=== PATIENT | male | born 1935 | race Caucasian/White ===

== ENCOUNTER 2025-06-28 15:48 | Outpatient (AMB) | payer OTHER, MEDICARE, SELFPAY ==
--- OUTSIDE RECORDS SUMMARY | 2025-05-02 07:30 | XMS_ITS ---
[facility] Organization [facility] Address [address] [place] [address] Care Team Providers Care Computer Network Support Specialist Name Role Phone Ana Farias Primary Care Provider [phone] Keisha Ding [phone] REASON FOR VISIT home: dementia Encounters Encounter Location Date Provider Diagnosis [facility] [address] [place] [address] 05/02/2025 Keisha Ding Plan Of Treatment Next Appt Details Provider Name:Ana grady, 06/30/2025 09:30:00 AM, [address] [place], [address], Provider Name:Keisha Ding , 07/25/2025 11:30:00 AM, [address] [place], [address], Progress Notes * SANDI ALEXDOB:1935 ( 89 yo M)Acc No.[id number]:05/02/2025 Progress Note Patient: ALEX NOGUEIRA Provider: Mariam Ding NP :1935 A ge:89 Y S ex:Male Date:05/02/2025 C HN#:[id number] Address[place] [id number] Pcp:Ana Farias Subjective: * Chief Complaints: * H ome: dementia Care Plan Details* * Electronic signature of Rich Ding NP on 06/28/2025 at 05:59 PM EDT Sign off status: Pending * Provider: Mariam Ding NP Date: 0 05/02/2025 Generated for Randall recio/Alicia/Kaylan on: 0 06/28/2025 05:59 PM EDT
--- OUTSIDE RECORDS SUMMARY | 2025-06-14 09:00 | XMS_ITS | Encounter Summary ---
Author Organization [facility] Address [address] [facility] [address] [place] [phone] Phone Care Team Providers Care Pipe Processor Name Role Phone Ana Farias MD Unavailable [phone] Ana Farias MD Primary Care Provider + Reason for Visit * Auth/Cert (Routine) Specialty Diagnoses / Procedures Referred By Linh kumar Referred To Contact Referral ID Status Reason Start Date Expiration Date Visits Re quested Visits Authorized [id number] 1 1 Encounter Details Date Type Department Care Team (Late st Contact Info) Description 06/14/2025 9:00 AM EDT Home Care Visit [facility] [address] [place] [phone] Iraida Espinoza RN [address] [place] [address] [email or web address] SN OASIS RECERTIFICATION/FUP Social History Tobacco Use Types Packs/Day Years Used Date Smoking Tobacco: Former Cigarettes Q uit: 9 Smokeless Tobacco: Never Alcohol Use Standard Drinks/Week Comments No 0 (1 standard drink = 0.6 oz pur e alcohol) Home Health Assessment: Transportation Answer Date Recorded Lack of Transportation (Medical) No 05/04/2025 Lack of Transportation (Non-Medical) No 05/04/2025 Patient Unable or Declines to Respond No 05/04/2025 Education Answer Date Recorded Are you interested in more education? Not on marcin e 02/13/2023 Are you concerned about learning? Not on file 02/13/2023 No 02/13/2023 No 02/13/2023 Food Answer Date Recorded Within the past 6 months we worried whether our food would run out before we got money to buy more. Never True 04/29/2025 Within the past 6 months the food we bought just didn't last and we didn't have enough money to get more. Never True Residential Stability Answer Date Recor ded What is your housing situation today? I have windy sing 04/29/2025 How many times have you move d in the past 12 months? Zero (I did not move) 04/29/2025 Paying for Meds Answer Date Recorded Do you have trouble paying for medicines? No 04/29/2025 Paying Utility Bills Answer Date Record ed Do you have trouble paying your heating or elect ricity bill? No 04/29/2025 Transportation Answer Date Recorded Has the lack of transportati on kept you from medical appointments or from getting medications? No 04/29/2025 Digital Access Answer Date Recorded No 04/29/2025 Yes 04/29/2025 Do you have reliable internet access at home? Ye s 04/29/2025 Do you have a device (e.g., phone, tablet, computer) with a working camera? Yes 04/29/2025 Intimate Partner Violence Answer Date R ecorded Are you denied basic needs s uch as food, clothing, or medical care? No 04/29/2025 In the past 12 months have y ou been in a relationship with a person who hurts, threatens, or tries to control you? No 04/29/2025 Are you denied basic needs s uch as food, clothing, or medical care? No 04/29/2025 In the past 12 months have y ou been in a relationship with a person who hurts, threatens, or tries to control you? No 04/29/2025 Sex and Gender Information Value Date Recorded Sex Assigned at Male 04/07/2023 1:33 PM EDT Legal Sex Male 7:20 PM EST Gender Identity Male 04/07/2023 1:33 PM EDT Sexual Orientation Straight 04/07/2023 1: 33 PM EDT documented as of this encounter Last Filed Vital Signs Vital Sign Reading Time Taken Comments Blood Pressure 124/78 06/14/2025 12:35 PM EDT Pulse 78 06/14/2025 12:35 PM EDT Temperature 36.8 C (98.2 F) 06/14/2025 12:35 PM EDT Respiratory Rate 18 06/14/2025 12:35 PM EDT Oxygen Saturation 98% 06/14/2025 12:35 PM EDT Inhaled Oxygen Concentration - - Weight - - Height - - Body Mass Index - - documented in this encounter Plan of Treatment Upcoming Encounters Date Type Department Care Team (Late st Contact Info) Description 07/01/2025 10:00 AM EDT Home [facility] Visit [facility] [address] [place] [phone] Codi Powell RN [address] [place] [phone] 07/04/2025 3:00 AM EDT Home Care Visit [facility] [address] [place] [phone] Codi Powell RN [address] [place] [phone] 07/11/2025 2:00 AM EDT Home Care Visit [facility] [address] [place] [phone] Codi Powell RN [address] [place] [phone] 07/18/2025 3:30 AM EDT Home Care Visit [facility] [address] [place] [phone] Codi Powell RN [address] [place] [phone] 07/25/2025 1:30 AM EDT Home Care Visit [facility] [address] [place] [address] Codi Powell RN [address] [place] [address] 08/01/2025 1:30 AM EDT Home [facility] Visit [facility] [address] [place], [place] [phone] Codi Powell RN [address] [place] [address] 08/10/2025 12:30 AM EDT Appointment [facility] [address] [place], [place] [phone] Codi Powell RN [address] [place] [address] documented as of this encounter Visit Diagnoses Not on filedocumented in this encounter Additional Health Concerns 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 Assessment Noted Time PHQ-9 Depression Total Score: 11 021 11:25 AM EST PHQ-2 Depression Total Score: 0 09/07/20 21 11:25 AM EST documented as of this encounter Home Health Visit - Care Plan Visit Details Visit Type -SN OASIS RECERTI FICATION/FUP Discipline -Residential Problems Problem Description Start Date Status Goals Interve ntions HH - Urinary Elimination - Impaired Disciplines: All Active Home Health Disciplines, Residential 04/16/2025 Active - 2 problem interventions scheduled/document ed in this visit HH - Wound Disciplines: All Active Home Health Disciplines 04/16/2025 Active 1 goal linked to scheduled/document ed intervention 1 goal intervention scheduled/document ed in this visit HH - Medication Management Disciplines: All Active Home Health Disciplines 04/16/2025 Active 1 goal linked to scheduled/document ed intervention 2 goal interventions scheduled/document ed in this visit HH - Focus of Care and Teaching Disciplines: All Active Home Health Disciplines w/RD 04/16/2025 Active 1 goal linked to scheduled/document ed intervention 1 goal intervention scheduled/document ed in this visit HH - Emergency Planning - Knowledge of Disciplines: All Active Home Health Disciplines 04/16/2025 Active 1 goal linked to scheduled/document ed intervention 2 goal interventions scheduled/document ed in this visit HH - Standard of Care Disciplines: All Active Home Health Disciplines 04/16/2025 Active 1 goal linked to scheduled/document ed intervention 2 goal interventions scheduled/document ed in this visit Goals Goal Associated Problem Outcome Goal Met? Visit Notes HH - Demonstrate/verbalize wound care management, wound/lesion will be free from complications HH - Wound No HH - Safe medication management, avoid unnecessary harm related to medication errors and/or interactions HH - Medication Management No HH - Communication and collaboration to achieve patient goals HH - Focus of Care and Teaching No HH - Knowledge of options for managing care in the event of an emergency related situation. HH - Emergency Planning - Knowledge of No HH - Achieve care management for a safe to home/community discharge from homecare HH - Standard of Care No Interventions Intervention Associated Problem/Goal Status Variance Visit Notes HH - Insert/change indwelling calderón catheter: Description: #20FR 10 CC Balloon SPT Monthly and PRN changes [facility] Problem:HH - Urinary Elimination - Impaired Completed HH - Catheter irrigation as follows: Description: Weekly and/or PRN flushes to SPT 60cc either of sterile water or normal saline Problem:HH - Urinary Elimination - Impaired Completed HH - Assess wounds/lesions/cardona Description: LOCATION: wound to left inner thigh and pressure ulcer stage 1 to left buttocks Problem: - Wound Goal:HH - Demonstrate/verbalize wound care management, wound/lesion will be free from complications Completed - I/E medication management: administration, purpose, dosages, preparation, setup, scheduling, side effects, food/drug interactions, and potential complications as indicated Description: Update patient's copy of medication list as needed. Problem:HH - Medication Management Goal:HH - Safe medication management, avoid unnecessary harm related to medication errors and/or interactions Completed HH - Complete medication review every visit and medication reconciliation as indicated. Pharmacy information: Description: medication reconciliation at [facility], medication review at each visit Problem: - Medication Management Goal:HH - Safe medication management, avoid unnecessary harm related to medication errors and/or interactions Completed HH - Focus of care, teaching completed and plan for next visit Problem: - Focus of Care and Teaching Goal:HH - Communication and collaboration to achieve patient goals Completed Primary Clinical Focus this Visit & Instruction Provided: PT AOX3, VSS/ AFEBRILE/ DENIES CADENA, BLURRY VISION, NO HEARING CONCERNS, NO SWALLOWING ISSUES /NO DIZZINESS/ LSCTA, NO SOB OR COUGH/ BSPOS / NO CONSTIPATION/ URINE IS CLEAR, ostomy OSTOMY CARE PROVIDED TODAY, SOME YELLOW DC AROUND THE STOMA OF OSTOMY. CATHETER TO BE CHANGED UPON NEXT VISIT. ,NO ODOR. DENIES ANY INCREASE OF WEAKNESS, AMBULATING WITHOUT DIFFICULTY OR NEW CONCERNS Instruction Provided to: patient Response to Instruction/Teachin g: Is partially able to teach back topics as evidenced by CONVO. Plan for Next Visit Specific Focus & Education Needed: OSTOMY CHANGE, ASSESS BUTTCKS New Orders: NNO Updated Discharge Plan: CHRONIC OSTOMY CARE, NOONE IDENTIFIED TO TEACH - I/E management of care in an urgent or emergency (ER) situation: When to call your Home Care Team/911, ER plans, supplies, evacuation, when to contact local ER officials and how to stay informed Problem:HH - Emergency Planning - Knowledge of Goal:HH - Knowledge of options for managing care in the event of an emergency related situation. Completed - Emergency planning assessment: the emergency plan, supplies needed, emergency contact numbers and an evacuation plan were reviewed Description: Patient is/are knowledgeable of emergency plans. Problem:HH - Emergency Planning - Knowledge of Goal:HH - Knowledge of options for managing care in the event of an emergency related situation. Completed HH - Assess vital signs, pulse oximetry, pain, and as indicated, orthostatic vital signs Description: use agency-specific parameters Problem:HH - Standard of Care Goal:HH - Achieve care management for a safe to home/community discharge from homecare Completed HH - Assess skin integrity Problem: - Standard of Care Goal:HH - Achieve care management for a safe to home/community discharge from homecare Completed documented in this encounter Care Teams Pipe Processor Relationship Specialty Start Date End Date Ana Farias MD [address] [place] [phone] [email or web address] PCP - General Family Medicine 01/28/19 Ana Farias MD [address] [place] [phone] [email or web address] Historical LMR Provider 08/10/17 documented as of this encounter Additional Source Comments The information contained in this document represents components of the legal health record. It is not the complete legal health record.[facility]
--- OUTSIDE RECORDS SUMMARY | 2025-06-27 07:30 | XMS_ITS ---
Author Organization [facility] marshall Address [address] [place] [address] Care Team Providers Care Engraver Copperplate Name Role Phone Ana Farias Primary Care Provider [phone] Keisha Ding Unavailable [phone] REASON FOR VISIT home:dementia Medications Medication SIG (Take, Route, Frequency, Duration) Notes Start Date End Date Status buPROPion HCl ER (XL) 150 MG Tablet Extended Release 24 Hour 1 tablet Orally Once a day; Duration: 90 days Active Lisinopril 10 MG Tablet 1 tablet Orally once a day; Duration: 90 days Active Albuterol Sulfate HFA 108 (90 Base) MCG/ACT Aerosol Solution 1 puff as needed Inhalation every 4 hrs as needed for wheeze; Duration: 15 days Active Advil 200 MG Tablet 1 tab(s) orally ever y 6 hours prn Active Aspirin 325 MG Tablet 1 tab(s) orally QD Active Vitamin D 25 MCG (1000 UT) Tablet 1 tablet Orally Once a day Active Vitamin B Complex TAB 1 PO QD Active Travoprost (THERESA Free) 0.004 % Solution 1 drop into affected eye in the evening Ophthalmic Once a day Active Cefpodoxime Proxetil 200 MG Tablet 1 tablet with food Orally every 12 hrs Active Acetaminophen 325 MG Tablet 2tabs Orally every 6 hrs As needed Active Mupirocin 2 % Ointment 1 application Ext ernally 3x a day Active MiraLax 17 GM/SCOOP Powder 1 scoop mixed with 8 ounces of fluid Orally Once a day Active Bactrim DS 800-160 MG Tablet 1 tablet Orally twice a day Active Social History Social History Additional Details Category Social Info Options Details Social History 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 delmar is really having trouble walking. 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 ; Benign prostatic hyperplasia with lower urinary tract symptoms N40.1 ; ADHD, combined type F90.2 ; HTN I10 ; Hyperlipidemia unspecified E78.5 ; Hypercholesterolemia E78.00 ; Other megaloblastic anemias, 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 ; CKD, unspecified N18.9 ; Parkinson's disease G20 ; 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 ; Dementia NOS F03.90 and Hearing loss Unspecified H90.5 Assessments Encounter Date Diagnosis (ICD Code) Assessment Notes Treatment Notes Treatment Clinical Notes Section Notes 06/27/2025 Other asthma (ICD-10 - J45.998) 06/27/2025 Alzheimer's disease, unspecified (ICD-10 - G30.9) 06/27/2025 Atherosclerosis of renal artery (ICD-10 - I70.1) 06/27/2025 Elevated Homocystein e (ICD-10 - E72.19) 06/27/2025 Benign prostatic hyperplasia with lower urinary tract symptoms (ICD-10 - N40.1) 06/27/2025 ADHD, combined type (ICD-10 - F90.2) 06/27/2025 HTN (ICD-10 - I10) 06/27/2025 Hyperlipidemia unspecified (ICD-10 - E78.5) 06/27/2025 Hypercholesterolemia (ICD-10 - E78.00) 06/27/2025 Other megaloblastic anemias, not elsewhere classified (ICD-10 - D53.1) 06/27/2025 CKD, unspecified (ICD-10 - N18.9) 06/27/2025 Parkinson's disease (ICD-10 - G20) 06/27/2025 Vascular parkinsonis m (ICD-10 - G21.4) 06/27/2025 Dementia NOS (ICD-10 - F03.90) 06/27/2025 Hearing loss Unspecified (ICD-10 - H90.5) 06/27/2025 Other plan 1) they have good services at this time and things seems stable but since it's been pretty unpredictable I will return in a month. 2) continue to monitor esquivel care, PT, Urology, Cognition, Advanced care planning/courtney, Plan Of Treatment Next Appt Details Follow Up: 4 Weeks, Reason: home: dementia [facility] 09:30:00 AM, [address] [place], [address], Provider Name:Keisha Ding , 07/25/2025 11:30:00 AM, [address] , [place], [id number], History and Physical Notes * Examination Category Sub-Category Detail Notes Category Not es General Examination HEENT: Head - NC/AT, clear c onjunctiva calderón draining clear yellow urine Lungs: regular breathing ra te and effort - lungs are clear Extremities: no clubbing, no eli a General Appearance: Well appearing and i n no acute distress - He continues to look great - again just freshly showered having exercised - his pulse rate is up a bit but caregiver states that he just worked out on exercise machine, then went upstairs - showered and returned downstairs and has finally reclined but he has be very active prior to my checking vitals. he seems quite vibrant and comfortable and talks easily w/ o distress Skin all clear no lesion seen Neurologic Exam: non-focal exam - cog nition continues to appear good (see hpi) he appears unimpaired (understanding that he is -) Musculoskeletal he walks into room w / walker and caregiver behind him, but he manages to sit w/ some assistance from John but he seems more in control of his body than I have seen previously Progress Notes * LUIS M JUNIOR:1935 ( 89 yo M)Acc No.[id number]:06/27/2025 Progress Note Patient: DELMAR NOGUEIRA Provider: Mariam Ding NP :1935 A ge:89 Y S ex:Male Date:06/27/2025 C #:[id number] Address:[address] [facility], [id number] Pcp:Ana Farias Subjective: * Chief Complaints: * 1 . Home:dementia. * HPI: I nterim History: home visit secondary to disability chart reviewed: no changes noted since last seen ARRIVED IN HOME 1130-12:30 time split between and pt TOTAL TIME SPENT 4 5 mins including team meeting and documentation after visit. with message sent to PCP Interim History: previous note:reviewed [age] year old male presents with c/o Hospitalizations A dmit date: 04/29/25 D ischarge Date: 05/03/25 F acility: [facility] D iagnosis: severe sepsis secondary to UTI P ending consults: urology outpattient P ending studies: none Home visit w/ pt and his - Delmar is upstairs w/ his aide having a shower so much of the visit was conducted w/ his though I met w/ him at the end of the visit. Courtney states that delmar is doing very well and she is better because of it. she is sleeping more and this has really helped the situation. 2 nights of 6 hours. Urinary system: tomorrow they see the new urologist - she's been worried about her decision to have suprapubic catheter. but he hasn't had infection 2 months. so she is very happy to see that it was a good decsision was hard to have to make this alone. Caregiving: things feel better because she (courtney) has had 2 nights of sleeps she thinks that is because she is a bit less stressed and puts her book down at 11 otherwise she will keep reading VNA: still coming but only once a month - they change catheter - this was to be the first one but they called to reschedule but since they have appt tomorrow the urologist will change it. she does the dressing and it's going better - she feels that it's better to do it - was squeamish - but now is ok. no issues COGNITION: he is very clear, less disorientation with less hospitalizations SUPPORTS: going ok, since she is doing better - had a nice birthday celebration w/ him...they don't do the celebrations here I'm done w/ hostessing . Thrnksgiving : son ordered a hospital bed for 3 nights and ordered a ride for them - this feels that (kush) is really getting this issue. she feels that he notices things on her. - noticed tremor and she avoided conversation 'don't want to talk about it until I know what it is ...son in [place] was asking about disability - of hers 'she said - I don't want to be a burden to any of the children' - they have lives to live discussed her care of delmar....long conversation about advanced care thoughts and how she feels about accepting help - for herself but she feels regarding delmar that she loves him and wants to see him have a good life - she complains at times aobut his caretaking but she also feels that if given a choice she woujldn't put him in a home (this was discussed to also compliment her potential need for care (possible parkinsons) and her reticence to accept care - she is afraid of the burden on her kids - this is a subject covered more in her chart but also just touched on today for more discussion once the diagnosis of parkinsons is clear. she has Not told delmar about the possiblity as he holds on to somethings and worries - she wants to protect him from that listening to delmar and his caregiver - very interesting talk going back and forth - delmar is well matched with john and they are talking extensively about complex issues. caregiver states that delmar was working out on the exercise machine and did a long work out and was at a harder level - delmar looks stronger and looks like he's lost weight. When he comes down he is pleasant and quite conversant w/ me - smiling and looking very happy and well taken care of - his strength is notably improved and his color and manner see improved not declined ADVANCED CARE CONVERSATION: limited today - courtney states that she wouldn't put him in a home - that she wants to keep him home - this is not a change but she is talking aobut it in light of her possible decline - this part would be very distressing to her as her goal is to keep him home. * ROS: S ee HPI. Other systems reviewed and noncontributory except for as noted above mood seems good and sleeps well. not getting up at night, in hospital bed and has a camera on him. she sleeps in adjacent room - he sleeps in living room. * Medical History: * Surgical History: * Hospitalization/Major Diagno stic Procedure: * Family History: F ather: 87 yrs. M other: , basal cell CA; fr breast ca, diagnosed with Cancer. M aternal Grand Father: CA, diagnosed with Cancer. M aternal Grand Mother: CA, diagnosed with Cancer. S ibluanne: . Tobias jackson: dtr w/ basal cell skin ca, diagnosed with Cancer. 3 brother(s) - healthy. 3 son(s) , 2 daughter(s) . . F amily History Verified..? eldest daughter had CA 11 years ago, -spinal CA-is in remission Uncle of massive heart attack denies family hx bipolar though several suicidal people and early of one sib Father and Brother h/o Parkinson's disease youngest Brother in April of 2021 of leukemia brother of parkinson december/January 2024. * Social History: Quan greenes: in [address] [place] in [place]. Smoking Smart Form A re you a:: nonsmoker. S moking: no?Current Smoker: No. A lcohol: 1-2 drinks per week. Marital Status: . Children: 5 -3 sons, 2 daughters. 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 Exercise: walking 3-4 x a week.delmar is really having trouble walking.. Caffeine: 2 cups of tea. Social History Verified. loves to sail. * Medications: T aking Bactrim DS 800-160 MG Tablet 1 tablet Orally twice a day , Taking MiraLax 17 GM/SCOOP Powder 1 scoop mixed with 8 ounces of fluid Orally Once a day , Taking Mupirocin 2 % Ointment 1 application Externally 3x a day , Taking Acetaminophen 325 MG Tablet 2tabs Orally every 6 hrs As needed, Taking Cefpodoxime Proxetil 200 MG Tablet 1 tablet with food Orally every 12 hrs , Taking Travoprost (THERESA Free) 0.004 % Solution 1 drop into affected eye in the evening Ophthalmic Once a day , Taking Vitamin B Complex TAB 1 PO QD , Taking Vitamin D 25 MCG (1000 UT) Tablet 1 tablet Orally Once a day , Taking Aspirin 325 MG Tablet 1 tab(s) orally QD , Taking Advil 200 MG Tablet 1 tab(s) orally every 6 hours , Notes to Pharmacist: prn, Taking Albuterol Sulfate HFA 108 (90 Base) MCG/ACT Aerosol Solution 1 puff as needed Inhalation every 4 hrs as needed for wheeze , Taking Lisinopril 10 MG Tablet 1 tablet Orally once a day , Taking buPROPion HCl ER (XL) 150 MG Tablet Extended Release 24 Hour 1 tablet Orally Once a day , Medication List reviewed and reconciled with the patient * Allergies: Allergies Verified. Objective: * Vitals: I nitials:ms, HR: 110 /min, PulseOx: 98, BP: 138/88 mm Hg. * Examination: G eneral Examination: General Appearance: W ell appearing and in no acute distress - He continues to look great - again just freshly showered having exercised - his pulse rate is up a bit but caregiver states that he just worked out on exercise machine, then went upstairs - showered and returned downstairs and has finally reclined but he has be very active prior to my checking vitals. he seems quite vibrant and comfortable and talks easily w/ o distress. S kin a ll clear no lesion seen. H EENT: H ead - NC/AT, clear conjunctiva. L ungs: r egular breathing rate and effort - lungs are clear. E xtremities: n o clubbing, no edema . N eurologic Exam: n on-focal exam - cognition continues to appear good (see hpi) he appears unimpaired (understanding that he is -). M usculoskeletal h e walks into room w/ walker and caregiver behind him, but he manages to sit w/ some assistance from John but he seems more in control of his body than I have seen previously. f oley draining clear yellow urine. Assessment: * Assessment: 1. A lzheimer's disease, unspecified - G30.9 (Primary) 2 . O ther asthma - J45.998 3 . A therosclerosis of renal artery - I70.1 4 . E levated Homocysteine - E72.19 5 . B enign prostatic hyperplasia with lower urinary tract symptoms - N40.1 6 . 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 H yperlipidemia unspecified - E78.5 9 . H ypercholesterolemia - E78.00 1 0. O ther megaloblastic anemias, not elsewhere classified - D53.1 1 1. C KD, unspecified - N18.9 1 2. P arkinson's disease - G20 1 3. 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 D ementia NOS - F03.90 1 5. H earing loss Unspecified - H90.5 Plan: * Treatment: * Follow Up: 4 Weeks (Reason: home: dementia) Billing Information: * Visit Code: 91592 Established patient, moderate to high severity. Care Plan Details* * Sign off status: Completed true * Provider: Mariam Ding NP Date: 0 06/27/2025 Generated for Randall recio/Alicia/Kaylan on: 0 06/28/2025 05:58 PM EDT
--- NOTE | 2025-06-28 14:54 | A.OFFVIS_ITS ---
Intake Visit Reasons: urinary retention/SPT change Intake Note: New Patient is present for retention SPT change #20 FF Urology Rx:none Blood Thinners:none Imaging completed: none Certified Phlebotomist Required: No Accompanied by: Other Relationship Allergies No Known Allergies Allergy (Verified 06/28/25 15:54) HPI Comments Details: Tristan is a pleasant male. He is a patient of . He is seen for the following urologic conditions - neurogenic bladder Here for suprapubic tube change 20 [place] Crowley catheter exchange Long discussion with patient, , son regarding suprapubic tube management particularly use of bladder cycling during the day and overnight bag. 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 Ayala. Review of Systems Const Denies chills and Denies fever(s) Card Reports no additional complaints and Denies syncope Resp Denies cough GI Denies abdominal pain and Denies heartburn Reports as per HPI and Denies change in libido Neuro Denies syncope Psych Denies change in libido Endo Denies change in libido Physical Exam Const General: cooperative, healthy appearing, comfortable and no acute distress Orientation/consciousness: patient oriented x3 HEENT Face and sinus: Yes normal facial exam Mouth: moist mucous membranes Neck Neck: Yes normal visual inspection, Yes full ROM and Yes trachea midline Chest Chest palpation & inspection: normal inspection of the chest Resp Effort & Inspection: normal respiratory effort, able to speak in complete sentences and no respiratory distress GI Inspection: Yes normal to inspection Back/Spine/Pelvis Cervical Spine: normal cervical lordosis Thoracic/Lumbar Spine: thoracic and lumbar spine normal to inspection Skin General skin exam: no rashes or lesions noted Neuro General: patient oriented x3, gait normal, tone normal and moves all extremities Extrem General: Yes normal to inspection and Yes capillary refill normal Office Procedures Bladder/Catheter Procedure Details: Twenty [place] Crowley catheter replaced suprapubic 7 cc balloon Clean technique [id number] of bladder tube Procedure code (CPT) selection complete Assessment & Plan Assessment & Plan (1) Hypotonic neurogenic bladder: Code(s): N31.9 - Neuromuscular dysfunction of bladder, unspecified Category: Medical (2) Suprapubic catheter: Code(s): Z93.59 - Other cystostomy status Category: Medical Plan Suprapubic tube Orders: Orders AMB Bladder/Catheter Procedure Today N31.9 - Neuromuscular dysfunction of bladder, unspecified Medications: New ascorbic acid (vitamin C) 1,000 mg PO DAILY 90 tabs 1RF 90 days N31.9 - Neuromuscular dysfunction of bladder, unspecified Patient Instructions: This note is constructed using voice recognition software. While every effort has been made to ensure accuracy box press operator errors may have been included. Imaging studies, laboratory and physical exam results were discussed and reviewed in detail. No major barriers to patient understanding were identified. An opportunity to ask questions regarding the treatment plan was provided. All questions were answered. The patient expressed understanding and agreement with the above treatment plan. The patient is aware they should contact our office by phone for worsening of their current condition or the appearance of new urologic symptoms. Compliance is encouraged with any medications and followup testing that is ordered. It is a privilege to participate in the urologic care of your patient. If you have any questions or concerns regarding treatment for the above conditions, or other urologic issues, please do not hesitate to contact me. The office telephone contact is [phone]. Sincerely, Dr Alpesh Coon MD, [facility] - Urology Compassionate Specialist Care for the Genitourinary System Coding Level of Care Code New Pt Level 4 (70045) Complex EM visit Add On G2211 Diagnoses Hypotonic neurogenic bladder N31.9 Suprapubic catheter Z93.59 CPT Codes Bladder/Catheter Procedure - CPT: 00669-Nhreer of bladder tube ([id number])
--- OUTSIDE RECORDS SUMMARY | 2025-06-28 17:58 | XMS_ITS | Encounter Summary ---
Author Organization [facility] Address [address] [place] [address] Phone Care Team Providers Care Digester Capper Name Role Phone Arjun Zhou MD Unavailable Ryan Clemente MD Unavailable Ana Farias MD Unavailable Ana Farias MD Primary Care Provider + Encounter Details Date Type Department Care Team (Late st Contact Info) Description 03/28/2019 Ancillary Orders [facility], X-Ray - [address] [place] [address] Lora Lucas PA [address] [facility] [place] [address] [email or web address] Social History Tobacco Use Types Packs/Day Years Used Date Smoking Tobacco: Former Cigarettes Q uit: 9 Smokeless Tobacco: Never Alcohol Use Standard Drinks/Week Comments No 0 (1 standard drink = 0.6 oz pur e alcohol) Sex and Gender Information Value Date Recorded Sex Assigned at Male 04/07/2023 1:33 PM EDT Legal Sex Male 7:20 PM EST Gender Identity Male 04/07/2023 1:33 PM EDT Sexual Orientation Straight 04/07/2023 1: 33 PM EDT documented as of this encounter Plan of Treatment Upcoming Encounters Date Type Department Care Team (Late st Contact Info) Description 07/01/2025 10:00 AM EDT Home Care Visit Self [facility] [address] [place] [phone] Codi Powell RN [address] [place] [address] [email or web address] 07/04/2025 3:00 AM EDT Home Care Visit Self [facility] [address] [place] [phone] Codi Powell RN [address] [place] [address] [email or web address] 07/11/2025 2:00 AM EDT Home Care Visit Self [facility] [address] [place] [phone] Codi Powell RN [address] [place] [phone] [email or web address] 07/18/2025 3:30 AM EDT Home Care Visit Self [facility] [address] [place] [phone] Codi Powell RN [address] [place] [address] [email or web address] 07/25/2025 1:30 AM EDT Home Care Visit Self [facility] [address] [place] [phone] Codi Powell RN [address] [place] [address] [email or web address] 08/01/2025 1:30 AM EDT Home Care Visit Self [facility] [address] [place] [phone] Codi Powell RN [address] [place] [phone] [email or web address] 08/10/2025 12:30 AM EDT Appointment [facility] [address] [place] [phone] Codi Powell RN [address] [place] [address] documented as of this encounter Results * XR CHEST PA AND LATERAL 2 VIEWS (03/28/2019 2:28 PM EDT) Anatomical Region Laterality Modality Chest Radiographic Nikky ging 03/28/2019 2:30 PM EDT Impressions 03/28/2019 2:34 PM EDT No acute chest disease. POS - [id number] Narrative 03/28/2019 2:34 PM EDT HISTORY: As above. COMPARISON: 01/08/2019. CHEST RADIOGRAPH FINDINGS: Two views obtained. Heart is normal in size. Stable aortic tortuosity. Lungs are clear. Stable mild thoracic kyphosis and spondylosis. No acute soft tissue findings. Procedure Note Zofia Lr MD - 03/28/2019 HISTORY: As above. COMPARISON: 01/08/2019. CHEST RADIOGRAPH FINDINGS: Two views obtained. Heart is normal in size. Stable aortic tortuosity.Lungs are clear. Stable mild thoracic kyphosis and spondylosis. No acutesoft tissue findings. IMPRESSION: No acute chest disease. POS - [id number] us Lora Lucas PA IMG XR CHEST Final Resul t documented in this encounter Visit Diagnoses Diagnosis Cough Cough documented in this encounter Additional Health Concerns Infection Onset Date Last Indicated Resolved Time CoV-Risk 04/07/2023 04/07/2023 04/18/2023 1:24 AM EDT CoV-Risk 10/25/2023 10/25/2023 10/26/2023 3:40 PM EST CoV-Risk Comment:Per note documentation 06/02/2024 06/02/2024 08/14/202 4 2:29 PM EDT CoV-Risk Comment:Per note documentation 10/28/2024 10/30/2024 10:10 AM EST CoV-Risk Comment:Per note documentation 11/11/2024 11/11/2024 7:23 AM EST CoV-Risk 11/23/2024 11/23/2024 12/04/2024 1:21 AM EST CoV-Risk Comment:Per note documentation 04/09/2025 04/09/2025 2:50 PM EDT 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 CoV-Risk Comment:Per note documentation 04/29/2025 04/29/2025 7:48 PM EDT documented as of this encounter Care Teams Digester Capper Relationship Specialty Start Date End Date Ana Farias MD [address] [place] [phone] [email or web address] PCP - General Family Medicine 01/28/19 Arjun Zhou MD [address] [place] [phone] Historical LMR Provider 08/10/17 Ryan Clemente MD [address] [place] [phone] [email or web address] Historical LMR Provider 08/10/17 10/27/21 Ana Farias MD [address] [place] [phone] [email or web address] Historical LMR Provider 08/10/17 documented as of this encounter Additional Source Comments The information contained in this document represents components of the legal health record. It is not the complete legal health record.[facility]
--- OUTSIDE RECORDS SUMMARY | 2025-06-28 17:58 | XMS_ITS | Encounter Summary ---
Author Organization [facility] Address [address] [facility] [address] [place] [address] Phone Care Team Providers Care Corporate Investigator Name Role Phone Arjun Zhou MD Unavailable [phone] Ryan Clemente MD Unavailable Ana Farias MD Unavailable [phone] Ana Farias MD Primary Care Provider + Encounter Details Date Type Department Care Team (Late st Contact Info) Description 04/12/2019 Ancillary Orders Virtual Department [address] [place] [address] Ana Farias MD [address] [place] [address] [email or web address] Swelling of left lower extremity; Pain in left lower leg; Redness Social History Tobacco Use Types Packs/Day Years Used Date Smoking Tobacco: Former Cigarettes Q uit: 1958 Smokeless Tobacco: Never Alcohol Use Standard Drinks/Week [...] 10:00 AM EDT Home Care Visit Self [facility] [address] [place] [phone] Codi Powell RN [address] [place] [address] 07/04/2025 3:00 AM EDT Home Care Visit Self [facility] [address] [place] [phone] Codi Powell RN [address] [place] [address] 07/11/2025 2:00 AM EDT Home Care Visit Self [facility] [address] [place] [phone] Codi Powell RN [address] [place] [address] 07/18/2025 3:30 AM EDT Home Care Visit [facility] [address] [place] [phone] Codi Powell RN [address] [place] [address] 07/25/2025 1:30 AM EDT Home Care Visit [facility] [address] [place] [phone] Codi Powell RN [address] [place] [address] 08/01/2025 1:30 AM EDT Home Care Visit Self [facility] [address] [place] [phone] Codi Powell RN [address] [place] [address] 08/10/2025 12:30 AM EDT Appointment Self [facility] [address] [place] [phone] Codi Powell RN [address] [place] [address] documented as of this encounter Results * US Lower Extremity Veins Duplex (Left) (04/12/2019 6:21 PM EDT) Anatomical Region Laterality Modality Hip Left, Thigh Left, Knee L eft, Leg Left, Ankle Left, Foot Left Ultrasound 04/12/2019 7:21 PM EDT Impressions 04/12/2019 7:22 PM EDT Normal left lower extremity venous ultrasound. No acute deep venous thrombosis. POS - [id number] Narrative 04/12/2019 7:22 PM EDT US LOWER EXTREMITY VEINS DUPLEX (LEFT) HISTORY: Swelling of left lower extremity Pain in left lower leg Redness COMPARISON: None. TECHNIQUE: Grayscale, color Doppler and spectral Doppler ultrasound imaging of the deep veins of the left lower extremity. FINDINGS: The left common femoral, saphenofemoral junction, femoral and popliteal veins compress normally. There are no abnormal intraluminal echoes. Color and spectral Doppler waveforms are normal. Visualized deep calf veins compress normally and demonstrate normal Doppler flow. There is normal augmentation with maneuvers. There is no popliteal fossa fluid collection. Procedure Note Jamila Diehl MD - 04/12/2019 US LOWER EXTREMITY VEINS DUPLEX (LEFT) HISTORY: Swelling of left lower extremity Pain in left lower leg Redness COMPARISON: None. TECHNIQUE: Grayscale, color Doppler and spectral Doppler ultrasoundimaging of the deep veins of the left lower extremity. FINDINGS: The left common femoral, saphenofemoral junction, femoral and poplitealveins compress normally. There are no abnormal intraluminal echoes. Colorand spectral Doppler waveforms are normal. Visualized deep calf veinscompress normally and demonstrate normal Doppler flow. There is normalaugmentation with maneuvers. There is no popliteal fossa fluid collection. IMPRESSION: Normal left lower extremity venous ultrasound. No acute deep venousthrombosis. POS - [id number] us Ana Farias MD US VASCULAR Final Re sult documented in this encounter Visit Diagnoses Diagnosis Swelling of left lower extremity Pain in left lower leg Redness Unspecified erythematous condition Swelling of left lower extremity Pain in left lower leg Redness Unspecified erythematous condition documented in this encounter Additional Health Concerns Infection Onset Date Last Indicated Resolved Time CoV-Risk 04/07/2023 04/07/2023 04/18/2023 1:24 AM EDT CoV-Risk 10/25/2023 10/25/2023 10/26/2023 3:40 PM EST CoV-Risk Comment:Per note documentation 06/02/2024 06/02/2024 2:29 PM EDT CoV-Risk Comment:Per note documentation 10/28/2024 10/30/2024 10:10 AM EST CoV-Risk Comment:Per note documentation 11/11/2024 11/11/2024 7:23 AM EST CoV-Risk 11/23/2024 11/23/2024 12/04/2024 1:21 AM EST CoV-Risk Comment:Per note documentation 04/09/2025 04/09/2025 2:50 PM EDT 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 CoV-Risk Comment:Per note documentation 04/29/2025 04/29/2025 7:48 PM EDT documented as of this encounter Care Teams Corporate Investigator Relationship Specialty Start Date End Date Ana Farias MD [address] [place] [address] PCP - General Family Medicine 01/28/19 Arjun Zhou MD [address] [place] [address] Historical LMR Provider 08/10/17 Ryan Clemente MD [address] [place], [place] [address] [address] [email or web address] Historical LMR Provider 08/10/17 10/27/21 Ana Farias MD [address] [place] [address] [email or web address] Historical LMR Provider 08/10/17 documented as of this encounter Additional Source Comments The information contained in this document represents components of the legal health record. It is not the complete legal health record.[facility]
--- OUTSIDE RECORDS SUMMARY | 2025-06-28 17:58 | XMS_ITS | Encounter Summary ---
Author Organization [facility] Address [address] [place] [address] Phone Care Team Providers Care Outsole Flexer Name Role Phone Ana Farias MD Unavailable [phone] Ana Farias MD Primary Care Provider + Encounter Details Date Type Department Care Team (Late st Contact Info) Description 06/02/2024 Procedure Pass [facility], Ct Scan - [address] [id number] Social History Tobacco Use Types Packs/Day Years Used Date Smoking Tobacco: Former Cigarettes Q uit: 1956 Smokeless Tobacco: Never Alcohol Use Standard Drinks/Week Comments No 0 (1 standard drink = 0.6 oz pur e alcohol) Home Health Assessment: Transportation Answer Date Recorded Lack of Transportation (Medical) No 06/05/2024 Lack of Transportation (Non-Medical) No 06/05/2024 Patient Unable or Declines to Respond No 06/05/2024 Education Answer Date Recorded Are you interested in more education? Not on marcin e 02/13/2023 Are you concerned about learning? Not on file 02/13/2023 No 02/13/2023 No 02/13/2023 Food Answer Date Recorded Within the past 6 months we worried whether our food would run out before we got money to buy more. Never True 06/02/2024 Within the past 6 months the food we bought just didn't last and we didn't have enough money to get more. Never True Residential Stability Answer Date Recor ded What is your housing situation today? I have windy auguste 06/02/2024 Number of times moved in last year Not on file 06/02/2024 Paying for Meds Answer Date Recorded Do you have trouble paying for medicines? No 06/02/2024 Paying Utility Bills Answer Date Record ed Do you have trouble paying your heating or elect ricity bill? No 06/02/2024 Transportation Answer Date Recorded Has the lack of transportati on kept you from medical appointments or from getting medications? No 06/02/2024 Digital Access Answer Date Recorded No 06/02/2024 Yes 06/02/2024 Do you have reliable internet access at home? Ye s 06/02/2024 Do you have a device (e.g., phone, tablet, computer) with a working camera? Yes 06/02/2024 Intimate Partner Violence Answer Date R ecorded Are you denied basic needs s uch as food, clothing, or medical care? Patient unable to respond 06/01/2024 In the past 12 months have y ou been in a relationship with a person who hurts, threatens, or tries to control you? Patient unable to respond 06/01/2024 Are you denied basic needs s uch as food, clothing, or medical care? Patient unable to respond 06/01/2024 In the past 12 months have y ou been in a relationship with a person who hurts, threatens, or tries to control you? Patient unable to respond 06/01/2024 Sex and Gender Information Value Date Recorded [...] 10:00 AM EDT Home Care Visit Self [facility] [address] [place] [address] Codi Powell RN [address] [place] [address] 07/04/2025 3:00 AM EDT Home Care Visit Self [facility] [address] [place] [address] Codi Powell RN [address] [place] [address] 07/11/2025 2:00 AM EDT Home Care Visit Self [facility] [address] [place] [address] Codi Powell RN [address] [place] [address] 07/18/2025 3:30 AM EDT Home Care Visit Self [facility] [address] [place] [phone] Codi Powell RN [address] [place] [address] 07/25/2025 1:30 AM EDT Home Care Visit [facility] [address] [place] [phone] Codi Powell RN [address] [place] [address] 08/01/2025 1:30 AM EDT Home Care Visit [facility] [address] [place] [address] Codi Powell RN [address] [place] [address] 08/10/2025 12:30 AM EDT Appointment Self [facility] [address] [place] [address] Codi Powell RN [address] [place] [address] documented as of this encounter Visit Diagnoses Not on filedocumented in this encounter Additional Health Concerns Infection Onset Date Last Indicated Resolved Time CoV-Risk Comment:Per note documentation 06/02/2024 06/02/2024 2:29 PM EDT CoV-Risk Comment:Per note documentation 10/28/2024 10/30/2024 10:10 AM EST CoV-Risk Comment:Per note documentation 11/11/2024 11/11/2024 7:23 AM EST CoV-Risk 11/23/2024 11/23/2024 12/04/2024 1:21 AM EST CoV-Risk Comment:Per note documentation 04/09/2025 04/09/2025 2:50 PM EDT 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 CoV-Risk Comment:Per note documentation 04/29/2025 04/29/2025 7:48 PM EDT Assessment Noted Time PHQ-9 Depression Total Score: 11 021 11:25 AM EST PHQ-2 Depression Total Score: 0 09/07/20 21 11:25 AM EST documented as of this encounter Care Teams Outsole Flexer Relationship Specialty Start Date End Date Ana Farias MD [address] [place] [address] [email or web address] PCP - General Family Medicine 01/28/19 Ana Farias MD [address] [place] [address] [email or web address] Historical LMR Provider 08/10/17 documented as of this encounter Additional Source Comments The information contained in this document represents components of the legal health record. It is not the complete legal health record.[facility]
--- OUTSIDE RECORDS SUMMARY | 2025-06-28 17:58 | XMS_ITS | Encounter Summary ---
Author Organization [facility] Address [address] [place] [address] Phone Care Team Providers Care Test Preparer Name Role Phone Arjun Zhou MD Unavailable Ryan Clemente MD Unavailable [phone] Ana Farias MD Unavailable [phone] Ana Farias MD Primary Care Provider + Ana Farias MD Primary Care Provider + Encounter Details Date Type Department Care Team (Late st Contact Info) Description 07/17/2018 Procedure Pass [facility], [address] [place] [address] Social History Tobacco Use Types Packs/Day Years Used Date Smoking Tobacco: Former Cigarettes Q uit: 1957 Smokeless Tobacco: Never Alcohol Use Standard Drinks/Week [...] 10:00 AM EDT Home Care Visit Self [facility] [address] [place] [address] Codi Powell RN [address] [place] [address] 07/04/2025 3:00 AM EDT Home Care Visit Self [facility] [address] [place] [address] Codi Powell RN [address] [place] [address] 07/11/2025 2:00 AM EDT Home Care Visit Self [facility] [address] [place] [address] Codi Powell RN [address] [place] [address] 07/18/2025 3:30 AM EDT Home Care Visit Self [facility] [address] [place] [phone] Codi Powell RN [address] [place] [address] 07/25/2025 1:30 AM EDT Home Care Visit Self [facility] [address] [place] [address] Codi Powell RN [address] [place] [address] 08/01/2025 1:30 AM EDT Home Care Visit [facility] [address] [place] [address] Codi Powell RN [address] [place] [address] 08/10/2025 12:30 AM EDT Appointment Self [facility] [address] [place], [place] [phone] Codi Powell RN [address] [place] [address] [email or web address] documented as of this encounter Visit Diagnoses [...] documented as of this encounter Care Teams Test Preparer Relationship Specialty Start Date End Date Ana Farias MD [address] [place] [address] [email or web address] PCP - General 10/23/17 01/27/19 Ana Farias MD [address] [place] [address] PCP - General Family Medicine 01/28/19 Arjun Zhou MD [address] [place] [address] Historical LMR Provider 08/10/17 Ryan Clemente MD [address] [place] [address] [email or web address] Historical LMR Provider 08/10/17 10/27/21 nAa Farias MD [address] [place] [address] [email or web address] Historical LMR Provider 08/10/17 documented as of this encounter Additional Source Comments The information contained in this document represents components of the legal health record. It is not the complete legal health record.[facility]
--- OUTSIDE RECORDS SUMMARY | 2025-06-28 17:58 | XMS_ITS | Encounter Summary ---
Author Organization [facility], Address [address] [place] [address] Phone Care Team Providers Care Business Development Recruiter Name Role Phone Ana Farias MD Primary Care Provider + Encounter Details Date Type Department Care Team (Late st Contact Info) Description 04/10/2021 Orders Only [facility] [address] [facility] [address] [place] [address] Lindsay Ayala MD Chronic kidney disease, stage 4 (severe) (HCC); Hypertension Social History Tobacco Use Types Packs/Day Years Used Date Smoking Tobacco: Never Alcohol Use Standard Drinks/Week Comments Yes 1 (1 standard drink = 0.6 oz pur e alcohol) Sex and Gender Information Value Date Recorded Sex Assigned at Not on file Legal Sex Male 9:35 AM EDT Gender Identity Not on file Sexual Orientation Not on file 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 No / Unsure 03/27/2021 2:20 PM EDT documented as of this encounter Plan of Treatment Not on file documented as of this encounter Procedures Procedure Name Priority Date/Time Associated Diagnosis Comments VITAMIN D 25 HYDROXY Routine 05/03/2021 3:22 PM EDT Chronic kidney disease, stage 4 (severe) (HCC) Hypertension RENAL FUNCTION PANEL Routine 05/03/2021 2:22 PM EDT Chronic kidney disease, stage 4 (severe) (HCC) Hypertension URINE ALBUMIN / CREATININE RATIO Routine 05/03/2021 2:21 PM EDT Chronic kidney disease, stage 4 (severe) (HCC) Hypertension CBC Routine 05/03/2021 1:20 PM EDT Chronic kidney disease, stage 4 (severe) (HCC) Hypertension US RENAL COMPLETE Routine 05/03/2021 1:1 8 PM EDT Chronic kidney disease, stage 4 (severe) (HCC) documented in this encounter Results * Vitamin D 25 hydroxy (05/03/2021 3:22 PM EDT) Blood specimen (specimen) Venous blood / Unknown Lindsay Ayala MD LAB BLOOD ORDERABLES Final Resu lt Performing Organization Address [facility] de Phone Number [facility] * Renal function panel (05/03/2021 2:22 PM EDT) Blood specimen (specimen) Venous blood / Unknown Lindsay Ayala MD LAB BLOOD ORDERABLES Final Resu lt Performing Organization Address [facility] de Phone Number [facility] * Urine Albumin / Creatinine Ratio (05/03/2021 2:21 PM EDT) Urine specimen (specimen) Urine specimen obtained by clean catch procedure / Unknown Lindsay Ayala MD LAB URINE ORDERABLES Final Resu lt Performing Organization Address [facility] Co de Phone Number [facility] * CBC (05/03/2021 1:20 PM EDT) Blood specimen (specimen) Venous blood / Unknown Lindsay Ayala MD LAB BLOOD ORDERABLES Final Resu lt Performing Organization Address [facility]/State/ZIP Co de Phone Number [facility] * Ultrasound renal complete (05/03/2021 1:18 PM EDT) Anatomical Region Laterality Modality Body Ultrasound us Lindsay Ayala MD IMG US PROCEDURES Final Result documented in this encounter Visit Diagnoses Diagnosis Chronic kidney disease, stage 4 (severe) (HCC) Hypertension documented in this encounter Care Teams Business Development Recruiter Relationship Specialty Start Date End Date Ana Farias MD [address] [place] [address] PCP - General Family Medicine 02/14/21 documented as of this encounter
--- OUTSIDE RECORDS SUMMARY | 2025-06-28 17:58 | XMS_ITS | Encounter Summary ---
Author Organization [facility] Address [address] [place] [address] [place] [address] Phone Care Team Providers Care Filterer Name Role Phone Arjun Zhou MD Unavailable [phone] Ryan Clemente MD Unavailable Ana Farias MD Unavailable [phone] Ana Farias MD Primary Care Provider + Reason for Referral * Consultation (Elective) - Closed Specialty Diagnoses / Procedures Referred By Linh kumar Referred To Contact Neurology Diagnoses Alzheimer's dementia without behavioral disturbance, unspecified timing of dementia onset Ana Farias MD Phone: tel: fax: [email or web address] [address] [address] Phone: tel: Referral ID Status Reason Start Date Expiration Date Visits Re quested Visits Authorized [id number] Closed 03/31/2019 03/31/2020 1 1 Encounter Details Date Type Department Care Team (Late st Contact Info) Description 03/31/2019 Transcribe Orders [facility] Department of Neurology [address] [place] [address], [address] Floor, [address] [place] [address] Ana Farias MD [address] [place] [address] Alzheimer's dementia without behavioral disturbance, unspecified timing of dementia onset (Primary Dx) Social History Tobacco Use Types Packs/Day Years [...] 07/01/2025 10:00 AM EDT [facility] Visit [facility] [address] [place] [address] Codi Powell RN [address] [place] [address] 07/04/2025 3:00 AM EDT [facility] Visit [facility] [address] [place] [address] Codi Powell RN [address] [place] [address] 07/11/2025 2:00 AM EDT Home Care Visit Self [facility] [address] [place] [phone] Codi Powell RN [address] [place] [address] 07/18/2025 3:30 AM EDT Home Care Visit Self [facility] [address] [place] [address] Codi Powell RN [address] [place] [address] 07/25/2025 1:30 AM EDT Home Care Visit [facility] [address] [place] [phone] Codi Powell RN [address] [place] [address] 08/01/2025 1:30 AM EDT [facility] [address] [place] [phone] Codi Powlel RN [address] [place] [address] 08/10/2025 12:30 AM EDT Appointment [facility] [address] [place] [address] Codi Powell RN [address] [place] [address] Scheduled Referrals Name Type Priority Associated Diagnoses Orde r Schedule Ambulatory referral to [facility] Neurology Outpatient Referral Routine Alzheimer's dementia without behavioral disturbance, unspecified timing of dementia onset Ordered: 03/31/2019 documented as of this encounter Visit Diagnoses Diagnosis Alzheimer's dementia without behavioral disturbance, unspecified timing of dementia onset- Primary documented in this encounter Additional Health Concerns Infection Onset Date Last Indicated Resolved Time CoV-Risk 04/07/2023 04/07/2023 04/18/2023 1:24 AM EDT CoV-Risk 10/25/2023 10/25/2023 10/26/2023 3:40 PM EST CoV-Risk Comment:Per note documentation 06/02/2024 06/02/2024 4 2:29 PM EDT CoV-Risk Comment:Per note documentation 10/28/2024 10/30/2024 10:10 AM EST CoV-Risk Comment:Per note documentation 11/11/2024 11/11/2024 7:23 AM EST CoV-Risk 11/23/2024 11/23/2024 12/04/2024 1:21 AM EST CoV-Risk Comment:Per note documentation 04/09/2025 04/09/2025 2:50 PM EDT 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 CoV-Risk Comment:Per note documentation 04/29/2025 04/29/2025 7:48 PM EDT documented as of this encounter Care Teams Filterer Relationship Specialty Start Date End Date Ana Farias MD [address] [place] [address] [email or web address] PCP - General Family Medicine 01/28/19 Arjun Zhou MD [address] [place] [address] Historical LMR Provider 08/10/17 Ryan Clemente MD [address] [place] [address] [address] [place] [address] [email or web address] Historical LMR Provider 08/10/17 10/27/21 Ana Farias MD [address] [place] [address] [email or web address] Historical LMR Provider 08/10/17 documented as of this encounter Additional Source Comments The information contained in this document represents components of the legal health record. It is not the complete legal health record.[facility]
--- OUTSIDE RECORDS SUMMARY | 2025-06-28 17:58 | XMS_ITS | Encounter Summary ---
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
--- OUTSIDE RECORDS SUMMARY | 2025-06-28 17:58 | XMS_ITS | Encounter Summary ---
Author Organization [facility] Address [address] [place] [address] Phone Care Team Providers Care Landscaping Specialist Name Role Phone Ana Farias MD Unavailable [phone] Ana Farias MD Primary Care Provider + Encounter Details Date Type Department Care Team (Late st Contact Info) Description 04/13/2025 Procedure Pass OR Admitting Dept - Virtual Department [address] [place], [place] [phone] Social History Tobacco Use Types Packs/Day Years Used Date Smoking Tobacco: Former Cigarettes Q uit: 1956 Smokeless Tobacco: Never Alcohol Use Standard Drinks/Week Comments No 0 (1 standard drink = 0.6 oz pur e alcohol) Home Health Assessment: Transportation Answer Date Recorded Lack of Transportation (Medical) No 04/16/2025 Lack of Transportation (Non-Medical) No 04/16/2025 Patient Unable or Declines to Respond No 04/16/2025 Education Answer Date Recorded Are you interested in more education? Not on marcin e 02/13/2023 Are you concerned about learning? Not on file 02/13/2023 No 02/13/2023 No 02/13/2023 Food Answer Date Recorded Within the past 6 months we worried whether our food would run out before we got money to buy more. Never True 04/09/2025 Within the past 6 months the food we bought just didn't last and we didn't have enough money to get more. Never True Residential Stability Answer Date Recor ded What is your housing situation today? I have windy auguste 04/09/2025 How many times have you move d in the past 12 months? Zero (I did not move) 04/09/2025 Paying for Meds Answer Date Recorded Do you have trouble paying for medicines? No 04/09/2025 Paying Utility Bills Answer Date Record ed Do you have trouble paying your heating or elect ricity bill? No 04/09/2025 Transportation Answer Date Recorded Has the lack of transportati on kept you from medical appointments or from getting medications? No 04/09/2025 Digital Access Answer Date Recorded No 04/09/2025 Yes 04/09/2025 Do you have reliable internet access at home? Ye s 04/09/2025 Do you have a device (e.g., phone, tablet, computer) with a working camera? Yes 04/09/2025 Intimate Partner Violence Answer Date R ecorded Are you denied basic needs s uch as food, clothing, or medical care? No 04/09/2025 In the past 12 months have y ou been in a relationship with a person who hurts, threatens, or tries to control you? No 04/09/2025 Are you denied basic needs s uch as food, clothing, or medical care? No 04/09/2025 In the past 12 months have y ou been in a relationship with a person who hurts, threatens, or tries to control you? No 04/09/2025 Sex and Gender Information Value Date Recorded Sex Assigned at Male 04/07/2023 1:33 PM EDT Legal Sex Male 7:20 PM EST Gender Identity Male 04/07/2023 1:33 PM EDT Sexual Orientation Straight 04/07/2023 1: 33 PM EDT documented as of this encounter Plan of Treatment Upcoming Encounters Date Type Department Care Team (Late st Contact Info) Description 07/01/2025 10:00 AM EDT Home Care Visit [facility] [address] [place] [address] Codi Powell RN [address] [place] [address] 07/04/2025 3:00 AM EDT Home Care Visit [facility] [address] [place] [address] Codi Powell RN [address] [place] [address] 07/11/2025 2:00 AM EDT Home Care Visit [facility] [address] [place] [address] Codi Powell RN [address] [place] [address] 07/18/2025 3:30 AM EDT Home Care Visit [facility] [address] [place] [phone] Codi Powell RN [address] [place] [address] 07/25/2025 1:30 AM EDT Home Care Visit [facility] [address] [place] [phone] Codi Powell RN [address] [place] [address] 08/01/2025 1:30 AM EDT Home Care Visit [facility] [address] [place] [phone] Codi Powell RN [address] [place] [address] 08/10/2025 12:30 AM EDT Appointment [facility] [address] [place] [address] Codi Powell RN [address] [place] [address] documented as of this encounter Visit Diagnoses Not on filedocumented in this encounter Additional Health Concerns 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 CoV-Risk Comment:Per note documentation 04/29/2025 04/29/2025 7:48 PM EDT Assessment Noted Time PHQ-9 Depression Total Score: 11 021 11:25 AM EST PHQ-2 Depression Total Score: 0 09/07/20 21 11:25 AM EST documented as of this encounter Care Teams Landscaping Specialist Relationship Specialty Start Date End Date Ana Farias MD [address] [place] [phone] PCP - General Family Medicine 01/28/19 Ana Farias MD [address] [place] [address] [email or web address] Historical LMR Provider 08/10/17 documented as of this encounter Additional Source Comments The information contained in this document represents components of the legal health record. It is not the complete legal health record.[facility]
--- OUTSIDE RECORDS SUMMARY | 2025-06-28 17:58 | XMS_ITS | Encounter Summary ---
Author Organization [facility] Address [address] [place] [address] Phone Care Team Providers Care Entertainment Musician Name Role Phone Ana Farias MD Unavailable [phone] Ana Farias MD Primary Care Provider + Encounter Details Date Type Department Care Team (Late st Contact Info) Description 10/28/2024 Procedure Pass [facility], Ct Scan - [address] [id number] Social History Tobacco Use Types Packs/Day Years Used Date Smoking Tobacco: Former Cigarettes Q uit: 1956 Smokeless Tobacco: Never Alcohol Use Standard Drinks/Week Comments No 0 (1 standard drink = 0.6 oz pur e alcohol) Home Health Assessment: Transportation Answer Date Recorded Lack of Transportation (Medical) No 07/07/2024 Lack of Transportation (Non-Medical) No 07/07/2024 Patient Unable or Declines to Respond No 07/07/2024 Education Answer Date Recorded Are you interested in more education? Not on marcin e 02/13/2023 Are you concerned about learning? Not on file 02/13/2023 No 02/13/2023 No 02/13/2023 Food Answer Date Recorded Within the past 6 months we worried whether our food would run out before we got money to buy more. Never True 10/28/2024 Within the past 6 months the food we bought just didn't last and we didn't have enough money to get more. Never True Residential Stability Answer Date Recor ded What is your housing situation today? I have windy auguste 10/28/2024 How many times have you move d in the past 12 months? Zero (I did not move) 10/28/2024 Paying for Meds Answer Date Recorded Do you have trouble paying for medicines? No 10/28/2024 Paying Utility Bills Answer Date Record ed Do you have trouble paying your heating or elect ricity bill? No 10/28/2024 Transportation Answer Date Recorded Has the lack of transportati on kept you from medical appointments or from getting medications? No 10/28/2024 Digital Access Answer Date Recorded No 10/28/2024 Yes 10/28/2024 Do you have reliable internet access at home? Ye s 10/28/2024 Do you have a device (e.g., phone, tablet, computer) with a working camera? Yes 10/28/2024 Intimate Partner Violence Answer Date R ecorded Are you denied basic needs s uch as food, clothing, or medical care? No 10/28/2024 In the past 12 months have y ou been in a relationship with a person who hurts, threatens, or tries to control you? No 10/28/2024 Are you denied basic needs s uch as food, clothing, or medical care? No 10/28/2024 In the past 12 months have y ou been in a relationship with a person who hurts, threatens, or tries to control you? No 10/28/2024 Sex and Gender Information Value Date Recorded Sex Assigned at Male 04/07/2023 1:33 PM EDT Legal Sex Male 7:20 PM EST Gender Identity Male 04/07/2023 1:33 PM EDT Sexual Orientation Straight 04/07/2023 1: 33 PM EDT documented as of this encounter Functional Status * Calculated C-SSRS Risk Score (Lifetime/Recent) Answer Date of Assessment Author No Risk Indicated 10/28/2024 3:18 PM Zaynab Cross RN * [place] Suicide Severity Rating Scale (Screener/Recent Self-Report) Question Answer Date of Assessment Author 1. Wish to be (Past 1 Month) No 025 3:18 PM Zaynab Cross RN 2. Non-Specific Active Suici shayy Thoughts (Past 1 Month) No 10/28/2024 3:18 PM Zaynab Cross , YAMILE 6. Suicidal Behavior (Lifetime) No 3:18 PM Zaynab Cross, YAMILE documented as of this encounter Plan of Treatment Upcoming Encounters Date Type Department Care Team (Late st Contact Info) Description 07/01/2025 10:00 AM EDT Home Care Visit [facility] [address] [place] [phone] Codi Powell RN [address] [place] [address] 07/04/2025 3:00 AM EDT Home Care Visit [facility] [address] [place] [phone] Codi Powell RN [address] [place] [address] 07/11/2025 2:00 AM EDT Home Care Visit [facility] [address] [place] [phone] Codi Powell RN [address] [place] [address] 07/18/2025 3:30 AM EDT Home Care Visit [facility] [address] [place] [phone] Codi Powell RN [address] [place] [address] 07/25/2025 1:30 AM EDT Home Care Visit [facility] [address] [place] [phone] Codi Powell RN [address] [place] [address] 08/01/2025 1:30 AM EDT Home Care Visit [facility] [address] [place], [place] [phone] Codi Powell RN [address] [place] [address] 08/10/2025 12:30 AM EDT Appointment [facility] [address] [place], [place] [phone] Codi Powell RN [address] [place] [address] documented as of this encounter Visit Diagnoses Not on filedocumented in this encounter Additional Health Concerns Infection Onset Date Last Indicated Resolved Time CoV-Risk Comment:Per note documentation 10/28/2024 10/30/2024 10:10 AM EST CoV-Risk Comment:Per note documentation 11/11/2024 11/11/2024 7:23 AM EST CoV-Risk 11/23/2024 11/23/2024 12/04/2024 1:21 AM EST CoV-Risk Comment:Per note documentation 04/09/2025 04/09/2025 2:50 PM EDT 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 CoV-Risk Comment:Per note documentation 04/29/2025 04/29/2025 7:48 PM EDT Assessment Noted Time PHQ-9 Depression Total Score: 021 11:25 AM EST PHQ-2 Depression Total Score: 0 09/07/20 21 11:25 AM EST documented as of this encounter Care Teams Entertainment Musician Relationship Specialty Start Date End Date Ana Farias MD [address] [place] [address] PCP - General Family Medicine 01/28/19 Ana Farias MD [address] [place] [address] [email or web address] Historical LMR Provider 08/10/17 documented as of this encounter Additional Source Comments The information contained in this document represents components of the legal health record. It is not the complete legal health record.[facility]
--- OUTSIDE RECORDS SUMMARY | 2025-06-28 17:58 | XMS_ITS | Encounter Summary ---
Author Organization [facility] Address [address] [place] [address] Phone Care Team Providers Care Co Supervisor Grounds And Landscape Name Role Phone Ana Farias MD Unavailable [phone] Ana Farias MD Primary Care Provider + Encounter Details Date Type Department Care Team (Late st Contact Info) Description 06/01/2024 Procedure Pass [facility], Ct Scan - [address] [phone] Social History Tobacco Use Types Packs/Day Years [...] Visit [facility] [address] [place] [address] Codi Powell RN [address] [place] [address] 07/04/2025 3:00 AM EDT Home Care Visit [facility] [address] [place] [address] Codi Powell RN [address] [place] [address] 07/11/2025 2:00 AM EDT Home Care Visit [facility] [address] [place] [address] Codi Powell RN [address] [place] [address] 07/18/2025 3:30 AM EDT Home Care Visit [facility] [address] [place] [phone] Codi Powell RN [address] [place] [address] 07/25/2025 1:30 AM EDT Home Care Visit [facility] [address] [place] [phone] Codi Powell RN [address] [place] [address] 08/01/2025 1:30 AM EDT Home Care Visit [facility] [address] [place] [address] Codi Powell RN [address] [place] [address] 08/10/2025 12:30 AM EDT Appointment [facility] [address] [place] [address] Codi Powell RN [address] [place] [address] documented as of this encounter Visit Diagnoses [...] documented as of this encounter Care Teams Co Supervisor Grounds And Landscape Relationship Specialty Start Date End Date Ana Farias MD [address] [place] [address] [email or web address] PCP - General Family Medicine 01/28/19 Ana Farias MD [address] [place] [address] [email or web address] Historical LMR Provider 08/10/17 documented as of this encounter Additional Source Comments The information contained in this document represents components of the legal health record. It is not the complete legal health record.[facility]
--- OUTSIDE RECORDS SUMMARY | 2025-06-28 17:59 | XMS_ITS | Encounter Summary ---
Author Organization [facility] Address [address] [place] [address] Phone Care Team Providers Care Electrical Installation Inspector Name Role Phone Ana Farias MD Unavailable [phone] Ana Farias MD Primary Care Provider + Encounter Details Date Type Department Care Team (Late st Contact Info) Description 10/31/2024 Procedure Pass [facility] [address] [place] [address] Social History Tobacco Use Types Packs/Day Years [...] Visit [facility] [address] [place] [address] Codi Powell RN [address] [place] [address] 07/04/2025 3:00 AM EDT Home Care Visit [facility] [address] [place] [phone] Codi Powell RN [address] [place] [address] 07/11/2025 2:00 AM EDT Home Care Visit [facility] [address] [place] [address] Codi Powell RN [address] [place] [address] 07/18/2025 3:30 AM EDT Home Care Visit [facility] [address] [place] [phone] Codi Powell RN [address] [place] [address] 07/25/2025 1:30 AM EDT Home Care Visit [facility] [address] [place] [phone] Codi Powell RN [address] [place] [address] 08/01/2025 1:30 AM EDT Home Care Visit [facility] [address] [place] [phone] Codi Powell RN [address] [place] [address] 08/10/2025 12:30 AM EDT Appointment [facility] [address] [place] [phone] Codi Powell RN [address] [place] [address] documented as of this encounter Visit Diagnoses [...] documented as of this encounter Care Teams Electrical Installation Inspector Relationship Specialty Start Date End Date Ana Farias MD [address] [place] [address] [email or web address] PCP - General Family Medicine 01/28/19 Ana Farias MD [address] [place] [address] [email or web address] Historical LMR Provider 08/10/17 documented as of this encounter Additional Source Comments The information contained in this document represents components of the legal health record. It is not the complete legal health record.[facility]
--- OUTSIDE RECORDS SUMMARY | 2025-06-28 17:59 | XMS_ITS | Encounter Summary ---
Author Organization [facility] Address [address] [place] [address] Phone Care Team Providers Care Oracle Fusion Middleware Developer Name Role Phone Arjun Zhou MD Unavailable [phone] Ryan Clemente MD Unavailable [phone] Ana Farias MD Unavailable [phone] Ana Farias MD Primary Care Provider + Ana Farias MD Primary Care Provider + Reason for Referral * MRI/CAT Scan - Closed Specialty Diagnoses / Procedures Referred By Linh kumar Referred To Contact Radiology Diagnoses Memory loss Procedures MRI Brain Renuka Guevara PA-C Phone: tel: fax: mailto: Referral ID Status Reason Start Date Expiration Date Visits Re quested Visits Authorized [id number] Closed 07/17/2018 07/17/2019 1 1 Encounter Details Date Type Department Care Team (Late st Contact Info) Description 07/17/2018 Ancillary Orders Virtual Department [address] [place] [address] Renuka Guevara PA-C [address] [place] [address] Memory loss Social History Tobacco Use Types Packs/Day Years Used Date Smoking Tobacco: Never Assessed Sex and Gender Information Value Date Recorded [...] 10:00 AM EDT Home Care Visit [facility] [address] [place] [phone] Codi Powell RN [address] [place] [address] 07/04/2025 3:00 AM EDT Home Care Visit [facility] [address] [place] [phone] Codi Powell RN [address] [place] [address] 07/11/2025 2:00 AM EDT Home Care Visit [facility] [address] [place] [phone] Codi Powell RN [address] [place] [address] 07/18/2025 3:30 AM EDT Home Care Visit [facility] [address] [place] [phone] Codi Powell RN [address] [place] [address] 07/25/2025 1:30 AM EDT Home Care Visit [facility] [address] [place] [phone] Codi Powell RN [address] [place] [address] 08/01/2025 1:30 AM EDT Home [facility] Visit [facility] [address] [place] [address] Codi Powell RN [address] [place] [address] 08/10/2025 12:30 AM EDT Appointment [facility] [address] [place], [place] [phone] Codi Powell RN [address] [place] [address] documented as of this encounter Results * MRI BRAIN WITHOUT CONTRAST (07/31/2018 3:14 PM EDT) Anatomical Region Laterality Modality Head Magnetic Resonan ce 07/31/2018 3:25 PM EDT Impressions 07/31/2018 3:45 PM EDT 1. No acute intracranial abnormality. 2. Moderate ventriculomegaly, very minimally increased from 2006. 3. Moderate amount of nonspecific white matter changes, progressed from MR study 2006. 4. Findings of generalized brain volume loss. POS - [id number] Narrative 07/31/2018 3:45 PM EDT EXAM: MRI BRAIN WITHOUT INTRAVENOUS CONTRAST COMPARISON: Head CT on April 19, 2016. Brain MRI on July 01, 2007. TECHNIQUE: Exam performed on a 1.5 Lucy high-field MRI scanner. Axial T1, T2, T2*, T2 FLAIR and diffusion-weighted imaging with ADC map, sagittal T1 sequences were obtained. FINDINGS: Ventricles, Sulci and extra axial spaces: The degree of moderate ventriculomegaly has very minimally increased from 2007 study. Generalized prominence of the brain sulci and extra axial spaces represents brain volume loss. Brain Parenchyma: No restricted diffusion, hemorrhage, mass or shift of midline structures seen. Moderate amount of scattered and confluent T2/FLAIR hyperintensity in the white matter of bilateral cerebral hemispheres has progressed from previous MR study in 2006. Vascular: The major intracranial flow voids appear intact. Skull Base: Sellar/parasellar structures, pineal gland region and craniovertebral junction are unremarkable. INTERNAL AUDITORY CANALS: No mass in the cerebellopontine angle cisterns or internal auditory canals. The course of the seven and eight cranial nerve complex has normal appearance on the FIESTA sequence. Orbits: The orbits are unremarkable noting prior bilateral lens implants. Paranasal sinuses: No significant inflammatory changes present in the paranasal sinuses or mastoid air cells. Bones and soft tissues: Grossly unremarkable. Procedure Note Teagan Chase MD - 07/31/2018 EXAM: MRI BRAIN WITHOUT INTRAVENOUS CONTRAST COMPARISON: Head CT on April 19, 2016. Brain MRI on July 01, 2007. TECHNIQUE: Exam performed on a 1.5 Lucy high-field MRI scanner. AxialT1, T2, T2*, T2 FLAIR and diffusion-weighted imaging with ADC map,sagittal T1 sequences were obtained. FINDINGS: Ventricles, Sulci and extra axial spaces: The degree of moderateventriculomegaly has very minimally increased from 2007 study. Generalizedprominence of the brain sulci and extra axial spaces represents brainvolume loss. Brain Parenchyma: No restricted diffusion, hemorrhage, mass or shift ofmidline structures seen. Moderate amount of scattered and confluentT2/FLAIR hyperintensity in the white matter of bilateral cerebralhemispheres has progressed from previous MR study in 2006. Vascular: The major intracranial flow voids appear intact. Skull Base: Sellar/parasellar structures, pineal gland region andcraniovertebral junction are unremarkable. INTERNAL AUDITORY CANALS: No mass in the cerebellopontine angle cisternsor internal auditory canals. The course of the seven and eight cranialnerve complex has normal appearance on the FIESTA sequence. Orbits: The orbits are unremarkable noting prior bilateral lens implants. Paranasal sinuses: No significant inflammatory changes present in theparanasal sinuses or mastoid air cells. Bones and soft tissues: Grossly unremarkable. IMPRESSION: 1. No acute intracranial abnormality. 2. Moderate ventriculomegaly, very minimally increased from 2006. 3. Moderate amount of nonspecific white matter changes, progressed fromMR study 2006. 4. Findings of generalized brain volume loss. POS - [id number] us Renuka Guevara PA-C IMG MR HEAD/NECK Final Resul t documented in this encounter Visit Diagnoses Diagnosis Memory loss Memory loss documented in this encounter Additional Health Concerns [...] documented as of this encounter Care Teams Oracle Fusion Middleware Developer Relationship Specialty Start Date End Date Ana Farias MD [address] [place] [address] [email or web address] PCP - General 10/23/17 01/27/19 Ana Farias MD [address] [place] [address] [email or web address] PCP - General Family Medicine 01/28/19 Arjun Zhou MD [address] [place] [address] Historical LMR Provider 08/10/17 Ryan Clemente MD [address] [place], [place] [address] [place] [address] [email or web address] Historical LMR Provider 08/10/17 10/27/21 Ana Farias MD [address] [place], [place] [address] [address] [email or web address] Historical LMR Provider 08/10/17 documented as of this encounter Additional Source Comments The information contained in this document represents components of the legal health record. It is not the complete legal health record.[facility]
--- OUTSIDE RECORDS SUMMARY | 2025-06-28 17:59 | XMS_ITS | Clinical Summary ---
Author Organization [facility] Address [address] [facility] [address] [place] [id number] Phone Care Team Providers Care Tool Checker Name Role Phone Ana Farias MD Unavailable Ana Farias MD Primary Care Provider + Allergies Active Allergy Reactions Criticality Noted Date Comments Adhesive High 04/29/2025 Has scabs all over skin from where adhesive has been placed in the past Medications hydroCHLOROthia zide (HYDRODIURIL) 25 MG tablet [The details of the medication are not available because there are pending changes by a home health clinician.] 90 tablet 7 Active Additional Information Patient not taking.Reason: on hold until 05/07 until Bactrim completed, Reported on 05/06/2025 lisinopril (PRINIVIL,ZESTR IL) 10 MG tablet 10 mg. TAKE 1 TABLET BY MOUTH EVERY DAY 4 Active acetaminophen (TYLENOL) 325 mg tablet Take 2 tablets (650 mg total) by mouth every 6 (six) hours as needed for mild pain or fever. 0 2 Active polyethylene glycol (MIRALAX) 17 gram packet [The details of the medication are not available because there are pending changes by a home health clinician.] 2 Active Additional Information Patient taking differently:17 g OralDaily as needed, Informant: Spouse/Significant Other, Reported on 04/29/2025 cholecalciferol , vitamin D3, 25 mcg (1,000 unit) chewable tablet Take 1,000 Units by mouth daily. 4 Active buPROPion (WELLBUTRIN XL) 150 MG ER 24 hr tablet Take 150 mg by mouth daily. on hold while taking antibiotic 5 Active senna (SENOKOT) 8.6 mg tablet Take 1 tablet by mouth nightly at bedtime. 5 Active Additional Information Patient not taking.Reported on 04/29/2025 aspirin 325 MG tablet Take 325 mg by mouth daily. 5 Active b complex vitamins tablet Take 1 tablet by mouth daily. 5 Active mupirocin (BACTROBAN) 2 % ointment Apply 1 Application topically 3 (three) times a day. 5 Active menthol-zinc oxide (CALMOSEPTINE) 0.44-20.6 % Oint Apply 1 Application topically daily as needed (painful escoriated tissue). 5 Active Active Problems Problem Noted Date Diagnosed Date Sepsis due to urinary tract infection 04/10/2025 Urinary tract infection asso ciated with indwelling urethral catheter, initial encounter 04/09/2025 Upper GI bleed 11/12/2024 Assessment & Plan (11/15/2024 5:29 PM EST): Likely upper GI bleed based on history. ? Anjali sousa tear ISO wretching. H&H dropped to below 8 and was given 1 unit of PRBC 11/14. Appropriate response and no ongoing bleeding/wretching so EGD deferred. -reg diet -cbc in am, if stable, like dc Assessment & Plan (11/14/2024 12:59 PM EST): Likely upper GI bleed based on history. H&H was reasonably stable over the last couple of days, some drop as expected particularly with hydration. There has been no emesis since 11/12, and he has not had any dark stools. He is tachycardia has resolved, BP is stable. His daughter Kamilla signed consent for blood. Now that his H/H has trended below 8, will give 1 unit of PRBC 11/14. DW Dr Perales, if the response to the blood is not as expected or there are signs fo furhter loss, upper endo Friday(he is NPO [place]) Twice daily PPI. Full liquids for now. Assessment & Plan (11/13/2024 2:20 PM EST): Likely upper GI bleed based on history. H&H was reasonably stable over the last couple of days, some drop as expected particularly with hydration. There has been no emesis since yesterday, and he has not had any dark stools. He is tachycardia has resolved, BP is stable. His daughter Kamilla signed consent for blood if we need it. from is following along and does not think that he will need endoscopy at this point. Twice daily PPI. Advancing diet. Transfuse at 8 or with signs/symptoms of further loss. Assessment & Plan (11/12/2024 2:24 PM EST): Likely upper GI bleed based on history. H&H is reasonably stable over the last couple of days, fortunately he has been having blood work, however he is also hemoconcentrated so I anticipate the H&H will drop some as we hydrate him. There has been no emesis since early this morning, and he has not had any dark stools. He is mildly tachycardic so we will monitor him on remote telemetry, family would prefer to be in a private room as they stay with him 12/05. His daughter Kamilla signed consent for blood if we need it. Dr. Smith from is following along and does not think that he will need endoscopy at this point. Twice daily PPI. Discitis of lumbar region 11/01/2024 Assessment & Plan (11/15/2024 5:29 PM EST): The patient is in the midst of 6 weeks of Rocephin for his lumbar infection. [facility] They initially switched to IM injections but Dr. Williamson appropriately insisted that they put a midline back in. That was placed 11/11 and I think we should go ahead and use it while he is here. NO signs of worsening infection, pain is controlled. Assessment & Plan (11/14/2024 12:59 PM EST): The patient is in the midst of 6 weeks of Rocephin for his lumbar infection. He pulled out to [facility]. They initially switched to IM injections but Dr. Williamson appropriately insisted that they put a midline back in. That was placed 11/11 and I think we should go ahead and use it while he is here. NO signs of worsening infection, pain is controlled. Assessment & Plan (11/13/2024 2:20 PM EST): The patient is in the midst of 6 weeks of Rocephin for his lumbar infection. He pulled [facility]. They initially switched to IM injections but Dr. Boyer once appropriately insisted that they put a midline back in. That was placed 11/11 and I think we should go ahead and use it while he is here. Assessment & Plan (11/12/2024 2:24 PM EST): The patient is in the midst of 6 weeks of Rocephin for his lumbar infection. He pulled [facility]. They initially switched to IM injections but Dr. Boyer once appropriately insisted that they put a midline back in. That was placed yesterday and I think we should go ahead and use it while he is here. Assessment & Plan (11/02/2024 5:02 PM EST): Patient has evidence of discitis, early osteo, early epidural phlegmon/abscess at L3-L4. Possibly early discitis at L2-L3 and the psoas phlegmon/early abscess in the left. Case discussed with neurosurgery and no neurosurgical intervention recommended based on size of phlegmon. Minimal benefit to tissue sampling as blood culture results likely reflects the infectious agent. He is neurologically intact. No evidence of cord compression. PICC line placed 11/02 -CBC tomorrow -Dispo likely to short-term rehab, case management and family looking into it -Pain management with oxycodone and tramadol Assessment & Plan (11/01/2024 3:38 PM EST): Patient has evidence of discitis, early osteo, early epidural phlegmon/abscess at L3-L4. Possibly early discitis at L2-L3 and the psoas phlegmon/early abscess in the left. Case discussed with radiology, ID and family today. Plan at this point is ongoing medical management. Paged neurosurg for them to take a look at the images but I doubt any intervention is indicated at this point. He is neurologically intact. No evidence of cord compression. -Plan as above -PICC ordered -CBC -BMP Bacteremia 10/29/2024 Assessment & Plan (04/12/2025 2:22 PM EDT): Vancomycin to continue Hx of osteomyelitis of L3-L4, completed 5 weeks of antibiotics in 2024. This could be an ongoing source of infection. ID consult due to bacteremia appreciated. TTE planned today to evaluate for evidence of endocarditis, final pending. Assessment & Plan (04/11/2025 3:01 PM EDT): Vancomycin to continue Hx of osteomyelitis of L3-L4, completed 5 weeks of antibiotics in 2024. This could be an ongoing source of infection. ID consult due to bacteremia. Assessment & Plan (04/10/2025 2:58 PM EDT): GPC in blood, chains and clusters. Vancomycin added. Cont Ceftx. Monitor WBC and CRP. Assessment & Plan (11/02/2024 5:02 PM EST): Last cultures negative Assessment & Plan (11/01/2024 3:38 PM EST): Last cultures negative Delirium 10/29/2024 Assessment & Plan (11/02/2024 5:02 PM EST): Improving Assessment & Plan (11/01/2024 3:38 PM EST): Improving Assessment & Plan (10/31/2024 5:56 PM EST): Assessment & Plan (10/30/2024 4:06 PM EST): Pneumonia 10/28/2024 Assessment & Plan (11/01/2024 3:38 PM EST): No clear symptoms of pneumonia at this point Assessment & Plan (10/31/2024 5:56 PM EST): As above Assessment & Plan (10/30/2024 4:06 PM EST): As above Taylor. His H&H have dropped some without any obvious focal blood loss. I suspect some of that is hemodilutional. Looking back at prior labs he runs slightly anemic most likely due to his chronic renal disease. Have ordered iron, B12, and folate for the morning. Repeat CBC to make sure that it is stable. Assessment & Plan (10/29/2024 12:13 PM EST): As above Taylor. His H&H have dropped some without any obvious focal blood loss. I suspect some of that is hemodilutional. Looking back at prior labs he runs slightly anemic most likely due to his chronic renal disease. Have ordered iron, B12, and folate for the morning. Repeat CBC to make sure that it is stable. Assessment & Plan (10/28/2024 3:02 PM EST): As above Sepsis secondary to UTI 06/02/2024 Assessment & Plan (04/12/2025 2:22 PM EDT): - Urinalysis revealed Positive nitrite, leukocyte Estrace +3, urine sediment with 0 epithelial cells showed numerous bacteria, RBCs and WBCs. Patient presented with fever of 100.4, WBC count of over 12, tachypnea with a respiratory rate of 35 and tachycardia. -Received 30 cc/kg of IVF hydration and antibiotics on presentation in the ED. - Lactate was negative, no hypotension on presentation to the ED -No evidence of endorgan damage. -CT abdomen pelvis revealed circumferential bladder wall thickening with surrounding inflammatory stranding, intraluminal gas, possible foci of intra mural gas likely reflecting cystitis, possible emphysematous cystitis. Plan: Expanded to vancomycin and cefepime, but now with staph and enterococcus, plan on monotherapy with vancomycin (re-expand to cefepime and vanc if febrile) Blood cultures show staph and enterococcus Urine culture with staph Crowley catheter exchanged in the ED with subsequent drainage of bloody urine Urology consultation for suprapubic catheter Monitor telemetry Assessment & Plan (04/11/2025 3:01 PM EDT): - Urinalysis revealed Positive nitrite, leukocyte Estrace +3, urine sediment with 0 epithelial cells showed numerous bacteria, RBCs and WBCs. Patient presented with fever of 100.4, WBC count of over 12, tachypnea with a respiratory rate of 35 and tachycardia. -Received 30 cc/kg of IVF hydration and antibiotics on presentation in the ED. - Lactate was negative, no hypotension on presentation to the ED -No evidence of endorgan damage. -CT abdomen pelvis revealed circumferential bladder wall thickening with surrounding inflammatory stranding, intraluminal gas, possible foci of intra mural gas likely reflecting cystitis, possible emphysematous cystitis. Plan: Expanded to vancomycin and cefepime, but now with staph and enterococcus, plan on monotherapy with vancomycin (re-expand to cefepime and vanc if febrile) Blood cultures show staph and enterococcus Urine culture with staph Crowley catheter exchanged in the ED with subsequent drainage of bloody urine Consider urology consultation for suprapubic catheter (may be done as outpatient) Monitor telemetry Assessment & Plan (04/10/2025 2:58 PM EDT): - Urinalysis revealed Positive nitrite, leukocyte Estrace +3, urine sediment with 0 epithelial cells showed numerous bacteria, RBCs and WBCs. Patient presented with fever of 100.4, WBC count of over 12, tachypnea with a respiratory rate of 35 and tachycardia. -Received 30 cc/kg of IVF hydration and antibiotics on presentation in the ED. - Lactate was negative, no hypotension on presentation to the ED -No evidence of endorgan damage. -CT abdomen pelvis revealed circumferential bladder wall thickening with surrounding inflammatory stranding, intraluminal gas, possible foci of intra mural gas likely reflecting cystitis, possible emphysematous cystitis. Plan: Continue ceftriaxone Blood cultures ordered and pending Follow-up urine cultures Crowley catheter exchanged in the ED with subsequent drainage of bloody urine Consider urology consultation Close clinical monitoring Monitor telemetry Continue gentle IVF hydration of LR 100 cc/hr 04/10 continue Ceftriaxone and Vanco; f/u CRP, WBC, consider urology consult. Assessment & Plan (04/10/2025 12:06 AM EDT): - Urinalysis revealed Positive nitrite, leukocyte Estrace +3, urine sediment with 0 epithelial cells showed numerous bacteria, RBCs and WBCs. Patient presented with fever of 100.4, WBC count of over 12, tachypnea with a respiratory rate of 35 and tachycardia. -Received 30 cc/kg of IVF hydration and antibiotics on presentation in the ED. - Lactate was negative, no hypotension on presentation to the ED -No evidence of endorgan damage. -CT abdomen pelvis revealed circumferential bladder wall thickening with surrounding inflammatory stranding, intraluminal gas, possible foci of intra mural gas likely reflecting cystitis, possible emphysematous cystitis. Plan: Continue ceftriaxone Blood cultures ordered and pending Follow-up urine cultures Crowley catheter exchanged in the ED with subsequent drainage of bloody urine Consider urology consultation Close clinical monitoring Monitor telemetry Continue gentle IVF hydration of LR 100 cc/hr Assessment & Plan (11/02/2024 5:02 PM EST): Now resolved and due to discitis/early epidural abscess and bacteremia. Initially met criteria for sepsis based on his fever, heart rate, respiratory rate, and white blood cell count. Initially being treated for pneumonia however blood cultures positive, 10/23 for strep dysgalactiae. Seen by infectious disease on 10/30, antibiotics de-escalated to penicillin based on culture results. MRI shows discitis at L3-L4 with signs of possible early osteo. Minimal fluid suggesting epidural phlegmon/early epidural abscess. 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 Moderate narrowing of the dural sac. -Paged neurosurgery at [facility] to discuss but given the size of phlegmon/early epidural abscess likely medical management only -Continue antibiotics as per ID, 2 g ceftriaxone on day of discharge followed by 2 g ceftriaxone as an outpatient for the duration of his treatment (12/11/2024) and outpatient ID follow-up. Assessment & Plan (11/01/2024 3:38 PM EST): Now resolved and due to discitis/early epidural abscess and bacteremia. Initially met criteria for sepsis based on his fever, heart rate, respiratory rate, and white blood cell count. Initially being treated for pneumonia however blood cultures positive, 10/23 for strep dysgalactiae. Seen by infectious disease on 10/30, antibiotics de-escalated to penicillin based on culture results. MRI shows discitis at L3-L4 with signs of possible early osteo. Minimal fluid suggesting epidural phlegmon/early epidural abscess. 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 Moderate narrowing of the dural sac. -Paged neurosurgery at [facility] to discuss but given the size of phlegmon/early epidural abscess likely medical management only -Continue antibiotics as per ID Assessment & Plan (10/31/2024 5:56 PM EST): - Initially met criteria for sepsis based on his fever, heart rate, respiratory rate, and white blood cell count. - initially treated with vancomycin and piptazo - most likely source would be pneumonia - f/u CXR did not show clear infiltrate, ? RUL opacity may be atelectasis, initially ? Subtle LLL opacity, also may be atelectasis - also some buttocks erythema, cellulitis considered - / blood culture bottles with strep dysgalactiae - could be true infection - has a repeat blood culture from 10/30, 10/31 - ID following - 10/30 de-escalated abx from zosyn to penicillin - ECHO pending - MRI lumbar and sacral spine pending - fevers seem improved - significant leukocytosis has improved Assessment & Plan (10/30/2024 4:06 PM EST): - Initially met criteria for sepsis based on his fever, heart rate, respiratory rate, and white blood cell count. - initially treated with vancomycin and piptazo - most likely source would be pneumonia - f/u CXR did not show clear infiltrate, ? RUL opacity may be atelectasis, initially ? Subtle LLL opacity, also may be atelectasis - also some buttocks erythema, cellulitis considered - 1/4 blood culture bottles with strep dysgalactiae - could be true infection - has a repeat blood culture from 10/30 - ID following - cont pip/tazo may be able to de-escalate abx to ampicillin - defer to ID - may need TTE - now monitoring off IVF (s/p hydration) - fevers seem improved - significant leukocytosis has improved Assessment & Plan (10/29/2024 12:13 PM EST): Tristan met criteria for sepsis based on his fever, heart rate, respiratory rate, and white blood cell count. He has been hemodynamically stable without any signs of septic shock. He was appropriately started on broad-spectrum antibiotics in the ER, namely Zosyn and vancomycin. Remained stable on this regimen and pharmacy is following the vancomycin dosing. He is borderline between chronic kidney disease stage IIIb/4. Currently the most likely source would be pneumonia based on the reading of the chest x-ray which is showing possible pneumonia, follow-up chest x-ray after hydration is being obtained. Urinalysis looks unremarkable. He has some erythema of the skin posteriorly, to be acute cellulitis.. . Apparently he is incontinent at home and wears diapers and so is at risk for some skin breakdown. 1 aerobic blood culture is growing gram-positive cocci in chains. This should be adequately covered by the regimen that we are using. Surveillance culture has been ordered for tomorrow morning after 24 hours of antibiotics. Further workup depending on the remainder of the culture results. Assessment & Plan (10/28/2024 3:02 PM EST): Tristan meets criteria for sepsis based on his fever, heart rate, respiratory rate, and white blood cell count. He has been hemodynamically stable without any signs of septic shock. He was appropriately started on broad-spectrum antibiotics in the ER namely Zosyn and vancomycin. We will need to be careful with these 2 medications given his borderline chronic kidney disease stage IIIb/4. Currently the most likely source would be pneumonia based on the reading of the chest x-ray which is showing possible pneumonia, though according to his daughter he has not been having any coughing. He did tell nursing earlier today that he was coughing a lot but we have not seen any here. Urinalysis looks unremarkable. He has some erythema of the skin posteriorly that I have not been able to evaluate in the ER because the bed is too narrow to roll him on. When he gets to the floor we will have to get pictures. Apparently he is incontinent at home and wears diapers and so is at risk for some skin breakdown. I am not going to push 30 cc/kg on him but just hydrate him gently with his hemodynamics. Assessment & Plan (06/02/2024 2:45 PM EDT): He presented with with fever, leukocytosis, tachypnea, tachycardia and elevated lactate in the setting of abrupt onset altered mental status. He was started on Zosyn the time of admission and per his family, an hour later his mental status had returned to normal. His last temperature at 3 AM on 06/02. Exam is reassuring aside from cough. MRSA nasal swab negative Hx of being around sick grandchildren this weekend. Suspect viral pneumonia but will continue coverage for bacterial pneumonia with zosyn (discontinued with negative MRSA nasal swab). Does have a hx of aspiration in the setting of prior SBO. CT chest showed septal thickening with groundglass opacities central airways are patent but mild diffuse bronchial wall thickening and distal mucous plugging noted. Negative Covid/flu -Follow-up blood cultures, urine legionella/strep, viral respiratory pathogen panel pending. -DC IV fluid Cough 06/02/2024 Assessment & Plan (06/02/2024 2:17 AM EDT): Lungs clear but persistent cough. CXR reassuring. Chest CT pending. Suspect viral vs aspiration pneumonia. Abx as above. Scheduled and prn nebs. Fever and chills 06/02/2024 Assessment & Plan (06/02/2024 2:47 PM EDT): Etiology unclear. Currently on Zosyn fever appears to have resolved. No tick exposures. No dysuria. Chronic cough. May be viral in nature due to exposure to sick grandkids. -Continue Zosyn and follow-up cultures Metabolic encephalopathy 06/02/2024 Assessment & Plan (06/02/2024 2:45 PM EDT): Due to acute infectious presentation, source unclear at this time. Delirium has now resolved and he is back to his baseline. -Continue to monitor -Regular diet if he can pass his bedside swallow Partial small bowel obstruction 10/25/2023 Assessment & Plan (10/30/2023 5:10 PM EST): -CT abd pelvis revealed: Dilated proximal small bowel loops measuring up to 4.6 cm in diameter, with gradual transition to nondistended distal ileum small bowel loops no evidence of abrupt transition zone, similar to January 2022, likely representing partial small bowel obstruction. -Patient presented with abdominal pain and distention along with nausea and vomiting which was new for him, no prior abdominal surgeries. 10/28-no nausea and vomiting. Has had BM and passage of flatus. Exam reveals abdomen to be nontender with active bowel sounds. -Case discussed with Dr. Rizo and will advance diet as tolerated- soft solids low fiber diet. Tolerating well -Discontinue IV fluids. -Follow clinical exam. Increase miralax, add a suppository Xray shows persistent dilated bowel loops, but improved Hasn't had a BM since Friday Aspiration pneumonia of both lower lobes due to vomit 10/25/2023 Assessment & Plan (10/28/2023 4:36 PM EST): Choking event 5 days prior to admission presented with nausea and vomiting. -CT chest revealed multifocal ill-defined peribronchial groundglass opacities in both lungs most likely present multifocal pneumonia, possibly aspiration also remains in differential in appropriate clinical settings. -Had no prior history of aspiration as well, according to patient did choke on a pickle approximately 4 days prior. -Family noted that patient had cough when laying flat. -By [employer]-demonstrates normal swallow. Diet texture advanced to regular texture with aspiration precautions. Signed off. -Has received 3 days of IV ceftriaxone for aspiration pneumonia. -Remains afebrile with no hypoxemia. Pneumonia resolving. Plan - Transition to oral cefpodoxime for 4 days to complete a 7-day course of treatment. - Continue aspiration precautions Stage 3b chronic kidney disease (CKD) 10/25/2023 Assessment & Plan (04/12/2025 8:52 AM EDT): - Renal function appears to be at baseline -Given presentation of suspected sepsis. Strict I's and O's and daily weights Hold HCTZ and lisinopril at this time pending clinical improvement from infection Assessment & Plan (04/11/2025 3:01 PM EDT): - Renal function appears to be at baseline -Given presentation of suspected sepsis. Strict I's and O's and daily weights Hold HCTZ and lisinopril at this time pending clinical improvement from infection Assessment & Plan (04/10/2025 2:58 PM EDT): - Renal function appears to be at baseline -Given presentation of suspected sepsis. Repeat labs in the a.m. Strict I's and O's and daily weights Hold HCTZ and lisinopril at this time pending clinical improvement from infection 04/10 continue care plan. Assessment & Plan (04/09/2025 10:57 PM EDT): - Renal function appears to be at baseline -Given presentation of suspected sepsis. Repeat labs in the a.m. Strict I's and O's and daily weights Hold HCTZ and lisinopril at this time pending clinical improvement from infection Assessment & Plan (06/02/2024 2:16 AM EDT): Renal function at baseline. Continue gentle hydration and monitor urine output closely Assessment & Plan (10/28/2023 4:37 PM EST): -Renal function appears to be at baseline, serum creatinine around 2.20. Patient does follow with nephrology as an outpatient. -Creatinine is at baseline at 1.5 - Monitor throughout hospital stay intermittently. - Avoid nephrotoxic medications. Generalized weakness 02/01/2022 Assessment & Plan (02/03/2022 9:36 AM EDT): History of falls and fall prior to arrival. Acute medical illness treated as above, home with PT, weakness has improved Hypertension 07/19/2019 Assessment & Plan (04/12/2025 8:52 AM EDT): Hold HCTZ and lisinopril at this time pending clinical improvement. Assessment & Plan (04/11/2025 3:01 PM EDT): Hold HCTZ and lisinopril at this time pending clinical improvement. Assessment & Plan (04/10/2025 2:58 PM EDT): Hold HCTZ and lisinopril at this time pending clinical improvement. 04/10 continue care plan. Assessment & Plan (04/10/2025 12:06 AM EDT): Hold HCTZ and lisinopril at this time pending clinical improvement. Assessment & Plan (11/15/2024 5:29 PM EST): ALEM stable off of his rx. Hold his hydrochlorothiazide and lisinopril for now, Assessment & Plan (11/14/2024 12:59 PM EST): Hold his hydrochlorothiazide and lisinopril for now, BP is decent Assessment & Plan (11/13/2024 2:20 PM EST): Hold his hydrochlorothiazide and lisinopril for today. Assessment & Plan (11/12/2024 2:24 PM EST): Hold his hydrochlorothiazide and lisinopril for today. Assessment & Plan (10/28/2024 2:54 PM EST): He is on lisinopril 10 mg and HCTZ 25 mg at home. These will be held with the acute kidney injury. Assuming that this moves towards baseline in the morning we can restart the lisinopril and then the hydrochlorothiazide when appropriate. May be we would consider calcium channel luis felipe as well. Assessment & Plan (10/26/2023 2:08 PM EST): BP stable well controlled - Home medications restarted, HCTZ 25mg daily, amlodipine 5 mg daily, Lisinopril 20 mg oral daily. Assessment & Plan (02/03/2022 9:30 AM EDT): Lisinopril and HCTZ were held, can restart at discharge time Dementia Assessment & Plan (04/29/2025 9:16 AM EDT): Tristan has a history of Lewy body dementia. He is pleasant and follows commands well. He is repetitive in his answers and not oriented to place or time. His is his healthcare proxy which is activated. Assessment & Plan (11/12/2024 2:15 PM EST): Tristan is certainly more like I saw him with admission a couple of weeks ago he seems very fatigued and quiet. He is pleasant and smiles but is not really participating in conversations right now. When he is feeling better he is much more verbose and happy. Will continue to monitor. According to his daughter he was really doing quite well at rehab until this setback. His pain had been decreasing and oxycodone was changed to tramadol. There had been some discussion about putting him on fentanyl but that never needed to happen. His mobility was increasing. Assessment & Plan (11/02/2024 5:02 PM EST): Lewy body dementia. He walks with a very slow shuffling gait. - recent falls, fell over walker and then day of admission, slid out of bed without known injury. PT and OT For recent fall and back pain obtained thoracic and lumbar xray no fractures seen Assessment & Plan (11/01/2024 3:38 PM EST): Lewy body dementia. He walks with a very slow shuffling gait. - recent falls, fell over walker and then day of admission, slid out of bed without known injury. PT and OT For recent fall and back pain obtained thoracic and lumbar xray no fractures seen Assessment & Plan (10/31/2024 5:56 PM EST): Lewy body dementia. He walks with a very slow shuffling gait. - recent falls, fell over walker and then day of admission, slid out of bed without known injury. PT and OT For recent fall and back pain obtained thoracic and lumbar xray no fractures seen Assessment & Plan (10/30/2024 4:06 PM EST): Lewy body dementia. He walks with a very slow shuffling gait. - recent falls, fell over walker and then day of admission, slid out of bed without known injury. PT and OT For recent fall and back pain obtained thoracic and lumbar xray no fractures seen Assessment & Plan (10/29/2024 12:13 PM EST): Jeni relates that he has Lewy body dementia. At this point per her report his physical status is significantly worse than his cognitive issues. He fell a couple of days ago at home essentially just tipping over with a walker. He walks with a very slow shuffling gait. This morning he slid out of bed without known injury. PT and OT evaluate him at this time. Assessment & Plan (10/28/2024 3:02 PM EST): Jeni relates that he has Lewy body dementia. At this point per her report his physical status is significantly worse than his cognitive issues. He fell a couple of days ago at home essentially just tipping over with a walker. He walks with a very slow shuffling gait. This morning he slid out of bed without known injury. PT and OT when appropriate. Assessment & Plan (06/02/2024 2:16 AM EDT): Alert and oriented to person and place. At baseline able to perform ADLs with wifes help. -Fall risk. Bed alarm on Assessment & Plan (02/02/2022 8:57 AM EDT): This appears to be very mild History of BPH Assessment & Plan (02/03/2022 9:30 AM EDT): Continue finasteride Flomax added. Patient required Crowley catheter inpatient and will need to follow-up with urologist this week for voiding trial per her note Monitor for dizziness and lightheadedness with Flomax Nausea and vomiting Assessment & Plan (11/15/2024 5:29 PM EST): The patient was exposed to his who had norovirus last weekend and according to Dr. Williamson's note, he had spoken to Dr. Balbuena and [facility] This is probably what started the nausea and vomiting. Supportive care for now. Fortunately this has resolved. Assessment & Plan (11/14/2024 12:59 PM EST): The patient was exposed to his who had norovirus last weekend and according to Dr. Williamson's note, he had spoken to Dr. Balbuena and there is an outbreak at [facility]. This is probably what started the nausea and vomiting. Supportive care for now. Fortunately this has resolved. Assessment & Plan (11/13/2024 2:20 PM EST): The patient was exposed to his who had norovirus last weekend and according to Dr. Jay its his note, he had spoken to Dr. Balbuena and there is an outbreak at [facility]. This is probably what started the nausea and vomiting. Supportive care for now. Antiemetics as needed. IV Hydration, will end inabout 1 hour. Taking po. Assessment & Plan (11/12/2024 2:24 PM EST): The patient was exposed to his who had norovirus last weekend and according to Dr. Jay its his note, he had spoken to Dr. Balbuena and there is an outbreak at [facility]. This is probably what started the nausea and vomiting. Supportive care for now. Antiemetics as needed. IV Hydration. I will keep him n.p.o. except for sips of water and ice chips until we are sure the vomiting has stopped and endoscopy is not required. Assessment & Plan (02/03/2022 9:35 AM EDT): Resolved. Tolerating solid foods, having bowel movements no symptoms of nausea or vomiting. Continue home bowel regimen Resolved Problems Problem Noted Date Diagnosed Date Resolved Date Severe sepsis 04/29/2025 05/03/2025 Assessment & Plan (05/02/2025 9:43 AM EDT): Tristan met criteria for severe sepsis. He was appropriately fluid resuscitated in the ER with 30 cc/kg. He is hemodynamically stable with improved vital signs since then. His lactic acid level was trending down after this. Chest x-ray was unremarkable and his CT scan shows findings consistent with likely cystitis. The source of the sepsis is very likely urinary. He was treated for a CAUTI at the end of March with MRSA and enterococcal bacteremia after instrumentation. Completed a course of linezolid just on Friday. Blood cultures are negative. UC, Klebsiella. Transition to Keflex last night but with improving renal function and data suggestive that Bactrim is better spoke to ID and we will switch him to Bactrim to complete a course on the . There are no other CT scan or obvious exam findings of concern. He is not a candidate for Pyridium or methenamine with his renal function. I scheduled acetaminophen and added some scheduled low-dose gabapentin to see if it helps him. If he is really uncomfortable, being given 2.5 mg of oxycodone but I like to avoid that if possible as we do not want to make him confused. I do not think his pain is that severe. He does seem improved today. I do not think that he will require gabapentin in the long-term Assessment & Plan (05/01/2025 10:17 AM EDT): Tristan met criteria for severe sepsis. He was appropriately fluid resuscitated in the ER with 30 cc/kg. He is hemodynamically stable with improved vital signs since then. His lactic acid level was trending down after this. Chest x-ray was unremarkable and his CT scan shows findings consistent with likely cystitis. The source of the sepsis is very likely urinary. He was treated for a CAUTI at the end of March with MRSA and enterococcal bacteremia after instrumentation. Completed a course of linezolid just on Friday. Blood cultures are reassuring at this time. Awaiting the identification of the gram-negative elvie to tailor therapy. I do believe his lower abdominal discomfort is secondary to his recent bladder tube placement as well as acute cystitis which seems significant on the CT scan. There are no other CT scan or obvious exam findings of concern. He is not a candidate for Pyridium or methenamine with his renal function. I will schedule acetaminophen and add some scheduled low-dose gabapentin to see if it helps him. If he is really uncomfortable being given 2.5 mg of oxycodone but I like to avoid that if possible as we do not want to make him confused. I do not think his pain is that severe. Assessment & Plan (04/30/2025 8:49 AM EDT): Tristan met criteria for severe sepsis. He was appropriately fluid resuscitated in the ER with 30 cc/kg. He is hemodynamically stable with improved vital signs since then. His lactic acid level was trending down after this. Chest x-ray was unremarkable and his CT scan shows findings consistent with likely cystitis. The source of the sepsis is very likely urinary. He was treated for a CAUTI at the end of March with MRSA and enterococcal bacteremia after instrumentation. Completed a course of linezolid just on Friday. On the same day he had his Crowley catheter removed and his suprapubic catheter was hooked up at the urology office. According to his he did not receive antibiotics prior to or during the procedure. Case was discussed with Dr. Boyer once. This is most likely UTI. Still considering the possibility of recurrent enterococcal bacteremia. Vancomycin for now with Zosyn pending cultures. Assessment & Plan (04/29/2025 9:24 AM EDT): Tristan meets criteria for severe sepsis. He was appropriately fluid resuscitated in the ER with 30 cc/kg. He is hemodynamically stable with improved vital signs since then. His lactic acid level was trending down after this. Chest x-ray was unremarkable and his CT scan shows findings consistent with likely cystitis. The source of the sepsis is very likely urinary. He was treated for a CAUTI at the end of March with MRSA and enterococcal bacteremia after instrumentation. Completed a course of linezolid just on Friday. On the same day he had his Crowley catheter removed and his suprapubic catheter was hooked up at the urology office. According to his he did not receive antibiotics prior to or during the procedure. For now I will continue with Rocephin and vancomycin as ordered in the emergency room. Suspect that this will be similar bacterial involvement from last admission. I have discussed case with Dr. Fish from [facility] who will see the patient given his complex history. Anemia 10/31/2024 05/03/2025 Assessment & Plan (05/02/2025 9:43 AM EDT): His hemoglobin and hematocrit are lower than a couple of weeks ago. He is chronically anemic. No obvious signs of blood loss at this time. He had B12 folate, and iron panel checked last admission which were consistent with anemia of chronic disease. After hydration as one would anticipate, the hemoglobin is down further, likely a component of acute illness as well. No significant evidence of hemolysis or acute blood loss. FIT testing has been ordered. We will transfuse 1 unit of packed red blood cells prior to discharge, awaiting an appropriate unit as he has an antibody to antigen M. Dementia: Tristan has a history of Lewy body dementia. He is pleasant and follows commands well. He is repetitive is not in his answers and not oriented to place or time. His is his healthcare proxy which is activated. His daughter is considering getting a lifeline for them as they are both at risk of fall and certainly a scenario could arise where 1 falls helping the other 1 who is down on the ground. I certainly think they would benefit from having access to that. Added a bowel regimen. With his hemoglobin improving he is a candidate to get up and work with PT and OT to help assist with plans for home. Assessment & Plan (05/01/2025 10:17 AM EDT): His hemoglobin and hematocrit are lower than a couple of weeks ago. He is chronically anemic. No obvious signs of blood loss at this time. He had B12 folate, and iron panel checked last admission which were consistent with anemia of chronic disease. After hydration as one would anticipate, the hemoglobin is down further, likely a component of acute illness as well. No significant evidence of hemolysis or acute blood loss. FIT testing has been ordered. Transfuse and follow. Dementia: Tristan has a history of Lewy body dementia. He is pleasant and follows commands well. He is repetitive is not in his answers and not oriented to place or time. His is his healthcare proxy which is activated. Assessment & Plan (04/30/2025 8:49 AM EDT): His hemoglobin and hematocrit are lower than a couple of weeks ago. He is chronically anemic. No obvious signs of blood loss at this time. He had B12 folate, and iron panel checked last admission which were consistent with anemia of chronic disease. After hydration as 1 would anticipate the hemoglobin is down further. At this point he should be transfused. Will look for alternative causes with a fit test, and labs for hemolysis though this seems unlikely. His LFTs on admission did not show an elevated bilirubin and his LDH currently is normal. We cannot get a haptoglobin over the weekend as it is a send out but we will send it tomorrow. FIT testing has been ordered. Transfuse and follow. Dementia: Tristan has a history of Lewy body dementia. He is pleasant and follows commands well. He is repetitive is not in his answers and not oriented to place or time. His is his healthcare proxy which is activated. Assessment & Plan (04/29/2025 9:24 AM EDT): His hemoglobin and hematocrit are slightly lower than a couple of weeks ago. He is chronically anemic. No obvious signs of blood loss at this time. He had B12 folate, and iron panel checked last admission which 0.2 and anemia of chronic disease. Will see where his blood count is tomorrow after all that IV fluid and decide on further management at that time. Dementia: Tristan has a history of Lewy body dementia. He is pleasant and follows commands well. He is repetitive is not in his answers and not oriented to place or time. His is his healthcare proxy which is activated. Assessment & Plan (11/02/2024 5:02 PM EST): - initial decrease likely dilutional, seems stable currently - iron deficiency and anemia of chronic disease - folate and b12 are not low Assessment & Plan (11/01/2024 3:38 PM EST): - initial decrease likely dilutional, seems stable currently - iron deficiency and anemia of chronic disease - folate and b12 are not low Assessment & Plan (10/31/2024 5:56 PM EST): - initial decrease likely dilutional, seems stable currently - iron deficiency and anemia of chronic disease - folate and b12 are not low WILLIS (acute kidney injury) 02/01/2022 Assessment & Plan (05/02/2025 9:43 AM EDT): He does have a mild WILLIS. This is very likely secondary to the sepsis. I suspect with the fluid hydration and holding his lisinopril and hydrochlorothiazide he has improved. He is eating and drinking very well I do not think we need to add any IV fluids at this time. His blood pressure is tolerating being off the medications at this time Assessment & Plan (05/01/2025 10:17 AM EDT): He does have a mild WILLIS. This is very likely secondary to the sepsis. I suspect with the fluid hydration and holding his lisinopril and hydrochlorothiazide that this will improve. He is eating and drinking very well I do not think we need to add any IV fluids at this time. His blood pressure is tolerating being off the medications at this time Assessment & Plan (04/30/2025 8:49 AM EDT): He does have a mild WILLIS right now. This is very likely secondary to the sepsis. I suspect with the fluid hydration and holding his lisinopril and hydrochlorothiazide that this will improve. He is eating and drinking very well I do not think we need to add any IV fluids at this time. Assessment & Plan (04/29/2025 9:24 AM EDT): He does have a mild WILLIS right now. This is very likely secondary to the sepsis. I suspect with the fluid hydration and holding his lisinopril and hydrochlorothiazide that this will improve. Assessment & Plan (11/15/2024 5:29 PM EST): His BUN and creatinine are up some from when he was here 2 weeks ago. He did receive 2 L of IV fluid at the [facility] prior to admit with slight improvement in the creatinine. The BUN may be partially due to the upper GI loss. Improved with IVF, now at his 1/3 baseline. Assessment & Plan (11/14/2024 12:59 PM EST): His BUN and creatinine are up some from when he was here 2 weeks ago. He did receive 2 L of IV fluid at the [facility] prior to admit with slight improvement in the creatinine. The BUN may be partially due to the upper GI loss. Improved with IVF, now at his 1/3 baseline. Assessment & Plan (11/13/2024 2:20 PM EST): His BUN and creatinine are up some from when he was here 2 weeks ago. He did receive 2 L of IV fluid at the [facility] prior to admit with slight improvement in the creatinine. The BUN may be partially due to the upper GI loss. Improved with IVF. Assessment & Plan (11/12/2024 2:24 PM EST): His BUN and creatinine are up some from when he was here 2 weeks ago. He did receive 2 L of IV fluid at the [facility] yesterday with slight improvement in the creatinine. The BUN may be partially due to the upper GI loss. Continue to monitor. Assessment & Plan (11/02/2024 5:02 PM EST): - most recent baseline creatinine 2.2- he is essentially at baseline, 1.8 - for now continue catheter (A Crowley catheter was placed in the ER for retention of 600 cc. 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 A small catheter had to be used due to reported small urethra per family) - cont finasteride Assessment & Plan (10/30/2024 4:06 PM EST): - most recent baseline creatinine 2.2- he is essentially at baseline - for now continue catheter (A Crowley catheter was placed in the ER for retention of 600 cc. 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 He is on the slightly lower side of that at this time. A Crowley catheter was placed in the ER for retention of 600 cc. A small catheter had to be used due to reported small urethra per family. The urinalysis itself is reassuring. Crowley catheter for now. He is on Proscar for this but not an alpha-luis felipe and I am not certain if that is due to fall risk. Assessment & Plan (10/28/2024 3:02 PM EST): Looking back to November 2023 his GFR floats in the high 20s and low 30s. He is on the slightly lower side of that at this time. A Crowley catheter was placed in the ER for retention of 600 cc. A small catheter had to be used due to reported small urethra per family. The urinalysis itself is reassuring. Crowley catheter for now. He is on Proscar for this but not an alpha-luis felipe and I am not certain if that is due to fall risk. Assessment & Plan (02/03/2022 9:36 AM EDT): Resolved Continue Crowley for now with voiding trial and urology office in 1 week, restart lisinopril and HCTZ follow-up with PCP Encounters Date Type Department Care Team Description 06/23/2025 Episode Documentation Update [facility] [address] [place] [phone] Tiff Pelletier 06/22/2025 10:30 AM EDT Home Care Visit [facility] [address] [place] [phone] Matthieu Brown LPN HOME VISIT 06/14/2025 11:30 AM EDT Home Care Visit [facility] [address], [place] [phone] Symone Pelaez, PT PT DISCIPLINE DISCHARGE VISIT 06/14/2025 9:00 AM EDT Home Care Visit [facility] [address] [place] [address] Iraida Espinoza, RN SN OASIS RECERTIFICATION/FUP 06/14/2025 Plan of Care Documentation [facility] [address], [place] [phone] 06/09/2025 9:00 AM EDT Home Care Visit [facility] [address] [place] [address] Adriana Wilsno RN SN HOME VISIT 06/07/2025 11:00 AM EDT Home Care Visit [facility] [address] [place] [address] Symone Pelaez, PT PT HOME VISIT 06/01/2025 11:30 AM EDT Home Care Visit [facility] [address] [place] [address] Cande Deras, RN SN HOME VISIT 06/01/2025 10:30 AM EDT Home Care Visit [facility] [address] [place] [address] Symone Pelaez, PT PT TFA VISIT 05/30/2025 10:30 AM EDT Home Care Visit [facility] [address] [place] [address] Symone Pelaez, PT PT HOME VISIT 05/26/2025 1:00 PM EDT Home Care Visit [facility] [address] [place] [address] Symone Pelaez, PT PT HOME VISIT 05/24/2025 1:30 PM EDT Home Care Visit [facility] [address], [place] [phone] Codi Powell, RN SN HOME VISIT 05/23/2025 10:30 AM EDT Home Care Visit [facility] [address], [place] [phone] Symone Pelaez, PT PT HOME VISIT 05/20/2025 Home Care Visit [facility] [address], [place] [phone] Codi Powell, RN CASE COMMUNICATION 05/19/2025 Home Care Visit [facility] [address], [place] [phone] Lucinda Spence, RN CASE COMMUNICATION 05/17/2025 10:00 AM EDT Home Care Visit [facility] [address] [place] [address] Codi Powell, RN SN HOME VISIT 05/16/2025 10:30 AM EDT Home Care Visit [facility] [address], [place] [phone] ySmone Pelaez, PT PT HOME VISIT 05/13/2025 10:00 AM EDT Home Care Visit [facility] [address], [place] [phone] Codi Powell, RN SN HOME VISIT 05/11/2025 5:15 AM EDT Home Care Visit [facility] [address] [place] [phone] Matthieu Brown LPN HOME VISIT 05/10/2025 10:30 AM EDT Home Care Visit [facility] [address], [place] [phone] Symone Pelaez, PT PT HOME VISIT 05/06/2025 3:06 PM EDT - 05/06/2025 11:59 PM EDT Hospital Encounter [address] [place] [address] Ana Farias MD Discharge Disposition: Home or Self Care 05/06/2025 2:00 PM EDT Home Care Visit [facility] [address] [place] [phone] Symone Pelaez, PT PT EVALUATION 05/06/2025 2:00 PM EDT Home Care Visit [facility] [address] [place] [phone] Aletha Harmon RN SN HOME VISIT 05/06/2025 Transcribe Orders [facility] [address] [place] [address] [place] [address] Ana Farias MD Sepsis, due to unspecified organism, unspecified whether acute organ dysfunction present (Primary Dx) 05/05/2025 1:30 PM EDT Home Care Visit [facility] [address] [place] [phone] Symone Pelaez, PT CASE COMMUNICATION 05/04/2025 1:00 PM EDT Home Care Visit [facility] [address] [place] [phone] Awais Caceres RN SN OASIS RESUMPTION OF CARE (BHAVESH) 05/03/2025 Home Health Resumption of Care Planning [facility] [address] [place] [address] Kady Nath, YAMILE 05/01/2025 Home Care Visit [facility] [address] [place] [address] Codi Powell RN SN OASIS TRANSFER 04/29/2025 12:52 AM EDT - 05/03/2025 1:25 PM EDT Hospital Encounter [facility] [address] [address] Caleb Enriquez DO Andrade, Olyn Amanda, MD Ewall, Katharine E, MD Miskovsky, Glenn E, MD Discharge Disposition: [place] [facility] Procedure Pass [facility], [facility] Scan - Main [address] [address] 04/26/2025 11:45 AM EDT [facility] [address] [place] [phone] Cari Harrington, PT PT EVALUATION 04/26/2025 7:00 AM EDT [facility] [address] [place] [address] Ember Franklin, YAMILE SN HOME VISIT 04/21/2025 9:30 AM EDT [facility] [address] [place] [address] Codi Powell, YAMILE SN HOME VISIT 04/20/2025 [facility] [address] [place] [address] Emily Cui, PT TELEPHONE ENCOUNTER 04/19/2025 9:30 AM EDT [facility] [address] [place] [address] Codi Powell, YAMILE SN HOME VISIT 04/18/2025 11:30 AM EDT [facility] [address] [place] [address] Codi Powell, RN MISSED VISIT 04/18/2025 Home Care Visit [facility] [address] [place] [address] Iraida Michel, RN TELEPHONE ENCOUNTER 04/16/2025 4:00 AM EDT [facility] [address] [place] [address] Iraida Michel, RN SN OASIS START OF CARE (SOC) 04/16/2025 Plan of Care Documentation [facility] [address] [place] [phone] 04/14/2025 12:30 PM EDT Home Care Visit [facility] [address] [place] [address] Codi Powell, YAMILE CARE CONFERENCE 04/13/2025 3:07 PM EDT Anesthesia Event OR Admitting Dept - Virtual Department [address] [place] [phone] Mary Del Real MD Noviello, John Richard, CRNA 04/13/2025 2:40 PM EDT - 04/13/2025 4:09 PM EDT Surgery OR Admitting Dept - Virtual Department [address] [place] [phone] Pola Odonnell MD PLACEMENT SUPRAPUBIC TUBE 04/13/2025 Procedure Pass OR Admitting Dept - Virtual Department [address] [place] [phone] 04/12/2025 Home Care Visit [facility] [address] [place] [address] Symone Magallon NON OASIS DISCHARGE NON VISIT/TELEPHONE 04/11/2025 Procedure Pass [facility] [address] [place] [phone] 04/11/2025 Orders Only [facility] [address] [place] [address] Homehealth, Susy Melton MD 04/11/2025 Home Care Visit [facility] [address] [place] [address] Codi Powell, YAMILE SN OASIS TRANSFER 04/09/2025 4:10 PM EDT - 04/14/2025 1:47 PM EDT Hospital Encounter [facility] [address] [place] [phone] Nima Can MD, MPH, JACOB Esdras Arora DO Percy, Thomas Britton, MD Arepally, Sandeep, MD Altman, Evan K, DO, MPH Discharge Disposition: Home-Health Care Svc 04/09/2025 Procedure Pass [facility] Ct Scan - Main [facility] [address] [place] [address] 03/30/2025 Home Care Visit [facility] [address] [place] [phone] Codi Powell, RN CASE COMMUNICATION from Last 3 Months Family History Medical History Relation Comments Parkinson's disease Brother Parkinson's disease Mother Relation Status Comments Brother Father Mother Social History Tobacco Use Types Packs/Day Years Used Date Smoking Tobacco: Former Cigarettes Q uit: 1958 Smokeless Tobacco: Never Tobacco Cessation:Counseling Given: Not Answered Alcohol Use Standard Drinks/Week Comments No 0 [...] Orientation Straight 04/07/2023 1: 33 PM EDT Last Filed Vital Signs Vital Sign Reading Time Taken Comments Blood Pressure 127/83 06/22/2025 12:37 PM EDT Pulse 74 06/22/2025 12:37 PM EDT Temperature 36.7 C (98.1 F) 06/22/2025 12:37 PM EDT Respiratory Rate 18 06/14/2025 12:35 PM EDT Oxygen Saturation 95% 06/22/2025 12:37 PM EDT Inhaled Oxygen Concentration - - Weight 102.1 kg (225 lb) 05/04/2025 1:20 PM EDT Height 170.2 cm (5' 7 ) 04/29/2025 12:58 AM EDT Body Mass Index 35.24 04/29/2025 12:58 AM EDT Plan of Treatment Upcoming Encounters Date Type Department Care Team (Late st Contact Info) Description 07/01/2025 10:00 AM EDT Home Care Visit [facility] [address] [place] [phone] Codi Powell RN [address] [place] [address] 07/04/2025 3:00 AM EDT Home Care Visit [facility] [address] [place] [phone] Codi Powell RN [address] [place] [address] [email or web address] 07/11/2025 2:00 AM EDT Home Care Visit [facility] [address] [place] [phone] Codi Powell RN [address] [place] [address] [email or web address] 07/18/2025 3:30 AM EDT Home Care Visit [facility] [address] [place] [phone] Codi Powell RN [address] [place] [phone] [email or web address] 07/25/2025 1:30 AM EDT Home Care Visit [facility] [address] [place] [phone] Codi Powell RN [address] [place] [phone] [email or web address] 08/01/2025 1:30 AM EDT Home Care Visit [facility] [address] [place] [phone] Codi Powell RN [address] [place] [address] [email or web address] 08/10/2025 12:30 AM EDT Appointment [facility] [address] [place] [phone] Codi Powell RN [address] [place] [address] Health Maintenance Due Date Last Done Comments PNEUMOCOCCAL VACCINES (50+ years) (1 of 2 - PCV) 1956 RSV VACCINE (1 - 1-dose 75+ series) 2012 ZOSTER VACCINES (2 of 2) 07/05/2020 05/10/2020 DEPRESSION SCREENING 09/07/2022 09/07/2021, 09/07/20 21 INFLUENZA VACCINE (#1) 2025 06/28/2021, 2016 COVID-19 VACCINE (4 - season) 2025 08/16/2021, 12/26/2020, 11/24/2020 CREATININE LEVEL 05/03/2026 05/03/2025, , 04/30/2025, Additional history exists POTASSIUM LEVEL 05/03/2026 05/03/2025, 04/19, 04/30/2025, Additional history exists Adult Td,Tdap Booster 07/10/2031 07/10/2021, 012 HEPATITIS A VACCINES Aged Out No long er eligible based on patient's age to complete this topic HIB VACCINES Aged Out No longer eligi ble based on patient's age to complete this topic MENINGOCOCCAL VACCINES (ACWY) Aged Out No longer eligible based on patient's age to complete this topic MENINGOCOCCAL VACCINES (B) Aged Out N o longer eligible based on patient's age to complete this topic Medical Devices Not on file Procedures Procedure Name Priority Date/Time Associated Diagnosis Comments CBC Routine 05/06/2025 3:08 PM EDT Sepsis, due to unspecified organism, unspecified whether acute organ dysfunction present CBC Routine 05/03/2025 5:07 AM EDT BASIC METABOLIC PANEL Routine 05/03/2025 5:07 AM EDT POCT GLUCOSE Routine 05/02/2025 8:11 PM EDT TRANSFUSE RED BLOOD CELLS Routine 05/02/2025 11:38 AM EDT BASIC METABOLIC PANEL Routine 05/02/2025 5:15 AM EDT CBC Routine 05/02/2025 5:15 AM EDT HC BLOOD OCCULT FECAL HGB DETER IA QUAL FECES 1-3 Routine 05/01/2025 11:24 AM EDT LFTS (HEPATIC PANEL) Routine 05/01/2025 6:57 AM EDT HAPTOGLOBIN Routine 05/01/2025 6:57 AM EDT CBC Routine 05/01/2025 6:57 AM EDT COVID PANDEMIC RESPIRATORY VIRAL ORDER (PRO) Routine 04/30/2025 6:01 PM EDT TYPE AND SCREEN (ABO,RH,ANTIBODY SCREEN) Routine 04/30/2025 7:20 AM EDT LAB ADD ON Routine 04/30/2025 7:12 AM EDT LDH Routine 04/30/2025 6:19 AM EDT CBC Routine 04/30/2025 6:19 AM EDT BASIC METABOLIC PANEL Routine 04/30/2025 6:19 AM EDT ECG 12-LEAD Routine 04/29/2025 3:02 PM EDT IP CONSULT TO WOUND NURSE Routine 04/29/2025 11:[address] ABDOMEN/PELVIS WITH CONTRAST Routine 04/29/2025 5:12 AM EDT LACTIC ACID (LACTATE) STAT 04/29/2025 4:50 AM EDT LACTIC ACID (LACTATE) STAT 04/29/2025 2:24 AM EDT MAGNESIUM STAT 04/29/2025 2:24 AM EDT LFTS (HEPATIC PANEL) STAT 04/29/2025 2:24 AM EDT BASIC METABOLIC PANEL STAT 04/29/2025 2:24 AM EDT CBC AND DIFFERENTIAL STAT 04/29/2025 2:24 AM EDT BLOOD CULTURE, ROUTINE STAT 2:24 AM EDT BLOOD CULTURE, ROUTINE STAT 2:24 AM EDT URINE SEDIMENT STAT 04/29/2025 1:58 AM EDT COVID PANDEMIC RESPIRATORY VIRAL ORDER (PRO) STAT 04/29/2025 1:58 AM EDT URINALYSIS W/REFLEX URINE CULTURE STAT 04/29/2025 1:58 AM EDT URINE CULTURE Routine 04/29/2025 1:58 AM EDT XR CHEST PORTABLE Routine 04/29/2025 1:4 7 AM EDT ECG 12-LEAD Routine 04/29/2025 1:05 AM EDT PHOSPHORUS Routine 04/14/2025 6:01 AM EDT MAGNESIUM Routine 04/14/2025 6:01 AM EDT CBC Routine 04/14/2025 6:01 AM EDT BASIC METABOLIC PANEL Routine 04/14/2025 6:01 AM EDT AIRWAY PLACEMENT Routine 04/13/2025 3:13 PM EDT MS ASPIRATION BLADDER INSERT SUPRAPUBIC CATHETER 04/13/2025 3:08 PM EDT retention PHOSPHORUS Routine 04/13/2025 6:28 AM EDT MAGNESIUM Routine 04/13/2025 6:28 AM EDT CBC Routine 04/13/2025 6:28 AM EDT BASIC METABOLIC PANEL Routine 04/13/2025 6:28 AM EDT TTE COMPREHENSIVE W/ LVO CONTRAST Routine 04/12/2025 11:00 AM EDT Bacteremia C-REACTIVE PROTEIN Routine 04/12/2025 5: 53 AM EDT SEDIMENTATION RATE (ESR) Routine 04/12/2025 5:53 AM EDT PHOSPHORUS Routine 04/12/2025 5:53 AM EDT MAGNESIUM Routine 04/12/2025 5:53 AM EDT CBC Routine 04/12/2025 5:53 AM EDT BASIC METABOLIC PANEL Routine 04/12/2025 5:53 AM EDT BLOOD CULTURE, ROUTINE STAT 7:32 PM EDT BLOOD CULTURE, ROUTINE STAT 7:32 PM EDT VANCOMYCIN, TROUGH Timed 04/11/2025 12 :34 PM EDT COVID PANDEMIC RESPIRATORY VIRAL ORDER (PRO) Routine 04/11/2025 11:41 AM EDT MRSA PCR SCREEN Routine 04/11/2025 11:41 AM EDT FOLATE Routine 04/11/2025 5:42 AM EDT VITAMIN B12 Routine 04/11/2025 5:42 AM EDT FERRITIN Routine 04/11/2025 5:42 AM EDT IRON AND IRON BINDING CAPACITY Routine 04/11/2025 5:42 AM EDT C-REACTIVE PROTEIN Routine 04/11/2025 5: 42 AM EDT PHOSPHORUS Routine 04/11/2025 5:42 AM EDT MAGNESIUM Routine 04/11/2025 5:42 AM EDT CBC AND DIFFERENTIAL Routine 04/11/2025 5:42 AM EDT BASIC METABOLIC PANEL Routine 04/11/2025 5:42 AM EDT IP CONSULT TO WOUND NURSE Routine 04/10/2025 4:51 PM EDT VANCOMYCIN, PEAK Timed 04/10/2025 4:17 PM EDT COMPREHENSIVE METABOLIC PANEL Routine 04/10/2025 6:03 AM EDT CBC AND DIFFERENTIAL Routine 04/10/2025 6:03 AM EDT PHOSPHORUS Routine 04/10/2025 6:03 AM EDT MAGNESIUM Routine 04/10/2025 6:03 AM EDT TROPONIN STAT 04/10/2025 12:49 AM EDT C-REACTIVE PROTEIN STAT 04/09/2025 10 :10 PM EDT SEDIMENTATION RATE (ESR) STAT 04/09/2025 10:10 PM EDT PROCALCITONIN STAT 04/09/2025 10:10 PM EDT VENOUS BLOOD GAS STAT 04/09/2025 10:1 0 PM EDT LACTIC ACID (LACTATE) STAT 04/09/2025 10:10 PM EDT TROPONIN STAT 04/09/2025 10:[address] ABDOMEN/PELVIS WITHOUT CONTRAST Routine 04/09/2025 10:01 PM EDT COVID PANDEMIC RESPIRATORY VIRAL ORDER (PRO) STAT 04/09/2025 8:26 PM EDT LACTIC ACID (LACTATE) STAT 04/09/2025 6:39 PM EDT TSH WITH REFLEX Routine 04/09/2025 4:57 PM EDT TROPONIN Routine 04/09/2025 4:57 PM EDT NT-PROBNP Routine 04/09/2025 4:57 PM EDT PT-INR STAT 04/09/2025 4:57 PM EDT LACTIC ACID (LACTATE) STAT 04/09/2025 4:57 PM EDT LIPASE STAT 04/09/2025 4:57 PM EDT LFTS (HEPATIC PANEL) STAT 04/09/2025 4:57 PM EDT MAGNESIUM STAT 04/09/2025 4:57 PM EDT BASIC METABOLIC PANEL STAT 04/09/2025 4:57 PM EDT CBC AND DIFFERENTIAL STAT 04/09/2025 4:57 PM EDT BLOOD CULTURE, ROUTINE STAT 5 4:57 PM EDT BLOOD CULTURE, ROUTINE STAT 5 4:57 PM EDT ECG 12-LEAD STAT 04/09/2025 4:44 PM EDT XR CHEST PORTABLE STAT 04/09/2025 4:4 1 PM EDT URINE SEDIMENT STAT 04/09/2025 4:29 PM EDT URINALYSIS W/REFLEX URINE CULTURE STAT 04/09/2025 4:29 PM EDT URINE CULTURE Routine 04/09/2025 4:29 PM EDT from Last 3 Months Results * (ABNORMAL) CBC (05/06/2025 3:08 PM EDT) Only the most recent of8 resultswithin the time period is included. WBC 6.90 4.00 - 11.00 K/uL [facility] RBC 2.83(L) 4.50 - 5.90 M/uL [facility] HGB 9.2(L) 13.5 - 17.5 g/dL [facility] HCT 28.4(L) 41.0 - 53.0 % [facility] PLT 148(L) 150 - 450 K/uL [facility] MCV 100.4(H) 80.0 - 100.0 fL [facility] MCH 32.5(H) 27.0 - 31.0 pg [facility] MCHC 32.4 32.0 - 36.0 g/dL [facility] RDW 16.4(H) 11.5 - 14.5 % [facility] MPV 9.4 8.4 - 12.0 fL [facility] NRBC 0.00 0.00 /100 WBCs [facility] ABSOLUTE NRBC 0.00 0.00 K/uL [facility] Blood 05/06/2025 3:08 PM EDT 05/06/2025 3:14 PM EDT us Ana Farias MD LAB BLOOD ORDERABLES Fin al Result [facility] [address] [place] [address] * (ABNORMAL) Basic metabolic panel (05/03/2025 5:07 AM EDT) Only the most recent of9 resultswithin the time period is included. SODIUM 141 133 - 146 mmol/L [facility] CHLORIDE 108 96 - 108 mmol/L [facility] POTASSIUM 4.2 3.3 - 5.1 mmol/L [facility] CO2 24 21 - 35 mmol/L [facility] BUN 24(H) 6 - 19 mg/dL [facility] CREATININE 1.80(H) 0.5 - 1.5 mg/dL [facility] GLUCOSE 86 70 - 99 mg/dL [facility] CALCIUM 8.6 8.4 - 10.3 mg/dL [facility] EGFR 36(L) >59 mL/min/1.7 3m2 [facility] Comment:Estimated glomerular filtration rate calculated using the CKD-EPI refit equation. ANION GAP 13 10 - 20 mmol/L [facility] Blood 05/03/2025 5:07 AM EDT 05/03/2025 5:29 AM EDT us Albert Mccormack MD LAB BLOOD ORDERABLES Final Result Performing Organization Address [facility]/[place] de Phone Number [address] [address] * (ABNORMAL) POCT Glucose (05/02/2025 8:11 PM EDT) Glucose, POCT 141(H) 70 - 100 mg/dL [facility] 05/02/2025 8:11 PM EDT 05/02/2025 10:41 PM EDT us Albert Mccormack MD POINT OF CARE TEST ORDERABL ES Final Result Performing Organization Address [facility]/ZIP Co de Phone Number [address] [address] * Transfuse RBC (05/02/2025 2:48 PM EDT) Result Estefany Mccormack MD NURSING TREATMENT ORDERABLE S - BLOOD ADMIN Final Result Performing Organization Address [facility] Co de Phone Number [phone] * Fecal immunochemical test x1 (FIT) (05/01/2025 11:24 AM EDT) Pathologist [facility] Immuno Fecal Occult Negative Negative [facility] Stool (Stool) 05/01/2025 11: 24 AM EDT 05/01/2025 11:27 AM EDT Albert Mccormack MD BODY FLUIDS AND STOOLS ORDE RABLES Final Result Performing Organization Address [facility]/ZIP Co de Phone Number [address] [address] * (ABNORMAL) LFTs (hepatic panel) (05/01/2025 6:57 AM EDT) Only the most recent of3 resultswithin the time period is included. [facility] ALKALINE PHOSPHATASE 43 39 - 117 U/L [facility] TOTAL BILIRUBIN 0.4 0.0 - 1.2 mg/dL [facility] DIRECT BILIRUBIN 0.2 0.0 - 0.2 mg/dL [facility] Bilirubin (Indirect) 0.2 0 - 1.5 mg/dL [facility] AST 12 0 - 37 U/L [facility] ALT 12 0 - 40 U/L [facility] TOTAL PROTEIN 6.6 6.5 - 8.0 g/dL [facility] ALBUMIN 3.4(L) 3.9 - 4.8 g/dL [facility] GLOBULIN 3.2 1 - 4.8 g/dL [facility] A/G Ratio 1.06 1.00 - 4.80 RATIO [facility] Blood 05/01/2025 6:57 AM EDT 05/01/2025 7:06 AM EDT Albert Mccormack MD LAB BLOOD ORDERABLES Final Result Performing Organization Address [facility]/ZIP Co de Phone Number [address] [address] * (ABNORMAL) Haptoglobin (05/01/2025 6:57 AM EDT) Pathologist [facility] HAPTOGLOBIN 260(H) 30 - 200 mg/dL [facility] Blood 05/01/2025 6:57 AM EDT 05/01/2025 7:06 AM EDT Albert Mccormack MD LAB BLOOD ORDERABLES Final Result Performing Organization Address [facility] Co de Phone Number [address] [address] * COVID Pandemic Respiratory Viral Order (PRO) (04/30/2025 6:01 PM EDT) Only the most recent of4 resultswithin the time period is included. Test Ordered COVID has been ordered [facility] SPECIMEN SOURCE/DESCRIPTION NASAL [facility] SARS-CoV 2 (COVID-19) PCR Negative Negative [facility] Comment: SARS-CoV-2 not detected Negative results do not preclude SARS-CoV-2 infection and should not be used as the sole basis for patient management decisions. Negative results must be combined with clinical observations, patient history, and epidemiological information. This test has been authorized by the FDA under an Emergency Use Authorization (EUA) for use by authorized laboratories. Other (Nasal swab) 04/30/2025 6:01 PM EDT 04/30/2025 6:13 PM EDT Albert Mccormack MD BODY FLUIDS AND STOOLS ORDE RABLES Final Result Performing Organization Address [facility] Co de Phone Number [facility] [address] [place] [address] * (ABNORMAL) Type and Screen (ABO,Rh,Antibody Screen) (04/30/2025 7:20 AM EDT) ABO/Rh A Positive [facility] Antibody Screen Positive(A) [facility] Expiration Date of Sample 05/03/2025,2 359 [facility] Antibody Identification Anti M (37c Active). [facility] Unit Number [id number] [facility] Component Type RBC LR [facility] Product Code [id number] [facility] Unit Division 00 [facility] Product Status ISSUED,FINAL CO [facility] Comment,Unit M NEG. [facility] Resulting Agency [facility] Blood 04/30/2025 7:20 AM EDT 04/30/2025 7:29 AM EDT us Albert Mccormack MD BLOOD BANK TEST ORDERABLES Final Result Performing Organization Address City/[facility]/ZIP Co de Phone Number [address] [address] * Lab Add On: ldh, haptoglobin (04/30/2025 7:12 AM EDT) TEST REQUESTED LDH, HAPTOGLOBIN [facility] Comments (Chemistry) Add on order being processed. Floor or provider will be notified if testing cannot be performed [facility] 04/30/2025 7:12 AM EDT 04/30/2025 8:13 AM EDT us Albert Mccormack MD LAB BLOOD ORDERABLES Final Result Performing Organization Address [facility] Co de Phone Number [address] [address] * LDH (04/30/2025 6:19 AM EDT) LDH 121 118 - 273 U/L [facility] 04/30/2025 6:19 AM EDT 04/30/2025 6:25 AM EDT Albert Mccormack MD LAB BLOOD ORDERABLES Final Result Performing Organization Address [facility] Co de Phone Number [address] [address] * ECG 12-LEAD (04/29/2025 3:02 PM EDT) Only the most recent of3 resultswithin the time period is included. 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 Above findings suggestive of cystitis. Gas within the urinary bladder may be related to recent instrumentation or emphysematous cystitis. Correlation with urinalysis suggested. Narrative 04/29/2025 5:[address] ABDOMEN/PELVIS WITH CONTRAST TECHNIQUE: Multidetector-row CT of the abdomen and pelvis was performed after administration of intravenous contrast using tailored dose modulation techniques. Images were reconstructed in the axial, coronal, and sagittal planes. COMPARISON: CT ABDOMEN/PELVIS WITHOUT CONTRAST FINDINGS: Lower Chest: No consolidation or pleural effusions. Liver: No suspicious lesion. Unchanged cyst along the hepatic dome. Biliary: No biliary ductal dilatation. Noninflamed gallbladder. Spleen: No splenomegaly or focal lesion. Pancreas: No peripancreatic inflammation. Prominent pancreatic duct measuring up to 8 mm with tapering towards the ampulla, unchanged. Adrenal Glands: No mass. Kidneys and Collecting System: No solid mass. No hydroureteronephrosis or nephrolithiasis. Bilateral renal cysts, including a likely hemorrhagic/proteinaceous 12 mm cyst arising from the right lower pole. Bowel: No abnormal bowel dilatation or inflamed segments. - - Peritoneum/Retroperitoneum: No extraluminal air. No significant ascites or focal fluid collection. Lymph Nodes: No pathologic adenopathy. Pelvic Organs: Suprapubic catheter terminating in the urinary bladder. Under distended urinary bladder with diffuse wall thickening and perivesicular stranding. Gas within the urinary bladder, with possible intramural component (for example 6; 36). Vessels: Atherosclerosis. No abdominal aortic aneurysm. Bones and Abdominal Wall: Multilevel spinal degeneration. No suspicious bony lesions. Procedure Note Sree Calvillo, DO - 04/29/2025 CT ABDOMEN/PELVIS WITH CONTRAST TECHNIQUE: Multidetector-row CT of the abdomen and pelvis was performedafter administration of intravenous contrast using tailored dosemodulation techniques. Images were reconstructed in the axial, coronal,and sagittal planes. COMPARISON: CT ABDOMEN/PELVIS WITHOUT CONTRAST FINDINGS: Lower Chest: No consolidation or pleural effusions. Liver: No suspicious lesion. Unchanged cyst along the hepatic dome. Biliary: No biliary ductal dilatation. Noninflamed gallbladder. Spleen: No splenomegaly or focal lesion. Pancreas: No peripancreatic inflammation. Prominent pancreatic ductmeasuring up to 8 mm with tapering towards the ampulla, unchanged. Adrenal Glands: No mass. Kidneys and Collecting System: No solid mass. No hydroureteronephrosis ornephrolithiasis. Bilateral renal cysts, including a likelyhemorrhagic/proteinaceous 12 mm cyst arising from the right lower pole. Bowel: No abnormal bowel dilatation or inflamed segments. - - Peritoneum/Retroperitoneum: No extraluminal air. No significant ascites orfocal fluid collection. Lymph Nodes: No pathologic adenopathy. Pelvic Organs: Suprapubic catheter terminating in the urinary bladder.Under distended urinary bladder with diffuse wall thickening andperivesicular stranding. Gas within the urinary bladder, with possibleintramural component (for example 6; 36). Vessels: Atherosclerosis. No abdominal aortic aneurysm. Bones and Abdominal Wall: Multilevel spinal degeneration. No suspiciousbony lesions. IMPRESSION: 1. Above findings suggestive of cystitis. Gas within the urinary bladdermay be related to recent instrumentation or emphysematous cystitis.Correlation with urinalysis suggested. us Caleb Enriquez DO IMG CT ABD/PELVIS Final Resul t * (ABNORMAL) Lactate (04/29/2025 4:50 AM EDT) Only the most recent of5 resultswithin the time period is included. LACTATE 2.75(H) 0.50 - 2.20 mmol/L [facility] Blood 04/29/2025 4:50 AM EDT 04/29/2025 4:53 AM EDT us Caleb Enriquez DO LAB BLOOD ORDERABLES Final Re sult Performing Organization Address [facility]/ZIP Co de Phone Number [address] [address] * Blood Culture, Routine (04/29/2025 2:24 AM EDT) Only the most recent of6 resultswithin the time period is included. Pathologist [facility] Special Requests None 04/29/2025 1:10 AM EDT [facility] BLOOD CULTURE NO GROWTH 5 DAYS 05/04/2025 2:36 AM EDT [facility] Blood (Blood) 04/29/2025 2:2 4 AM EDT 04/29/2025 2:28 AM EDT Comment:BLOOD us Caleb Enriquez DO MICROBIOLOGY - GENERAL ORDERA BLES Final Result Performing Organization Address City/[facility]/ZIP Co de Phone Number [address] [address] * (ABNORMAL) CBC and differential (04/29/2025 2:24 AM EDT) Only the most recent of4 resultswithin the time period is included. WBC 8.77 4.00 - 11.00 K/uL [facility] RBC 2.52(L) 4.50 - 5.90 M/uL [facility] HGB 8.5(L) 13.5 - 17.5 g/dL [facility] HCT 26.7(L) 41.0 - 53.0 % [facility] PLT 115(L) 150 - 450 K/uL [facility] MCV 106.0(H) 80.0 - 100.0 fL [facility] MCH 33.7(H) 27.0 - 31.0 pg [facility] MCHC 31.8(L) 32.0 - 36.0 g/dL [facility] RDW 14.0 11.5 - 14.5 % [facility] MPV 8.9 8.4 - 12.0 fL [facility] NRBC 0.00 0.00 /100 WBCs [facility] ABSOLUTE NRBC 0.00 0.00 K/uL [facility] DIFF METHOD Auto [facility] NEUTS 83.8(H) 48.0 - 76.0 % [facility] LYMPHS 6.0(L) 18.0 - 41.0 % [facility] MONOS 7.9 4.0 - 11.0 % [facility] EOS 1.4 0.0 - 5.0 % [facility] BASOS 0.3 0.0 - 1.5 % [facility] Granulocytes, immature (%) 0.6 0.0 - 0.9 % [facility] ABSOLUTE NEUTS 7.35 1.92 - 7.60 K/uL [facility] ABSOLUTE LYMPHS 0.53(L) 0.72 - 4.10 K/uL [facility] ABSOLUTE MONOS 0.69 0.16 - 1.10 K/uL [facility] ABSOLUTE EOS 0.12 0.00 - 0.50 K/uL [facility] ABSOLUTE BASOS 0.03 0.00 - 0.15 K/uL [facility] Granulocytes, immature 0.05 0.00 - 0.09 K/uL [facility] Blood 04/29/2025 2:24 AM EDT 04/29/2025 2:28 AM EDT us Caleb Enriquez DO LAB BLOOD ORDERABLES Final Re sult [address] [address] * Magnesium (04/29/2025 2:24 AM EDT) Only the most recent of7 resultswithin the time period is included. MAGNESIUM 1.8 1.6 - 2.6 mg/dL [facility] Blood 04/29/2025 2:24 AM EDT 04/29/2025 2:28 AM EDT us Caleb G Enriquez DO LAB BLOOD ORDERABLES Final Re sult Performing Organization Address [facility] de Phone Number [address] [address] * (ABNORMAL) Urinalysis w/reflex Urine Culture (04/29/2025 1:58 AM EDT) Only the most recent of2 resultswithin the time period is included. COLOR Yellow Yellow [facility] CLARITY Clear [facility] GLUCOSE Negative Negative [facility] BILI Negative Negative [facility] KETONES Negative Negative [facility] SPECIFIC GRAVITY 1.010 1.005 - 1.030 [facility] BLOOD 2+(A) Negative [facility] PH 6.0 5.0 - 8.0 [facility] Protein-UA Trace(A) Negative [facility] NITRITE Positive(A) Negative [facility] Leukocyte esterase, ur Trace(A) Negative [facility] Urine (Urine) 04/29/2025 1:5 8 AM EDT 04/29/2025 3:07 AM EDT us Caleb G Enriquez DO URINE ORDERABLES Final Result Performing Organization Address [facility] Co de Phone Number [address] [address] * (ABNORMAL) Urine Culture (04/29/2025 1:58 AM EDT) Only the most recent of2 resultswithin the time period is included. Special Requests None Reflexed from [id number] 04/29/2025 3:39 AM EDT [facility] Urine Culture >100,000 colony forming units per mL KLEBSIELLA PNEUMONIAE(A) 05/01/2025 10:27 AM EDT [facility] Urine 04/29/2025 1:58 AM EDT 04/29/2025 3:07 AM EDT Narrative Organism Antibiotic Method Susceptibility Klebsiella pneumoniae Ampicillin MARGE METHOD 16: Resistant Klebsiella pneumoniae Amoxicillin + Clavulanate MARGE ME THOD 4: Susceptible Klebsiella pneumoniae Ampicillin + Sulbactam MARGE METHO D 8: Susceptible Klebsiella pneumoniae Cefazolin MARGE METHOD <=4: Susceptible Klebsiella pneumoniae Cefepime MARGE METHOD <=1: Susceptible Klebsiella pneumoniae Ceftazidime MARGE METHOD <=1: Susceptible Klebsiella pneumoniae Ceftriaxone MARGE METHOD <=1: Susceptible Klebsiella pneumoniae Ciprofloxacin MARGE METHOD <=0.25: Susceptible Klebsiella pneumoniae Extended Spectrum B-lactamase NE C METHOD Negative Klebsiella pneumoniae Gentamicin MARGE METHOD <=1: Susceptible Klebsiella pneumoniae Levofloxacin MARGE METHOD 1: Susceptible Klebsiella pneumoniae Nitrofurantoin MARGE METHOD 128: Resistant Klebsiella pneumoniae Piperacillin-tazobactam MARGE METH OD 16: Susceptible Klebsiella pneumoniae Trimethoprim/sulfamethoxazole NE C METHOD <=20: Susceptible Comment: us Caleb Enriquez DO MICROBIOLOGY - GENERAL ORDERA BLES Final Result [address] [address] * (ABNORMAL) Urine sediment (04/29/2025 1:58 AM EDT) Only the most recent of2 resultswithin the time period is included. WBC 11-20(A) NONE SEEN /hpf [facility] RBC 11-20(A) NONE SEEN /hpf [facility] URINE EPITHELIAL 0-4(A) NONE SEEN [facility] MUCUS Trace(A) NONE SEEN /hpf [facility] BACTERIA Trace(A) NONE SEEN /hpf [facility] 04/29/2025 1:58 AM EDT 04/29/2025 3:07 AM EDT us Caleb Enriquez DO URINE ORDERABLES Final Result [address] [address] * XR Chest Portable (04/29/2025 1:47 AM EDT) Anatomical Region Laterality Modality Chest Computed Radiogr aphy 04/29/2025 2:52 AM EDT Impressions 04/29/2025 3:14 AM EDT No acute abnormality. ATTESTATION: Sree Ulloa as teaching physician, have reviewed the images for this case and if necessary edited the report originally created by Lucinda Tillman. Narrative 04/29/2025 3:14 AM EDT XR CHEST PORTABLE Referring clinician's provided indication for this examination in [facility]: Dyspnea (Shortness of Breath) COMPARISON: XR CHEST PORTABLE FINDINGS: Devices/Tubes/Lines: None. Lungs: Low lung volumes. No focal consolidation or pulmonary edema. Pleura: Indistinct bilateral costophrenic angles, likely secondary to prominent epicardial fat pads. Heart/Mediastinum: Unchanged in appearance. Calcified aortic arch. Bones/Soft Tissues: No significant abnormality. Procedure Note Sree Calvillo DO - 04/29/2025 XR CHEST PORTABLE Referring clinician's provided indication for this examination in [facility]:Dyspnea (Shortness of Breath) COMPARISON: XR CHEST PORTABLE FINDINGS: Devices/Tubes/Lines: None. Lungs: Low lung volumes. No focal consolidation or pulmonary edema. Pleura: Indistinct bilateral costophrenic angles, likely secondary toprominent epicardial fat pads. Heart/Mediastinum: Unchanged in appearance. Calcified aortic arch. Bones/Soft Tissues: No significant abnormality. IMPRESSION: No acute abnormality. ATTESTATION: Sree Ulloa as teaching physician, have reviewed theimages for this case and if necessary edited the report originally createdby Lucinda Tillman. us Caleb Enriquez DO IMG XR CHEST Final Result * Phosphorus (04/14/2025 6:01 AM EDT) Only the most recent of5 resultswithin the time period is included. PHOSPHORUS 2.9 2.7 - 4.5 mg/dL [facility] Blood 04/14/2025 6:01 AM EDT 04/14/2025 6:19 AM EDT Thony Woodruff MD LAB BLOOD ORDERABLES Final R esult [address] [address] * ANES ETT DOUBLE LUMEN - AIRWAY LDA (04/13/2025 3:13 PM EDT) Narrative Tristan Chavez CRNA - 04/13/2025 3:13 PM EDT Tristan Chavez CRNA 04/13/2025 3:15 PM Airway Placement Procedure Note: Procedure performed by: fellow/resident/TRANSPORTATION ECONOMICS TEACHER Anesthesiologist: Mary Del Real MD Fellow/Resident/TRANSPORTATION ECONOMICS TEACHER: Tristan Chavez CRNA Personal Protective Equipment: Mask: surgical mask Gloves: gloves Mask Ventilation: Quality: not attempted Airway Placement: Technique: LMA LMA Insertion: LMA size: 4 LMA type: flexible LMA placement attempts: 1. Outcomes: Evidence of dental injury? no Complications observed? no Reny Barton MD MS ANESTHESIA Final Res ult * TTE COMPREHENSIVE W/ LVO CONTRAST (04/12/2025 11:00 AM EDT) Body Surface Area 2.11 m2 Height 170 cm Weight 100 kg Systolic BP 131 mmHg Diastolic BP 77 mmHg Interventricular Septum Thickness 14 6 - 11 mm Left Ventricle Internal Diameter End Diastole 45 42 - 58 mm Left Ventricle Internal Diameter End Systole 27 <40 mm Left Ventricular Outflow Tract Diameter 18.0 mm LVOT VTI REST 241.0 mm Left Ventricular Outflow Tract Velocity 1.2 m/s Left Ventricular Outflow Tract Gradient at Rest 5 mmHg Left Ventricular Posterior Wall Thickness 10 6 - 11 mm Left Ventricle Ea Lateral Wave Speed 7.5 cm/s Left Ventricle Ea Septal Wave Speed 5.0 cm/s Ejection Fraction 70 50 - 75 Percent Aortic Valve Mean Gradient 8 mmHg Aortic Valve Time Velocity Integral 399.0 mm Aortic Valve Peak Velocity 1.9 m/s Aortic Valve Peak Gradient 14 mmHg Aortic Sinus Diameter 37 <40 mm Ascending Aorta Diameter 39 <36 mm Mitral Valve Area Pressure Half Time Eq 3,840.0 mm/s2 Mitral Valve Deceleration Time 216 ms MV stenosis pressure 1/2 time 63 ms Left Ventricle A Wave Speed 119.0 cm/s Left Ventricle E Wave Speed 82.9 cm/s Mitral Valve Mean Gradient 2 mmHg Mitral Valve Peak Gradient 6 mmHg Mitral Valve Area Continuity Equation 2.10 cm2 Pulmonary Valve Peak Velocity 1.2 m/s Pulmonary Valve Peak Gradient 5 mmHg Tricuspid Valve Peak Velocity 2.3 m/s Raw LV EF% 64 % MV E/E' Tissue Velocity Lateral 11.05 Relative Wall Thickness 0.44 0.22 - 0.42 Left Ventricle indexed to BSA 93.9 g/m2 MV E/A ratio 0.7 MV E/e' septal 16.58 Left Ventricle E/e' Average 13.8 Aortic Valve Prosthetic Peak Gradient 14 mmHg Aortic Valve Prosthetic Mean Gradient 8 mmHg Aortic Valve Sinus Index by BSA 18 mm/m2 Aorta Sinus Index by Height 2.18 cm/m Aorta Sinus CSA index by Height 6.32 cm2/m Ascending Aorta Index 18 mm/m2 Asc Aorta CSA Index by Height 7.02 cm2/m Mitral Valve Prosthetic Peak Gradient 6 mmHg Mitral Valve Prosthetic Mean Gradient 2 mmHg MV valve area p 1/2 method 3.5 cm2 Mitral Valve Area DT Method 18.3 cm2 Right Ventricle to Right Atrium Pressure Gradient 21 mmHg Right Ventricle Peak Systolic Pressure (Assuming RAP 10) 31 mmHg MGB CV ECHO TV RVSP (ASSUMING RAP OF 5) 26 mmHg RVSP (Exclusive of RAP) 21 mmHg Pulmonic Valve Prosthetic Peak Gradient 5 mmHg MGB CV AV DIMENSIONLESS INDEX (PEAK) - STRESS ECHO DOBUT - REST 0.63 Ascending Aorta Index 18 mm Aortic Sinus Index 18 mm Ascending Aorta Diameter 18 mm Aortic Valve Sinus Index 1 18 20 - 32 mm AO ASC DIAM BSA INDEX 18.48 Echo E/Ea 16.58 Left Atrial Volume Index 20 16 - 34 mL/m2 Right Ventricle TAPSE 19 >=17 mm Right Ventricle Pulse Doppler S Wave 12.3 >=9.5 cm/s Left Atrial Volume 43 mL Left Atrial Volume Index by Height 25 mL/m Anatomical Region Laterality Modality Heart Ultrasound Narrative 04/12/2025 11:52 AM EDT Images from the original result were not included. 1. The indication is bacteremia. The estimated ejection fracture left ventricle is completely normal at 65 to 70%. Diastolic function is normal left ventricular thickness is normal and regional wall motion is all normal. 2. Normal RV size and function. 3. Trileaflet aortic valve that is mildly thickened and calcified there is no evidence of significant aortic stenosis the mean gradient is 8 mmHg. The ascending aortic root is minimally dilated at 39 mm. 4. There is trace mitral and trace tricuspid sufficiency, the PA pressure is normal on the study. 5. Normal pericardium and when compared to the prior echocardiogram done in October 2024, no significant change. Left Ventricle The left ventricle is normal in size. There is LV hypertrophy with upper septal predominance. There is normal left ventricular systolic function. The LV ejection fraction is 70% (calculated via the single plane method of discs). LV diastolic function appears within normal limits for age. The E/A ratio is 0.7. The e' septal wave velocity is 5.0 cm/s. The e' lateral wave velocity is 7.5 cm/s. The average E/e' ratio is 13.8. Right Ventricle The RV is suboptimally visualized. There is normal right ventricular systolic function. TAPSE is 19 mm. RV S' wave is 12.3 cm/s. Left Atrium The left atrium is normal in size. The left atrial volume is 43 mL. The left atrial volume index by BSA is 20 mL/m2. There are normal flow patterns in the pulmonary vein. Right Atrium The right atrium is suboptimally visualized. The IVC is suboptimally visualized (RA pressure not estimated). Mitral Valve The mitral valve appears normal. There is posterior mitral annular calcification. There is no mitral stenosis. There is trace mitral regurgitation. Tricuspid Valve There is no obvious structural abnormality. There is no tricuspid stenosis. There is trace tricuspid regurgitation. The RV systolic pressure was calculated at 21 mmHg (using TR peak velocity of 2.3 m/s and exclusive of RA pressure). Aortic Valve The aortic valve is tricuspid. There is thickening of the right and noncoronary leaflets. The aortic valve peak velocity is 1.9 m/s. The peak and mean aortic valve gradients are 14 mmHg and 8 mmHg respectively. There is trace to mild aortic regurgitation. The aortic sinus diameter is 37 mm. The ascending aorta is dilated. The ascending aortic diameter is 39 mm. Pulmonic Valve There is no obvious structural abnormality. There is no pulmonic stenosis. Pericardium There is no pericardial effusion. General Findings The image quality was fair (3). Technique(s) used in the evaluation: Color flow Doppler and Spectral Doppler. Consent was obtained from: patient An ultrasound enhancing agent was administered IV, per ASE guidelines. The predominant rhythm during the study was sinus. Patient tolerated the procedure well. No complications observed during the procedure. Comparison Findings Compared to prior TTE on 11/01/2024, IAS/IVS The interatrial septum is suboptimally visualized. Jannet Amos DO CV ECHO ORDERABLES Final Resu lt * (ABNORMAL) Sedimentation rate (ESR) (04/12/2025 5:53 AM EDT) Only the most recent of2 resultswithin the time period is included. ESR 31(H) 0 - 20 mm/h [facility] Blood 04/12/2025 5:53 AM EDT 04/12/2025 6:18 AM EDT Result [facility] Thony Woodruff MD LAB BLOOD ORDERABLES Final R [facility] Performing Organization Address [facility] de Phone Number [address] [address] * (ABNORMAL) C-Reactive Protein (04/12/2025 5:53 AM EDT) Only the most recent of3 resultswithin the time period is included. C REACTIVE PROTEIN 43.4(H) 0.0 - 4.0 mg/L [facility] Blood 04/12/2025 5:53 AM EDT 04/12/2025 6:18 AM EDT Thony Woodruff MD LAB BLOOD ORDERABLES Final R esult Performing Organization Address City/[facility]/ZIP Co de Phone Number [address] [address] * Vancomycin, trough (04/11/2025 12:34 PM EDT) Pathologist [facility] VANCOMYCIN,TROU GH 11.1 10.0 - 20.0 ug/mL [facility] Comment: Interpretation: Therapeutic Range: 10.0 - 20.0 ug/ml. Toxic: Greater than 30.0 ug/ml. Blood 04/11/2025 12:3 4 PM EDT 04/11/2025 12:44 PM EDT Matthew [place] MD LAB BLOOD ORDERABLES Fin al Result [address] [address] * MRSA PCR SCREEN (04/11/2025 11:41 AM EDT) [facility] MRSA PCR SCREEN Negative Negative [facility] Comment:The Xpert MRSA Assay is intended to aid in the prevention and control of MRSA infections in healthcare settings. The assay is not intended to diagnose nor to guide or monitor treatment for MRSA infections. Other (Nasal) 04/11/2025 11: 41 AM EDT 04/11/2025 12:04 PM EDT Sravanthi Joseph PA-C, MPH NON CULTURE MICROBI OLOGY Final Result [address] [address] * (ABNORMAL) Iron and iron binding capacity (04/11/2025 5:42 AM EDT) Pathologist [facility] IRON 38(L) 45 - 160 ug/dL [facility] IRON BINDING CAPACITY 156(L) 228 - 428 ug/dL [facility] TRANSFERRIN SATURAT. 24 20 - 55 % [facility] Blood 04/11/2025 5:42 AM EDT 04/11/2025 6:26 AM EDT Matthew [facility] MD LAB BLOOD ORDERABLES Fin al Result Performing Organization Address City/[facility]/ZIP Co de Phone Number [address] [address] * Folate (04/11/2025 5:42 AM EDT) FOLIC ACID 8.8 4.2 - 19.9 ng/mL [facility] Blood 04/11/2025 5:42 AM EDT 04/11/2025 6:26 AM EDT Matthew [facility] MD LAB BLOOD ORDERABLES Fin al Result Performing Organization Address [facility] de Phone Number [address] [address] * Ferritin (04/11/2025 5:42 AM EDT) FERRITIN 336 30 - 400 ug/L [facility] Blood 04/11/2025 5:42 AM EDT 04/11/2025 6:26 AM EDT Matthew [facility] MD LAB BLOOD ORDERABLES Fin al Result Performing Organization Address [facility] Co de Phone Number [address] [address] * Vitamin B12 (04/11/2025 5:42 AM EDT) VITAMIN B12 567 232 - 1,245 pg/mL [facility] Blood 04/11/2025 5:42 AM EDT 04/11/2025 6:26 AM EDT Matthew [facility] MD LAB BLOOD ORDERABLES Fin al Result Performing Organization Address [facility] Co de Phone Number [address] [address] * (ABNORMAL) Vancomycin, peak (04/10/2025 4:17 PM EDT) VANCOMYCIN,PEA K 21.4(L) 30.0 - 40.0 ug/mL [facility] Comment: Interpretation: Therapeutic Range: 30 - 40 ug/ml. Toxic: Greater than or equal to 50 ug/ml. Blood 04/10/2025 4:17 PM EDT 04/10/2025 4:24 PM EDT us Matthew [facility] MD LAB BLOOD ORDERABLES Fin al Result [facility] [address] [place] [address] * (ABNORMAL) Comprehensive metabolic panel (04/10/2025 6:03 AM EDT) SODIUM 141 133 - 146 mmol/L [facility] POTASSIUM 4.2 3.3 - 5.1 mmol/L [facility] CHLORIDE 106 96 - 108 mmol/L [facility] CO2 25 21 - 35 mmol/L [facility] BUN 33(H) 6 - 19 mg/dL [facility] CREATININE 2.00(H) 0.5 - 1.5 mg/dL [facility] GLUCOSE 93 70 - 99 mg/dL [facility] ALBUMIN 3.4(L) 3.9 - 4.8 g/dL [facility] TOTAL PROTEIN 6.6 6.5 - 8.0 g/dL [facility] CALCIUM 9.1 8.4 - 10.3 mg/dL [facility] ALKALINE PHOSPHATASE 56 39 - 117 U/L [facility] TOTAL BILIRUBIN 0.6 0.0 - 1.2 mg/dL [facility] AST 15 0 - 37 U/L [facility] ALT 8 0 - 40 U/L [facility] GLOBULIN 3.2 1 - 4.8 g/dL [facility] EGFR 32(L) >59 mL/min/1.7 3m2 [facility] Comment:Estimated glomerular filtration rate calculated using the CKD-EPI refit equation. ANION GAP 14 10 - 20 mmol/L [facility] Blood 04/10/2025 6:03 AM EDT 04/10/2025 6:29 AM EDT us Esdras Grachev DO LAB BLOOD ORDERABLES Final Res ult Performing Organization Address City/[facility]/ZIP Co de Phone Number [address] [address] * (ABNORMAL) Troponin (04/10/2025 12:49 AM EDT) Only the most recent of3 resultswithin the time period is included. Troponin-T, HS Gen5 34(H) 0 - 14 ng/L [facility] Blood 04/10/2025 12:4 9 AM EDT 04/10/2025 12:52 AM EDT us Esdras Grachev DO LAB BLOOD ORDERABLES Final Res ult Performing Organization Address [facility] Co de Phone Number [address] [address] * (ABNORMAL) Procalcitonin (04/09/2025 10:10 PM EDT) Procalcitonin 1.01(H) 0.00 - 0.25 ng/mL [facility] Comment: <=0.25 ng/mL: Bacterial pneumonia is unlikely. <0.5 ng/mL: Low likelihood of systemic bacterial infection / sepsis. Localized infection is possible. 0.5-2.0 ng/mL: Systemic bacterial infection / sepsis is possible, but other conditions can induce PCT levels in this range as well (e.g., pancreatitis,severe trauma, circulatory shock, surgery, cardona, inhalation injury.) >2.0 ng/mL: Systemic bacterial infection / sepsis is likely. Additional information can be found in the [facility] Procalcitonin Guidelines, available at http://handbook.mgb.org/3817/Content/4-138-251 Blood 04/09/2025 10:1 0 PM EDT 04/09/2025 10:13 PM EDT us Esdars Grachev DO LAB BLOOD ORDERABLES Final Res ult Performing Organization Address [facility] Co de Phone Number [address] [address] * (ABNORMAL) Venous blood gas (04/09/2025 10:10 PM EDT) pH, Venous 7.42(H) 7.31 - 7.41 [facility] PCO2, Venous 38.90(L) 41.00 - 51.00 mmHg [facility] PO2, Venous 63.40(H) 35.00 - 40.00 mmHg [facility] HCO3, Venous 25 23 - 28 mmol/L [facility] BASE EXCESS VENOUS 0.3 0.0 - 3.0 mmol/L [facility] SO2, VENOUS 92.30(H) 60.00 - 80.00 % [facility] FO2HB, VENOUS 90.40(H) 71.00 - 74.00 % [facility] Carboxy Hgb 1.80(H) 0 - 1.50 % [facility] MetHgb % 0.30 0 - 1.50 % [facility] Blood 04/09/2025 10:1 0 PM EDT 04/09/2025 10:13 PM EDT Esdras Arora DO LAB BLOOD ORDERABLES Final Res ult Performing Organization Address [facility] Co de Phone Number [address] [address] * CT ABDOMEN/PELVIS WITHOUT CONTRAST (04/09/2025 10:01 PM EDT) Anatomical Region Laterality Modality Abdomen, Pelvis Computed Tomogra phy 04/09/2025 10:4 9 PM EDT Impressions 04/09/2025 11:20 PM EDT Circumferential bladder wall thickening with surrounding inflammatory stranding, intraluminal gas, and possible foci of intramural gas likely reflecting cystitis, possible emphysematous cystitis. Recommended correlation with history of recent catheterization given known chronic Crowley use. ATTESTATION: I, Dr. Christian Alan as teaching physician, have reviewed the images for this case and if necessary edited the report originally created by Jose Goel M.D.. Narrative 04/09/2025 11:[address] ABDOMEN/PELVIS WITHOUT CONTRAST Referring clinician's provided indication for this examination in Epic: * Abdominal pain, acute, nonlocalized Review of the Electronic Medical Record reveals an additional history of: hematuria and flulike symptoms TECHNIQUE: Multidetector-row CT of the abdomen and pelvis was performed without administration of intravenous contrast using tailored dose modulation techniques. Images were reconstructed in the axial, coronal, and sagittal planes. COMPARISON: CT ABDOMEN/PELVIS WITH CONTRAST FINDINGS: Limited evaluation of the solid organs and vasculature without intravenous contrast. Lower Chest: Bibasilar atelectasis. Normal heart size. Coronary atherosclerosis. Liver: Similar 5 cm hepatic cyst in segment 8. Biliary: Nondistended gallbladder. No calcified gallstones. No biliary ductal dilatation. Spleen: No splenomegaly or focal lesions. Pancreas: No obvious masses or ductal dilatation. Adrenal Glands: No nodules. Kidneys/Ureters: Bilateral renal cysts. Unchanged 1.2 cm right lower pole intermediate density lesion, again likely a proteinaceous/hemorrhagic cyst (3:240). No stones. Increased bilateral pelvic fullness. Bowel: Prior appendectomy. Colonic diverticulosis without diverticulitis. Normal small bowel. Peritoneum/Retroperitoneum: No pneumoperitoneum, or fluid. Lymph Nodes: No lymphadenopathy. Pelvic Organs/Bladder: Mildly distended bladder with circumferential wall thickening, perivesicular inflammatory fat stranding, and small to moderate volume intraluminal gas with possible foci of intramural component within the left lateral bladder wall. Vessels: Aortic atherosclerosis. No aortic aneurysm. Bones/Soft Tissues: Degenerative changes of the spine. Procedure Note Christian Bah MD - 04/09/2025 CT ABDOMEN/PELVIS WITHOUT CONTRAST Referring clinician's provided indication for this examination in [facility]: *Abdominal pain, acute, nonlocalized Review of the Electronic Medical Record reveals an additional history of:hematuria and flulike symptoms TECHNIQUE: Multidetector-row CT of the abdomen and pelvis was performedwithout administration of intravenous contrast using tailored dosemodulation techniques. Images were reconstructed in the axial, coronal,and sagittal planes. COMPARISON: CT ABDOMEN/PELVIS WITH CONTRAST FINDINGS: Limited evaluation of the solid organs and vasculature withoutintravenous contrast. Lower Chest: Bibasilar atelectasis. Normal heart size. Coronaryatherosclerosis. Liver: Similar 5 cm hepatic cyst in segment 8. Biliary: Nondistended gallbladder. No calcified gallstones. No biliaryductal dilatation. Spleen: No splenomegaly or focal lesions. Pancreas: No obvious masses or ductal dilatation. Adrenal Glands: No nodules. Kidneys/Ureters: Bilateral renal cysts. Unchanged 1.2 cm right lower poleintermediate density lesion, again likely a proteinaceous/hemorrhagic cyst(3:240). No stones. Increased bilateral pelvic fullness. Bowel: Prior appendectomy. Colonic diverticulosis without diverticulitis.Normal small bowel. Peritoneum/Retroperitoneum: No pneumoperitoneum, or fluid. Lymph Nodes: No lymphadenopathy. Pelvic Organs/Bladder: Mildly distended bladder with circumferential wallthickening, perivesicular inflammatory fat stranding, and small tomoderate volume intraluminal gas with possible foci of intramuralcomponent within the left lateral bladder wall. Vessels: Aortic atherosclerosis. No aortic aneurysm. Bones/Soft Tissues: Degenerative changes of the spine. IMPRESSION: Circumferential bladder wall thickening with surrounding inflammatorystranding, intraluminal gas, and possible foci of intramural gas likelyreflecting cystitis, possible emphysematous cystitis. Recommendedcorrelation with history of recent catheterization given known chronicFoley use. ATTESTATION: I, Dr. Christian Alan as teaching physician, havereviewed the images for this case and if necessary edited the reportoriginally created by Jose Goel M.D.. Nima Can MD, MPH, JACOB IMG CT ABD/ PELVIS Final Result * TSH with reflex (04/09/2025 4:57 PM EDT) TSH 1.87 0.27 - 4.20 uIU/mL [facility] 04/09/2025 4:57 PM EDT 04/09/2025 5:05 PM EDT us Sae Dick MD LAB BLOOD ORDERAB LES Final Result Performing Organization Address [facility] Co de Phone Number [address] [address] * PT-INR (04/09/2025 4:57 PM EDT) PT 12.2 10.2 - 12.9 sec [facility] INR 1.0 0.9 - 1.1 [facility] Comment:Therapeutic range fo r oral Vitamin K antagonists: 2.0-3.5 Blood 04/09/2025 4:57 PM EDT 04/09/2025 5:05 PM EDT Nima Can MD, MPH, JACOB LAB BLOOD O RDERABLES Final Result Performing Organization Address [facility] Co de Phone Number [address] [address] * NT-proBNP (04/09/2025 4:57 PM EDT) NT-PROBNP 176 0 - 450 pg/mL [facility] 04/09/2025 4:57 PM EDT 04/09/2025 5:05 PM EDT us Sae Dick MD LAB BLOOD ORDERAB LES Final Result Performing Organization Address [facility] Co de Phone Number [address] [address] * (ABNORMAL) Lipase (04/09/2025 4:57 PM EDT) LIPASE 107(H) 16 - 63 U/L [facility] Blood 04/09/2025 4:57 PM EDT 04/09/2025 5:05 PM EDT us Nima Can MD, MPH, JACOB LAB BLOOD O RDERABLES Final Result [facility] [address] [place] [address] * XR Chest Portable (04/09/2025 4:41 PM EDT) Anatomical Region Laterality Modality Chest Computed Radiogr aphy 04/09/2025 4:46 PM EDT Impressions 04/09/2025 4:48 PM EDT No focal consolidation or pulmonary edema. Narrative 04/09/2025 4:48 PM EDT XR CHEST PORTABLE Referring clinician's provided indication for this examination in [facility]: Fatigue COMPARISON: XR CHEST PORTABLE ; CT CHEST WITHOUT CONTRAST FINDINGS: Devices/Tubes/Lines: None. Lungs: Low lung volumes. No focal consolidation or pulmonary edema. Pleura: No pleural effusion or pneumothorax. Heart/Mediastinum: Unchanged in appearance. Bones/Soft Tissues: Degenerative changes of thoracic spine and bilateral shoulders. Procedure Note Rossi Nascimento MD - 04/09/2025 XR CHEST PORTABLE Referring clinician's provided indication for this examination in [facility]:Fatigue COMPARISON: XR CHEST PORTABLE ; CT CHEST WITHOUT [id number] FINDINGS: Devices/Tubes/Lines: None. Lungs: Low lung volumes. No focal consolidation or pulmonary edema. Pleura: No pleural effusion or pneumothorax. Heart/Mediastinum: Unchanged in appearance. Bones/Soft Tissues: Degenerative changes of thoracic spine and bilateralshoulders. IMPRESSION: No focal consolidation or pulmonary edema. 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 Insurance MEDICARE PART A & B [employer] MED[employer] SUPPLEMENT MEDICARE PART A & B [employer] MED[employer] SUPPLEMENT MEDICARE PART A & B Member Subscriber Plan / Payer (Ef fective 2002-Present) Name:Tristan Jones Member ID:[id number] Relation to Subscriber:Self Name:Tristan Jones Subscriber ID:[id number] Payer ID:[id number] Group ID:Not on file Type:Medicare Address: [employer] [address] [employer] MEDICARE SUPPLEMENT MEDICARE PART A & B [employer] MEDICARE SUPPLEMENT MEDICARE PART A & B [employer] MEDICARE SUPPLEMENT MEDICARE PART A & B Member Subscriber Plan / Payer (Ef fective 2002-Present) Name:Tristan Jones Member ID:[id number] Relation to Subscriber:Self Name:Tristan Jones Subscriber ID:[id number] Payer ID:[id number] Group ID:Not on file Type:Medicare Address: [employer] [address] [employer] EXTENSION MEDICARE SUPPLEMENT MEDICARE PART A & B [facility] EXTENSION MEDICARE SUPPLEMENT MEDICARE PART A & B 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 11/24/2024 9:12 AM Healthcare Proxy 06/03/2024 12:25 PM Healt h Care Proxy * Full Code (Latest Code Status on File) Date Activated Date Inactivated Comments 04/29/2025 9:08 AM Question Answer Comments Code Status Confirmed With: Family Code Status Communicated To: Inpatient Attending * Full Code Date Activated Date Inactivated Comments 04/10/2025 12:50 AM 04/29/2025 9:08 AM Question Answer Comments Code Status Confirmed With: Patient Code Status Communicated To: Inpatient Attending * Full Code Date Activated Date Inactivated Comments 11/12/2024 2:37 PM 04/10/2025 12:50 AM Question Answer Comments Code Status Confirmed With: Patient Code Status Communicated To: Inpatient Attending * Full Code Date Activated Date Inactivated Comments 10/28/2024 4:05 PM 11/12/2024 2:37 PM Question Answer Comments Code Status Confirmed With: Family Code Status Communicated To: Inpatient Attending * Full Code Date Activated Date Inactivated Comments 06/02/2024 2:43 AM 10/28/2024 4:05 PM Question Answer Comments Code Status Confirmed With: Family Code Status Communicated To: Inpatient Attending Care Teams Tool Checker Relationship Specialty Start Date End Date Ana Farias MD [address] [place] [phone] PCP - General Family Medicine 01/28/19 Ana Farias MD [address] [place] [address] Historical LMR Provider 08/10/17 Additional Source Comments The information contained in this document represents components of the legal health record. It is not the complete legal health record.[facility]
--- OUTSIDE RECORDS SUMMARY | 2025-06-28 17:59 | XMS_ITS | Encounter Summary ---
Author Organization [facility] Address [address] [place] [address] Phone Care Team Providers Care Chainstitch Tunnel Elastic Operator Name Role Phone Arjun Zhou MD Unavailable [phone] Ryan Clemente MD Unavailable [phone] Ana Farias MD Unavailable [phone] Ana Farias MD Primary Care Provider + Ana Farias MD Primary Care Provider + Reason for Referral * Physical Therapy (Routine) - Closed Specialty Diagnoses / Procedures Referred By Lihn kumar Referred To Contact Physical Therapy Diagnoses Encounter for rehabilitation Ana Farias MD Phone: tel: fax: [email or web address] [facility] [address] [place] [address] Phone: tel: Referral ID Status Reason Start Date Expiration Date Visits Re quested Visits Authorized [id number] Closed 05/13/2018 05/13/2019 1 1 Encounter Details Date Type Department Care Team (Latest Contact Info) Description 05/13/2018 Transcribe Orders [facility] [address] [place] [address] Ana Farias MD [address] [place] [address] [email or web address] Encounter for rehabilitation (Primary Dx) Social History Tobacco Use Types [...] 10:00 AM EDT Home Care Visit Self [facility] [address] [place] [phone] Codi Powell RN [address] [place] [address] 07/04/2025 3:00 AM EDT Home Care Visit [facility] [address] [place] [phone] Codi Powell RN [address] [place] [address] 07/11/2025 2:00 AM EDT Home Care Visit Self [facility] [address] [place] [phone] Codi Powell RN [address] [place] [address] 07/18/2025 3:30 AM EDT Home Care Visit Slef [facility] [address] [place] [phone] Codi Powell RN [address] [place] [address] 07/25/2025 1:30 AM EDT Home Care Visit [facility] [address] [place], [place] [phone] Codi Powell RN [address] [place] [address] 08/01/2025 1:30 AM EDT Home Care Visit [facility] [address] [place], [place] [phone] Codi Powell RN [address] [place] [address] 08/10/2025 12:30 AM EDT Appointment [facility] [address] [place], [place] [phone] Codi Powell RN [address] [place] [phone] Scheduled Referrals Name Type Priority Associated Diagnoses Orde r Schedule Ambulatory referral to [facility] Physical Therapy Outpatient Referral Routine Encounter for rehabilitation Ordered: 05/13/2018 documented as of this encounter Visit Diagnoses Diagnosis Encounter for rehabilitation- Primary documented in this encounter Additional Health [...] documented as of this encounter Care Teams Chainstitch Tunnel Elastic Operator Relationship Specialty Start Date End Date Ana Farias MD [address] [place] [address] [email or web address] PCP - General 10/23/17 01/27/19 Ana Farias MD [address] [place] [address] [email or web address] PCP - General Family Medicine 01/28/19 Arjun Zhou MD [address] [place] [address] Historical LMR Provider 08/10/17 Ryan Clemente MD [address] [place] [address] [address] [place] [address] [email or web address] Historical LMR Provider 08/10/17 10/27/21 Ana Farias MD [address] [place] [address] [email or web address] Historical LMR Provider 08/10/17 documented as of this encounter Additional Source Comments The information contained in this document represents components of the legal health record. It is not the complete legal health record.[facility]
--- OUTSIDE RECORDS SUMMARY | 2025-06-28 17:59 | XMS_ITS | Encounter Summary ---
Author Organization [facility] Address [address] [place] [address] Phone Care Team Providers Care University Dean Name Role Phone Ana Farias MD Unavailable [phone] Ana Farias MD Primary Care Provider + Encounter Details Date Type Department Care Team (Late st Contact Info) Description 11/02/2024 Procedure Pass [facility] [address] [place] [address] Social History Tobacco Use Types Packs/Day Years [...] Visit [facility] [address] [place] [phone] Codi Powell RN [address] [place] [address] 07/04/2025 3:00 AM EDT Home Care Visit Self [facility] [address] [place] [phone] Codi Powell RN [address] [place] [address] 07/11/2025 2:00 AM EDT Home Care Visit Self [facility] [address] [place] [phone] Codi Powell RN [address] [place] [address] 07/18/2025 3:30 AM EDT Home Care Visit Self [facility] [address] [place] [phone] Codi Powell RN [address] [place] [address] 07/25/2025 1:30 AM EDT Home Care Visit Self [facility] [address] [place] [phone] Codi Powell RN [address] [place] [address] 08/01/2025 1:30 AM EDT Home Care Visit Self [facility] [address] [place] [phone] Codi Powell RN [address] [place] [address] 08/10/2025 12:30 AM EDT Appointment [facility] [address] [place] [phone] Codi Powell RN [address] [place] [address] documented as of this encounter Visit Diagnoses Not on filedocumented in this encounter Additional Health Concerns Infection Onset Date Last Indicated Resolved Time CoV-Risk Comment:Per note documentation 11/11/2024 11/11/2024 7:23 [...] documented as of this encounter Care Teams University Dean Relationship Specialty Start Date End Date Ana Farias MD [address] [place] [address] [email or web address] PCP - General Family Medicine 01/28/19 Ana Farias MD [address] [place] [address] Historical LMR Provider 08/10/17 documented as of this encounter Additional Source Comments The information contained in this document represents components of the legal health record. It is not the complete legal health record.[facility]
--- OUTSIDE RECORDS SUMMARY | 2025-06-28 17:59 | XMS_ITS | Encounter Summary ---
Author Organization [facility] Address [address] [place] [address] Phone Care Team Providers Care Supervisor Dried Yeast Name Role Phone Ana Farias MD Unavailable [phone] Ana Farias MD Primary Care Provider + Encounter Details Date Type Department Care Team (Late st Contact Info) Description 10/31/2024 Procedure Pass [facility], [address] [phone] Social History Tobacco Use Types Packs/Day Years [...] Visit [facility] [address] [place] [phone] Codi Powell RN [address] [place] [address] 07/04/2025 3:00 AM EDT Home Care Visit Self [facility] [address] [place] [phone] Codi Powell RN [address] [place] [address] [email or web address] 07/11/2025 2:00 AM EDT Home Care Visit Self [facility] [address] [place] [phone] Codi Powell RN [address] [place] [address] 07/18/2025 3:30 AM EDT Home Care Visit Self [facility] [address] [place] [phone] Codi Powell RN [address] [place] [address] 07/25/2025 1:30 AM EDT Home Care Visit Self [facility] [address] [place] [phone] Codi Powell RN [address] [place] [address] [email or web address] 08/01/2025 1:30 AM EDT Home Care Visit Self [facility] [address] [place] [phone] Codi Powell RN [address] [place] [address] [email or web address] 08/10/2025 12:30 AM EDT Appointment Self [facility] [address] [place] [phone] Codi Powell RN [address] [place] [address] documented as of this encounter Visit Diagnoses [...] documented as of this encounter Care Teams Supervisor Dried Yeast Relationship Specialty Start Date End Date Ana Farias MD [address] [place] [address] [email or web address] PCP - General Family Medicine 01/28/19 Ana Farias MD [address] [place] [address] [email or web address] Historical LMR Provider 08/10/17 documented as of this encounter Additional Source Comments The information contained in this document represents components of the legal health record. It is not the complete legal health record.[facility]
--- OUTSIDE RECORDS SUMMARY | 2025-06-28 17:59 | XMS_ITS | Encounter Summary ---
Author Organization [facility] Address [address] [place] [address] [place] [phone] Phone Care Team Providers Care Creative Manager Name Role Phone Arjun Zhou MD Unavailable Ryan Clemente MD Unavailable Ana Farias MD Unavailable Ana Farias MD Primary Care Provider + Ana Farias MD Primary Care Provider + Encounter Details Date Type Department Care Team (Late Contact Info) Description 03/03/2018 Ancillary Orders Virtual Department [address] [place] [address] Ana Farias MD [address] [place] [address] [email or web address] Cough Social History Tobacco Use Types Packs/Day [...] Encounters Date Type Department Care Team (Late Contact Info) Description 07/01/2025 10:00 AM EDT Home Care Visit [facility] [address] [place] [phone] Codi Powell RN [address] [place] [address] 07/04/2025 3:00 AM EDT Home Care Visit Self [facility] [address] [place] [phone] Codi Powell RN [address] [place] [address] 07/11/2025 2:00 AM EDT Home Care Visit Self [facility] [address] [place] [phone] Codi Powell RN [address] [place] [address] 07/18/2025 3:30 AM EDT Home Care Visit Self [facility] [address] [place] [phone] Codi Powell RN [address] [place] [address] 07/25/2025 1:30 AM EDT Home Care Visit Self [facility] [address] [place] [phone] Codi Powell RN [address] [place] [address] 08/01/2025 1:30 AM EDT Home Care Visit Self [facility] [address] [place] [phone] Codi Powell RN [address] [place] [address] 08/10/2025 12:30 AM EDT Appointment Self [facility] [address] [place], [place] [phone] Codi Powell RN [address] [place] [address] [email or web address] documented as of this encounter Visit Diagnoses Diagnosis Cough documented in this encounter Additional Health [...] documented as of this encounter Care Teams Creative Manager Relationship Specialty Start Date End Date Ana Farias MD [address] [place] [address] [email or web address] PCP - General 10/23/17 01/27/19 Ana Farias MD [address] [place] [address] [email or web address] PCP - General Family Medicine 01/28/19 Arjun Zhou MD [address] [place] [address] Historical LMR Provider 08/10/17 Ryan Clemente MD [address] [place] [address] [email or web address] Historical LMR Provider 08/10/17 10/27/21 Ana Farias MD [address] [place] [address] [email or web address] Historical LMR Provider 08/10/17 documented as of this encounter Additional Source Comments The information contained in this document represents components of the legal health record. It is not the complete legal health record.[facility]
--- OUTSIDE RECORDS SUMMARY | 2025-06-28 17:59 | XMS_ITS | Encounter Summary ---
Author Organization [facility] Address [address] [place] [address] Phone Care Team Providers Care Rigging Helper Name Role Phone Ana Farias MD Unavailable [phone] Ana Farias MD Primary Care Provider + Encounter Details Date Type Department Care Team (Late st Contact Info) Description 04/07/2023 Procedure Pass [facility], Ct Scan - [address] [address] Social History Tobacco Use Types Packs/Day Years Used Date Smoking Tobacco: Former Cigarettes Q uit: 1956 Smokeless Tobacco: Never Alcohol Use Standard Drinks/Week Comments No 0 (1 standard drink = 0.6 oz pur e alcohol) Education Answer Date Recorded Are you interested in more education? Not on marcin e 02/13/2023 Are you concerned about learning? Not on file 02/13/2023 No 02/13/2023 No 02/13/2023 Digital Access Answer Date Recorded No 03/13/2023 No 03/13/2023 Reliable internet access at home? Not on file 03/13/2023 Device with a working camera? Not on file Sex and Gender Information Value Date Recorded [...] 10:00 AM EDT Home Care Visit Self [facility] [address] [place] [phone] Codi Powell RN [address] [place] [address] 07/04/2025 3:00 AM EDT Home Care Visit Self [facility] [address] [place] [phone] Codi Powell RN [address] [place] [address] 07/11/2025 2:00 AM EDT Home Care Visit Self [facility] [address] [place] [phone] Codi Powell RN [address] [place] [address] 07/18/2025 3:30 AM EDT Home Care Visit Self [facility] [address] [place] [phone] Codi Powell RN [address] [place] [address] 07/25/2025 1:30 AM EDT Home Care Visit Self [facility] [address] [place] [phone] Codi Powell RN [address] [place] [address] 08/01/2025 1:30 AM EDT Home Care Visit Self [facility] [address] [place] [phone] Codi Powell RN [address] [place] [address] 08/10/2025 12:30 AM EDT Appointment [facility] [address] [place], [place] [phone] Codi Powell RN [address] [place] [address] documented as of this encounter Visit Diagnoses [...] documented as of this encounter Care Teams Rigging Helper Relationship Specialty Start Date End Date Ana Farias MD [address] [place] [address] PCP - General Family Medicine 01/28/19 Ana Farias MD [address] [place] [address] Historical LMR Provider 08/10/17 documented as of this encounter Additional Source Comments The information contained in this document represents components of the legal health record. It is not the complete legal health record.[facility]
--- OUTSIDE RECORDS SUMMARY | 2025-06-28 17:59 | XMS_ITS | Encounter Summary ---
Author Organization [facility] Address [address] [place] [address] Phone Care Team Providers Care Dental Service Technician Name Role Phone Ana Farias MD Unavailable [phone] Ana Farias MD Primary Care Provider + Encounter Details Date Type Department Care Team (Late st Contact Info) Description 11/23/2024 Procedure Pass [facility], Ct Scan - [address] [id number] Social History Tobacco Use Types Packs/Day Years [...] got money to buy more. Never True 11/12/2024 Within the past 6 months the food we bought just didn't last and we didn't have enough money to get more. Never True Residential Stability Answer Date Recor ded What is your housing situation today? I have windy auguste 11/12/2024 How many times have you move d in the past 12 months? Zero (I did not move) 11/12/2024 Paying for Meds Answer Date Recorded Do you have trouble paying for medicines? No 11/12/2024 Paying Utility Bills Answer Date Record ed Do you have trouble paying your heating or elect ricity bill? No 11/12/2024 Transportation Answer Date Recorded Has the lack of transportati on kept you from medical appointments or from getting medications? No 11/12/2024 Digital Access Answer Date Recorded No 11/12/2024 Yes 11/12/2024 Do you have reliable internet access at home? Ye s 11/12/2024 Do you have a device (e.g., phone, tablet, computer) with a working camera? Yes 11/12/2024 Intimate Partner Violence Answer Date R ecorded Are you denied basic needs s uch as food, clothing, or medical care? No 11/23/2024 In the past 12 months have y ou been in a relationship with a person who hurts, threatens, or tries to control you? No 11/23/2024 Are you denied basic needs s uch as food, clothing, or medical care? No 11/23/2024 In the past 12 months have y ou been in a relationship with a person who hurts, threatens, or tries to control you? No 11/23/2024 Sex and Gender Information Value Date Recorded Sex Assigned at Male 04/07/2023 1:33 PM EDT Legal Sex Male 7:20 PM EST Gender Identity Male 04/07/2023 1:33 PM EDT Sexual Orientation Straight 04/07/2023 1: 33 PM EDT documented as of this encounter Functional Status * Calculated C-SSRS Risk Score (Lifetime/Recent) Answer Date of Assessment Author No Risk Indicated 11/23/2024 10:13 AM Joann Sorensen RN * [place] Suicide Severity Rating Scale (Screener/Recent Self-Report) Question Answer Date of Assessment Author 1. Wish to be (Past 1 Month) No 025 10:13 AM Joann Brooks RN 2. Non-Specific Active Suici shayy Thoughts (Past 1 Month) No 11/23/2024 10:13 AM Roxana Brooks RN 6. Suicidal Behavior (Lifetime) No 10:13 AM Joann Brooks RN documented as of this encounter Plan of Treatment Upcoming Encounters Date Type Department Care Team (Late st Contact Info) Description 07/01/2025 10:00 AM EDT Home Care Visit Self [facility] [address] [place] [phone] Codi Powell RN [address] [place] [address] 07/04/2025 3:00 AM EDT Home Care Visit Self [facility] [address] [place] [phone] Codi Powell RN [address] [place] [address] 07/11/2025 2:00 AM EDT Home Care Visit Self [facility] [address] [place] [phone] Codi Powell RN [address] [place] [address] 07/18/2025 3:30 AM EDT Home Care Visit Self [facility] [address] [place] [phone] Codi Powell RN [address] [place] [address] 07/25/2025 1:30 AM EDT Home Care Visit Self [facility] [address] [place] [phone] oCdi Powell RN [address] [place] [address] 08/01/2025 1:30 AM EDT Home Care Visit [facility] [address] [place], [place] [phone] Codi Powell RN [address] [place] [address] 08/10/2025 12:30 AM EDT Appointment [facility] [address] [place], [place] [phone] Codi Powell RN [address] [place] [address] documented as of this encounter Visit Diagnoses Not on filedocumented in this encounter Additional Health Concerns Infection Onset Date Last Indicated Resolved Time CoV-Risk 11/23/2024 11/23/2024 12/04/2024 1:21 AM EST CoV-Risk Comment:Per note documentation 04/09/2025 04/09/2025 2:50 PM EDT 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 CoV-Risk Comment:Per note documentation 04/29/2025 04/29/2025 7:48 PM EDT Assessment Noted Time PHQ-9 Depression Total Score: 11 021 11:25 AM EST PHQ-2 Depression Total Score: 0 09/07/20 21 11:25 AM EST documented as of this encounter Care Teams Dental Service Technician Relationship Specialty Start Date End Date Ana Farias MD [address] [place] [address] PCP - General Family Medicine 01/28/19 Ana Farias MD [address] [place] [address] Historical LMR Provider 08/10/17 documented as of this encounter Additional Source Comments The information contained in this document represents components of the legal health record. It is not the complete legal health record.[facility]
--- OUTSIDE RECORDS SUMMARY | 2025-06-28 17:59 | XMS_ITS | Encounter Summary ---
Author Organization [facility] Address [facility] [address] [place] [address] Phone Care Team Providers Care Lithographic Camera Operator Name Role Phone Arjun Zhou MD Unavailable [phone] Ryan Clemente MD Unavailable Ana Farias MD Unavailable [phone] Ana Farias MD Primary Care Provider + Encounter Details Date Type Department Care Team (Latest Contact Info) Description 03/29/2021 Transcribe Orders Virtual Department [address] [place] [address] Lindsay Ayala MD [address] [place] [address], [address] [place] [address] Chronic kidney disease (CKD), stage IV (severe) (Primary Dx) Social History Tobacco Use Types [...] Care Visit Self [facility] [address] [place] [phone] Codi Powell RN [address] [place] [address] 07/04/2025 3:00 AM EDT Home Care Visit Self [facility] [address] [place] [phone] Codi Powell RN [address] [place] [address] 07/11/2025 2:00 AM EDT Home Care Visit Self [facility] [address] [place] [phone] Codi Powell RN [address] [place] [address] 07/18/2025 3:30 AM EDT Home Care Visit Self [facility] [address] [place] [phone] Codi Powell RN [address] [place] [address] 07/25/2025 1:30 AM EDT Home Care Visit [facility] [address] [place] [phone] Codi Powell RN [address] [place] [address] 08/01/2025 1:30 AM EDT Home Care Visit Self [facility] [address] [place] [phone] Codi Powell RN [address] [place] [address] 08/10/2025 12:30 AM EDT Appointment [facility] [address] [place], [place] [phone] Codi Powell RN [address] [place] [address] documented as of this encounter Results * US Kidneys (05/03/2021 10:36 AM EDT) Anatomical Region Laterality Modality Abdomen, Kidney Ultrasound 05/03/2021 11:0 0 AM EDT Impressions 05/03/2021 11:08 AM EDT 1. Diffuse cortical thinning of the kidneys. No evidence of obstructive uropathy. 2. Multiple bilateral renal cysts with benign characteristics. 10 mm exophytic mass in the lower pole of the right kidney containing internal echoes. This may be a smaller than on 12/09/2008 and potentially could represent a complicated cyst. This could be followed by ultrasound in 12 months. Narrative 05/03/2021 11:08 AM EDT HISTORY: Renal insufficiency, stage IV chronic kidney disease COMPARISON: CT abdomen 01/05/2010, ultrasound kidneys 12/09/2008 FINDINGS: Right kidney: Diffuse cortical thinning. The renal cortex is mildly hyperechoic diffusely. Kidney measures 10.3 cm in the long axis. Multiple cysts with benign characteristics within the kidney, largest measuring 3.7 cm in maximal diameter, larger than on prior older imaging. Located in the lower pole is an exophytic hypoechoic mass measuring 10 mm x 9 mm x 9 mm. A similar lesion in a similar location is demonstrated on the ultrasound of 12/09/2008. Measurements, however, or larger on 12/09/2008 (2.0 cm x 2.0 cm x 1.7 cm). No evidence of pelvocaliectasis. No visible calculi. Left kidney: Diffuse cortical thinning. Kidney measures 11.2 cm in the long axis similar the previous ultrasound. Multiple cysts with benign characteristics, the largest measuring 8.2 cm in maximal diameter. No evidence of solid masses. No evidence of pelvocaliectasis. No evidence of calculi. Procedure Note Jose Guadalupe Wilburn MD - 05/03/2021 HISTORY: Renal insufficiency, stage IV chronic kidney disease COMPARISON: CT abdomen 01/05/2010, ultrasound kidneys 12/09/2008 FINDINGS: Right kidney: Diffuse cortical thinning. The renal cortex is mildlyhyperechoic diffusely. Kidney measures 10.3 cm in the long axis. Multiplecysts with benign characteristics within the kidney, largest measuring 3.7cm in maximal diameter, larger than on prior older imaging. Located in thelower pole is an exophytic hypoechoic mass measuring 10 mm x 9 mm x 9 mm.A similar lesion in a similar location is demonstrated on the ultrasoundof 12/09/2008. Measurements, however, or larger on 12/09/2008 (2.0 cm x 2.0cm x 1.7 cm). No evidence of pelvocaliectasis. No visible calculi. Left kidney: Diffuse cortical thinning. Kidney measures 11.2 cm in thelong axis similar the previous ultrasound. Multiple cysts with benigncharacteristics, the largest measuring 8.2 cm in maximal diameter. Noevidence of solid masses. No evidence of pelvocaliectasis. No evidence ofcalculi. IMPRESSION: 1. Diffuse cortical thinning of the kidneys. No evidence of obstructiveuropathy. 2. Multiple bilateral renal cysts with benign characteristics. 10 mmexophytic mass in the lower pole of the right kidney containing internalechoes. This may be a smaller than on 12/09/2008 and potentially couldrepresent a complicated cyst. This could be followed by ultrasound in 12months. Lindsay Ayala MD [facility] Final Result documented in this encounter Visit Diagnoses Diagnosis Chronic kidney disease (CKD), stage IV (severe)- Primary Chronic kidney disease, Stage IV (severe) Chronic kidney disease (CKD), stage IV (severe) Chronic kidney disease, Stage IV (severe) documented in this encounter Additional Health Concerns [...] documented as of this encounter Care Teams Lithographic Camera Operator Relationship Specialty Start Date End Date Ana Farias MD [address] [place] [address] [email or web address] PCP - General Family Medicine 01/28/19 Arjun Zhou MD [address] [place] [address] Historical LMR Provider 08/10/17 Ryan Clemente MD [address] [place] [address] [email or web address] Historical LMR Provider 08/10/17 10/27/21 Ana Fraias MD [address] [place] [address] [email or web address] Historical LMR Provider 08/10/17 documented as of this encounter Additional Source Comments The information contained in this document represents components of the legal health record. It is not the complete legal health record.[facility]
--- OUTSIDE RECORDS SUMMARY | 2025-06-28 17:59 | XMS_ITS | Encounter Summary ---
Author Organization [facility] Address [address] [place] [address] [place] [address] Phone Care Team Providers Care Undraped Artist Model Name Role Phone Arjun Zhou MD Unavailable [phone] Ryan Clemente MD Unavailable [phone] Ana Farias MD Unavailable [phone] Ana Farias MD Primary Care Provider + Encounter Details Date Type Department Care Team (Late Contact Info) Description 05/04/2021 Ancillary Orders Virtual Department [address] [place] [address] Darshan Seay PA [address] [place] [address] Neck mass Social History Tobacco Use Types Packs/Day Years [...] Visit Self [facility] [address] [place] [phone] Codi Powell RN [address] [place] [address] [email or web address] 07/04/2025 3:00 AM EDT Home Care Visit Self [facility] [address] [place] [phone] Codi Powell RN [address] [place] [address] [email or web address] 07/11/2025 2:00 AM EDT Home Care Visit Self [facility] [address] [place] [phone] Codi Powell RN [address] [place] [address] [email or web address] 07/18/2025 3:30 AM EDT Home Care Visit Self [facility] [address] [place] [phone] Codi Powell RN [address] [place] [address] [email or web address] 07/25/2025 1:30 AM EDT Home Care Visit [facility] [address] [place] [phone] Codi Powell RN [address] [place] [address] [email or web address] 08/01/2025 1:30 AM EDT Home Care Visit [facility] [address] [place] [phone] Codi Powell RN [address] [place] [address] 08/10/2025 12:30 AM EDT Appointment [facility] [address] [place] [phone] Codi Powell RN [address] [place] [address] [email or web address] documented as of this encounter Results * US Soft Tissues of Head and Neck (Non-Thyroid) (05/10/2021 3:24 PM EDT) Anatomical Region Laterality Modality Neck, Head Ultrasound 05/10/2021 3:26 PM EDT Impressions 05/10/2021 3:28 PM EDT 2 cm right lower cervical complicated cystic mass. Etiology is uncertain. This may represent an abnormally enlarged cervical lymph node. CT neck is recommended. Narrative 05/10/2021 3:28 PM EDT HISTORY: As above. COMPARISON: None. LIMITED SOFT TISSUE ULTRASOUND FINDINGS: Imaging obtained of the lower right cervical region palpable lump. There is a 2 x 0.9 x 1.4 cm complex cystic mass with low-level echoes. Enhanced through-transmission. No vascularity. Procedure Note Sae Romero MD - 05/10/2021 HISTORY: As above. COMPARISON: None. LIMITED SOFT TISSUE ULTRASOUND FINDINGS: Imaging obtained of the lower right cervical region palpable lump. There is a 2 x 0.9 x 1.4 cm complex cystic mass with low-level echoes.Enhanced through-transmission. No vascularity. IMPRESSION: 2 cm right lower cervical complicated cystic mass. Etiology is uncertain.This may represent an abnormally enlarged cervical lymph node. CT neck isrecommended. us Darshan KRAUS IMG US HEAD/NECK NON THY ROID Final Result documented in this encounter Visit Diagnoses Diagnosis Neck mass Swelling, mass, or lump in head and neck Neck mass Swelling, mass, or lump in head and neck documented in this encounter Additional Health Concerns [...] documented as of this encounter Care Teams Undraped Artist Model Relationship Specialty Start Date End Date Ana Farias MD [address] [place] [address] [email or web address] PCP - General Family Medicine 01/28/19 Arjun Zhou MD [address] [place] [address] Historical LMR Provider 08/10/17 Ryan Clemente MD [address] [place] [address] [address] [place] [address] [email or web address] Historical LMR Provider 08/10/17 10/27/21 Ana Farias MD [address] [place] [address] ([email or web address]) [email or web address] Historical LMR Provider 08/10/17 documented as of this encounter Additional Source Comments The information contained in this document represents components of the legal health record. It is not the complete legal health record.[facility]
--- OUTSIDE RECORDS SUMMARY | 2025-06-28 17:59 | XMS_ITS | Encounter Summary ---
Author Organization [facility] Address [address] [facility] [address] [place] [address] Phone Care Team Providers Care Artist Suspect Name Role Phone Ana Farias MD Unavailable [phone] Ana Farias MD Primary Care Provider + Encounter Details Date Type Department Care Team (Late st Contact Info) Description 06/23/2025 Episode Documentatio n Update [facility] [address] [place] [address] Tiff Pelletier [address] [place] [address] [email or web address] Social History Tobacco Use Types Packs/Day Years [...] housing situation today? I have windy auguste 04/29/2025 How many times have you move [...] Visit [facility] [address] [place] [address] Codi Powell RN [address] [place] [address] 07/04/2025 3:00 AM EDT Home Care Visit Self [facility] [address] [place] [address] Codi Powell RN [address] [place] [address] 07/11/2025 2:00 AM EDT Home Care Visit Self [facility] [address] [place] [address] Codi Powell RN [address] [place] [address] 07/18/2025 3:30 AM EDT Home Care Visit [facility] [address] [place] [phone] Codi Powell RN [address] [place] [address] 07/25/2025 1:30 AM EDT Home Care Visit Self [facility] [address] [place] [phone] Codi Powell RN [address] [place] [address] 08/01/2025 1:30 AM EDT Home Care Visit [facility] [address] [place] [address] Codi Powell RN [address] [place] [address] 08/10/2025 12:30 AM EDT Appointment [facility] [address] [place] [phone] Codi Powell RN [address] [place] [address] documented as of this encounter Visit Diagnoses Not on filedocumented in this encounter Additional Health Concerns 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 Historical LMR Provider 08/10/17 documented as of this encounter Additional Source Comments The information contained in this document represents components of the legal health record. It is not the complete legal health record.[facility]
--- OUTSIDE RECORDS SUMMARY | 2025-06-28 17:59 | XMS_ITS | Encounter Summary ---
Author Organization [facility] Address [address] [place] [address] Phone Care Team Providers Care Tractor Trailer Moving Van Driver Name Role Phone Ana Farias MD Unavailable [phone] Ana Farias MD Primary Care Provider + Encounter Details Date Type Department Care Team (Late st Contact Info) Description 11/11/2024 Transcribe Orders [facility] [address] [place] [address] Raj Balbuena MD [address] [facility] [address], [address] [place] [address] [email or web address] Social History Tobacco Use Types Packs/Day Years [...] housing situation today? I have windy sing 11/12/2024 How many times have you move [...] as food, clothing, or medical care? No 11/12/2024 In the past 12 months have y ou been in a relationship with a person who hurts, threatens, or tries to control you? No 11/12/2024 Are you denied basic needs s uch as food, clothing, or medical care? No 11/12/2024 In the past 12 months have y ou been in a relationship with a person who hurts, threatens, or tries to control you? No 11/12/2024 Sex and Gender Information Value Date Recorded Sex Assigned at Male 04/07/2023 1:33 PM EDT Legal Sex Male 7:20 PM EST Gender Identity Male 04/07/2023 1:33 PM EDT Sexual Orientation Straight 04/07/2023 1: 33 PM EDT documented as of this encounter Functional Status * Calculated C-SSRS Risk Score (Lifetime/Recent) Answer Date of Assessment Author No Risk Indicated 11/12/2024 9:17 AM Elyssa TejadaYAMILE * [place] Suicide Severity Rating Scale (Screener/Recent Self-Report) Question Answer Date of Assessment Author 1. Wish to be (Past 1 Month) No 025 9:17 AM Elyssa Tejada RN 2. Non-Specific Active Suici shayy Thoughts (Past 1 Month) No 11/12/2024 9:17 AM Elyssa Tejada , YAMILE 6. Suicidal Behavior (Lifetime) No 9:17 AM Elyssa Tejada RN documented as of this encounter Plan of Treatment Upcoming Encounters Date Type Department Care Team (Late st Contact Info) Description 07/01/2025 10:00 AM EDT Home Care Visit Self [facility] [address] [place] [phone] Codi Powell RN [address] [place] [address] [email or web address] 07/04/2025 3:00 AM EDT Home Care Visit Self [facility] [address] [place] [phone] Codi Powell RN [address] [place] [address] [email or web address] 07/11/2025 2:00 AM EDT Home Care Visit Self [facility] [address] [place] [phone] Codi Powell RN [address] [place] [address] 07/18/2025 3:30 AM EDT Home Care Visit [facility] [address] [place] [phone] Codi Powell RN [address] [place] [address] [email or web address] 07/25/2025 1:30 AM EDT Home Care Visit [facility] [address] [place] [phone] Codi Powell RN [address] [place] [address] 08/01/2025 1:30 AM EDT Home Care Visit [facility] [address] [place], [place] [phone] Codi Powell RN [address] [place] [address] 08/10/2025 12:30 AM EDT Appointment [facility] [address] [place], [place] [phone] Codi Powell RN [address] [place] [address] documented as of this encounter Visit Diagnoses [...] documented as of this encounter Care Teams Tractor Trailer Moving Van Driver Relationship Specialty Start Date End Date Ana Farias MD [address] [place] [address] PCP - General Family Medicine 01/28/19 Ana Farias MD [address] [place] [address] [email or web address] Historical LMR Provider 08/10/17 documented as of this encounter Additional Source Comments The information contained in this document represents components of the legal health record. It is not the complete legal health record.[facility]
--- OUTSIDE RECORDS SUMMARY | 2025-06-28 17:59 | XMS_ITS | Encounter Summary ---
Author Organization [facility] Address [address] [place] [address] Phone Care Team Providers Care Supervisor Eng[address] Road Name Role Phone Ana Farias MD Unavailable [phone] Ana Farias MD Primary Care Provider + Encounter Details Date Type Department Care Team (Late st Contact Info) Description 11/21/2023 Procedure Pass [facility], Ct Scan - [address] [id number] Social History Tobacco Use Types Packs/Day Years Used Date Smoking Tobacco: Former Cigarettes Q uit: 1956 Smokeless Tobacco: Never Alcohol Use Standard Drinks/Week Comments No 0 (1 standard drink = 0.6 oz pur e alcohol) Home Health Assessment: Transportation Answer Date Recorded Lack of Transportation (Medical) No 11/08/2023 Lack of Transportation (Non-Medical) No 11/08/2023 Patient Unable or Declines to Respond No 11/08/2023 Education Answer Date Recorded Are you interested [...] Date of Assessment Author No Risk Indicated 11/21/2023 11:15 PM Matthew Ramos, YAMILE * [place] Suicide Severity Rating Scale (Screener/Recent Self-Report) Question Answer Date of Assessment Author 1. Wish to be (Past 1 Month) No 024 11:15 PM Matthew Ramos RN 2. Non-Specific Active Suici shayy Thoughts (Past 1 Month) No 11/21/2023 11:15 PM Matthew Ramos RN 6. Suicidal Behavior (Lifetime) No 11:15 PM Matthew Ramos RN documented as of this encounter Plan of Treatment Upcoming Encounters Date Type Department Care Team (Late st Contact Info) Description 07/01/2025 10:00 AM EDT Home Care Visit [facility] [address] [place], [place] [phone] Codi Powell RN [address] [place] [address] 07/04/2025 3:00 AM EDT Home Care Visit [facility] [address] [place], [place] [phone] Codi Powell RN [address] [place] [address] 07/11/2025 2:00 AM EDT Home Care Visit Self [facility] [address] [place], [place] [phone] Codi Powell RN [address] [place] [address] 07/18/2025 3:30 AM EDT Home Care Visit Self [facility] [address] [place] [address] Codi Powell RN [address] [place] [address] 07/25/2025 1:30 AM EDT Home Care Visit [facility] [address] [place] [phone] Codi Powell RN [address] [place] [address] 08/01/2025 1:30 AM EDT Home Care Visit [facility] [address] [place] [phone] Codi Powell RN [address] [place] [address] 08/10/2025 12:30 AM EDT Appointment [facility] [address] [place] [phone] Codi Powell RN [address] [place] [address] documented as of this encounter Visit Diagnoses [...] as of this encounter Care Teams Supervisor Engines Road Relationship Specialty Start Date End Date Ana Farias MD [address] [place] [address] PCP - General Family Medicine 01/28/19 Ana Farias MD [address] [place] [address] Historical LMR Provider 08/10/17 documented as of this encounter Additional Source Comments The information contained in this document represents components of the legal health record. It is not the complete legal health record.[facility]
--- OUTSIDE RECORDS SUMMARY | 2025-06-28 17:59 | XMS_ITS | Encounter Summary ---
Author Organization [facility] Address [address] [facility] [address] [place] [address] Phone Care Team Providers Care Director Of Diagnostic Imaging Name Role Phone Ana Farias MD Unavailable [phone] Ana Farias MD Primary Care Provider + Encounter Details Date Type Department Care Team (Late Contact Info) Description 02/01/2022 Procedure Pass [facility], Ct Scan - Main [address] [id number] Social History Tobacco Use Types Packs/Day Years [...] 07/01/2025 10:00 AM EDT Home Care Visit [facility] [address] [place] [phone] Codi Powell RN [address] [place], [place] [phone] [email or web address] 07/04/2025 3:00 AM EDT Home Care Visit Self [facility] [address] [place] [phone] Codi Powell RN [address] [place] [address] 07/11/2025 2:00 AM EDT Home Care Visit Self [facility] [address] [place] [phone] Codi Powell RN [address] [place] [address] [email or web address] 07/18/2025 3:30 AM EDT Home Care Visit [facility] [address] [place] [phone] Codi Powell RN [address] [place] [address] [email or web address] 07/25/2025 1:30 AM EDT Home Care Visit [facility] [address] [place] [phone] Codi Powell RN [address] [place] [address] [email or web address] 08/01/2025 1:30 AM EDT Home Care Visit [facility] [address] [place] [phone] Codi Powell RN [address] [place] [address] [email or web address] 08/10/2025 12:30 AM EDT Appointment [facility] [address] [place] [phone] Codi Powell RN [address] [place] [address] [email or web address] documented as of this encounter Visit Diagnoses [...] documented as of this encounter Care Teams Director Of Diagnostic Imaging Relationship Specialty Start Date End Date Ana Farias MD [address] [place] [address] [email or web address] PCP - General Family Medicine 01/28/19 Ana Farias MD [address] [place] [address] [email or web address] Historical LMR Provider 08/10/17 documented as of this encounter Additional Source Comments The information contained in this document represents components of the legal health record. It is not the complete legal health record.[facility]
--- OUTSIDE RECORDS SUMMARY | 2025-06-28 17:59 | XMS_ITS | Encounter Summary ---
Author Organization [facility] Address [address] [place] [address] Phone Care Team Providers Care Big Machine Consultant Name Role Phone Ana Farias MD Unavailable [phone] Ana Farias MD Primary Care Provider + Encounter Details Date Type Department Care Team (Late st Contact Info) Description 04/09/2025 Procedure Pass [facility], Ct Scan - [address] [id number] Social History Tobacco Use Types Packs/Day Years Used Date Smoking Tobacco: Former Cigarettes Q uit: 1956 Smokeless Tobacco: Never Alcohol Use Standard Drinks/Week Comments No 0 (1 standard drink = 0.6 oz pur e alcohol) Home Health Assessment: Transportation Answer Date Recorded Lack of Transportation (Medical) No 01/22/2025 Lack of Transportation (Non-Medical) No 01/22/2025 Patient Unable or Declines to Respond No 01/22/2025 Education Answer Date Recorded Are you interested [...] Visit [facility] [address] [place] [phone] Codi Powell RN [address] [place] [address] 07/04/2025 3:00 AM EDT Home Care Visit Self [facility] [address] [place] [phone] Codi Powell RN [address] [place] [address] 07/11/2025 2:00 AM EDT Home Care Visit Self [facility] [address] [place] [phone] Codi Powell RN [address] [place] [address] 07/18/2025 3:30 AM EDT Home Care Visit Self [facility] [address] [place] [phone] Codi Powell RN [address] [place] [address] 07/25/2025 1:30 AM EDT Home Care Visit Self [facility] [address] [place] [phone] Codi Powell RN [address] [place] [address] 08/01/2025 1:30 AM EDT Home Care Visit Self [facility] [address] [place] [phone] Codi Powell RN [address] [place] [address] 08/10/2025 12:30 AM EDT Appointment Self [facility] [address] [place] [phone] Codi Powell RN [address] [place] [address] documented as of this encounter Visit Diagnoses Not on filedocumented in this encounter Additional Health Concerns Infection Onset Date Last Indicated Resolved Time CoV-Risk Comment:Per note documentation 04/09/2025 04/09/2025 2:50 PM EDT 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 CoV-Risk Comment:Per note documentation 04/29/2025 04/29/2025 7:48 PM EDT Assessment Noted Time PHQ-9 Depression Total Score: 11 021 11:25 AM EST PHQ-2 Depression Total Score: 0 09/07/20 21 11:25 AM EST documented as of this encounter Care Teams Big Machine Consultant Relationship Specialty Start Date End Date Ana Farias MD [address] [place] [address] PCP - General Family Medicine 01/28/19 Ana Farias MD [address] [place] [address] Historical LMR Provider 08/10/17 documented as of this encounter Additional Source Comments The information contained in this document represents components of the legal health record. It is not the complete legal health record.[facility]
--- OUTSIDE RECORDS SUMMARY | 2025-06-28 17:59 | XMS_ITS | Encounter Summary ---
Author Organization [facility] Address [address] [place] [address] Phone Care Team Providers Care Moth Exterminator Name Role Phone Ana Farias MD Unavailable [phone] Ana Farias MD Primary Care Provider + Encounter Details Date Type Department Care Team (Late st Contact Info) Description 01/31/2022 Procedure Pass [facility], Ct Scan - [address] [id number] Social History Tobacco Use Types Packs/Day Years [...] Date of Assessment Author No Risk Indicated 01/31/2022 11:02 PM EDT Nissa Gordillo, RN * [place] Suicide Severity Rating Scale (Screener/Recent Self-Report) Question Answer Date of Assessment Author 1. Wish to be (Past 1 Month) No 022 11:02 PM EDT Nissa Domínguez, YAMILE 2. Non-Specific Active Suici shayy Thoughts (Past 1 Month) No 01/31/2022 11:02 PM EDT Nissa Domínguez RN 6. Suicidal Behavior (Lifetime) No 11:02 PM EDT Nissa Domínguez RN documented as of this encounter Plan of Treatment Upcoming Encounters Date Type Department Care Team (Late st Contact Info) Description 07/01/2025 10:00 AM EDT Home Care Visit Self [facility] [address] [place] [phone] Codi Powell RN [address] [place] [address] [email or web address] 07/04/2025 3:00 AM EDT Home Care Visit [facility] [address] [place] [phone] Codi Powell RN [address] [place] [address] [email or web address] 07/11/2025 2:00 AM EDT Home Care Visit Self [facility] [address] [place] [phone] Codi Powell RN [address] [place] [address] [email or web address] 07/18/2025 3:30 AM EDT Home Care Visit Self [facility] [address] [place] [phone] Codi Powell RN [address] [place] [address] [email or web address] 07/25/2025 1:30 AM EDT Home Care Visit Self [facility] [address] [place] [phone] Codi Powell RN [address] [place] [address] [email or web address] 08/01/2025 1:30 AM EDT Home Care Visit [facility] [address] [place], [place] [phone] Codi Powlel RN [address] [place] [address] [email or web address] 08/10/2025 12:30 AM EDT Appointment [facility] [address] [place], [place] [phone] Codi Powell RN [address] [place] [address] [email or web address] documented as of this encounter Visit Diagnoses [...] Noted Time PHQ-9 Depression Total Score: 11 09/07/ 021 11:25 AM EST PHQ-2 Depression Total Score: 0 09/07/20 21 11:25 AM EST documented as of this encounter Care Teams Moth Exterminator Relationship Specialty Start Date End Date Ana Farias MD [address] [place] [address] [email or web address] PCP - General Family Medicine 01/28/19 Ana Farias MD [address] [place] [address] [email or web address] Historical LMR Provider 08/10/17 documented as of this encounter Additional Source Comments The information contained in this document represents components of the legal health record. It is not the complete legal health record.[facility]
--- OUTSIDE RECORDS SUMMARY | 2025-06-28 17:59 | XMS_ITS | Encounter Summary ---
Author Organization [facility] Address [address] [place] [address] Phone Care Team Providers Care Field Marketing Manager Name Role Phone Ana Farias MD Unavailable [phone] Ana Farias MD Primary Care Provider + Encounter Details Date Type Department Care Team (Late st Contact Info) Description 04/11/2025 Procedure Pass [facility] [address] [place] [address] Social History Tobacco Use Types Packs/Day Years [...] Visit [facility] [address] [place] [phone] Codi Powell RN [address] [place] [address] 07/04/2025 3:00 AM EDT Home Care Visit Self [facility] [address] [place] [phone] Coid Powell RN [address] [place] [address] 07/11/2025 2:00 AM EDT Home Care Visit Self [facility] [address] [place] [address] Codi Powell RN [address] [place] [address] 07/18/2025 3:30 AM EDT Home Care Visit [facility] [address] [place] [phone] Codi Powell RN [address] [place] [address] 07/25/2025 1:30 AM EDT Home Care Visit Self [facility] [address] [place] [phone] Codi Powell RN [address] [place] [address] 08/01/2025 1:30 AM EDT Home Care Visit [facility] [address] [place] [phone] Codi Powell RN [address] [place] [address] 08/10/2025 12:30 AM EDT Appointment Self [facility] [address] [place] [phone] Codi Powell RN [address] [place] [address] documented as of this encounter Visit Diagnoses [...] documented as of this encounter Care Teams Field Marketing Manager Relationship Specialty Start Date End Date Ana Farias MD [address] [place] [address] PCP - General Family Medicine 01/28/19 Ana Farias MD [address] [place] [address] Historical LMR Provider 08/10/17 documented as of this encounter Additional Source Comments The information contained in this document represents components of the legal health record. It is not the complete legal health record.[facility]
--- OUTSIDE RECORDS SUMMARY | 2025-06-28 17:59 | XMS_ITS | Encounter Summary ---
Author Organization [facility] Address [address] [place] [address] Phone Care Team Providers Care Traffic Signal Supervisor Maintenance Name Role Phone Ana Farias MD Unavailable [phone] Ana Farias MD Primary Care Provider + Encounter Details Date Type Department Care Team (Late st Contact Info) Description 01/31/2022 Procedure Pass [facility], Ct Scan - [address] [id number] Social History Tobacco Use Types Packs/Day Years [...] 11:02 PM EDT Nissa Gordillo, RN * [place] Suicide Severity Rating Scale (Screener/Recent Self-Report) Question [...] 10:00 AM EDT Home Care Visit Self [facility] [address] [place] [phone] Codi Powell RN [address] [place] [address] [email or web address] 07/04/2025 3:00 AM EDT Home Care Visit [facility] [address] [place] [phone] Codi Powell RN [address] [place] [address] [email or web address] 07/11/2025 2:00 AM EDT Home Care Visit Self [facility] [address] [place] [phone] Codi Powell RN [address] [place] [address] [email or web address] 07/18/2025 3:30 AM EDT Home Care Visit Self [facility] [address] [place] [phone] Codi Powell RN [address] [place] [address] [email or web address] 07/25/2025 1:30 AM EDT Home Care Visit Self [facility] [address] [place] [phone] Codi Powell RN [address] [place] [address] [email or web address] 08/01/2025 1:30 AM EDT Home Care Visit [facility] [address] [place], [place] [phone] Codi Powell RN [address] [place] [address] [email or web address] 08/10/2025 12:30 AM EDT Appointment [facility] [address] [place], [place] [phone] Codi Powell RN [address] [place] [address] [email or web address] documented as of this encounter Visit Diagnoses [...] documented as of this encounter Care Teams Traffic Signal Supervisor Maintenance Relationship Specialty Start Date End Date Ana Farias MD [address] [place] [address] [email or web address] PCP - General Family Medicine 01/28/19 Ana Farias MD [address] [place] [address] [email or web address] Historical LMR Provider 08/10/17 documented as of this encounter Additional Source Comments The information contained in this document represents components of the legal health record. It is not the complete legal health record.[facility]
--- OUTSIDE RECORDS SUMMARY | 2025-06-28 17:59 | XMS_ITS | Encounter Summary ---
Author Organization [facility] Address [address] [place] [address] Phone Care Team Providers Care Net Developer Consultant Name Role Phone Ana Farias MD Unavailable [phone] Ana Farias MD Primary Care Provider + Encounter Details Date Type Department Care Team (Late st Contact Info) Description 10/31/2024 Procedure Pass [facility], [address] [phone] Social History Tobacco Use Types Packs/Day Years [...] Visit [facility] [address] [place] [phone] Codi Powell RN [address] [place] [address] 07/04/2025 3:00 AM EDT Home Care Visit Self [facility] [address] [place] [address] Codi Powell RN [address] [place] [address] 07/11/2025 2:00 AM EDT Home Care Visit Self [facility] [address] [place] [address] Codi Powell RN [address] [place] [address] 07/18/2025 3:30 AM EDT Home Care Visit Self [facility] [address] [place] [phone] Codi Powell RN [address] [place] [address] 07/25/2025 1:30 AM EDT Home Care Visit Self [facility] [address] [place] [phone] Codi Powell RN [address] [place] [address] 08/01/2025 1:30 AM EDT Home Care Visit [facility] [address] [place] [phone] Codi Powell RN [address] [place] [address] 08/10/2025 12:30 AM EDT Appointment Self [facility] [address] [place] [phone] Codi Powell RN [address] [place] [address] documented as of this encounter Visit Diagnoses [...] documented as of this encounter Care Teams Net Developer Consultant Relationship Specialty Start Date End Date Ana Farias MD [address] [place] [address] [email or web address] PCP - General Family Medicine 01/28/19 Ana Farias MD [address] [place] [address] [email or web address] Historical LMR Provider 08/10/17 documented as of this encounter Additional Source Comments The information contained in this document represents components of the legal health record. It is not the complete legal health record.[facility]
--- OUTSIDE RECORDS SUMMARY | 2025-06-28 18:00 | XMS_ITS | Encounter Summary ---
Author Organization [facility] Address [address] [facility] [address] [facility] [address] [place] [address] Phone Care Team Providers Care Observatory Director Name Role Phone Ana Farias MD Unavailable [phone] Ana Farias MD Primary Care Provider + Encounter Details Date Type Department Care Team (Late st Contact Info) Description 05/03/2025 Home Health Resumption of Care Planning Self [facility] [address] [place] [phone] Kady Nath, RN [address] [place] [address] [email or web address] Social History Tobacco Use Types Packs/Day Years [...] AM EDT Home Care Visit [facility] [address] [place] [address] Codi Powell RN [address] [place] [address] 07/04/2025 3:00 AM EDT Home Care Visit Self [facility] [address] [place] [address] Codi Powell RN [address] [place] [address] 07/11/2025 2:00 AM EDT Home Care Visit Self [facility] [address] [place] [phone] Codi Powell RN [address] [place] [address] 07/18/2025 3:30 AM EDT Home Care Visit Self [facility] [address] [place] [phone] Codi Powell RN [address] [place] [address] 07/25/2025 1:30 AM EDT Home Care Visit Self [facility] [address] [place] [phone] Codi Powell RN [address] [place] [address] 08/01/2025 1:30 AM EDT Home Care Visit Self [facility] [address] [place] [address] Codi Powell RN [address] [place] [address] 08/10/2025 12:30 AM EDT Appointment Self [facility] [address] [place] [phone] Codi Powell RN [address] [place] [address] [email or web address] documented as of this encounter Visit Diagnoses Not on filedocumented in this encounter Additional Health Concerns 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 Assessment Noted Time PHQ-9 Depression Total Score: 11 021 11:25 AM EST PHQ-2 Depression Total Score: 0 09/07/20 21 11:25 AM EST documented as of this encounter Care Teams Observatory Director Relationship Specialty Start Date End Date Ana Farias MD [address] [place] [phone] PCP - General Family Medicine 01/28/19 Ana Farias MD [address] [place] [address] [email or web address] Historical LMR Provider 08/10/17 documented as of this encounter Additional Source Comments The information contained in this document represents components of the legal health record. It is not the complete legal health record.[facility]
--- OUTSIDE RECORDS SUMMARY | 2025-06-28 18:00 | XMS_ITS | Encounter Summary ---
Author Organization [facility] Address [address] [place] [address] Phone Care Team Providers Care Market Analysis Director Name Role Phone Ana Farias MD Unavailable Ana Farias MD Primary Care Provider + Encounter Details Date Type Department Care Team (Late st Contact Info) Description 04/29/2025 Procedure Pass [facility], Ct Scan - [address] [id number] Social History Tobacco Use Types Packs/Day Years [...] Date of Assessment Author No Risk Indicated 04/29/2025 1:02 AM EDT Lynn Alberts RN * [place] Suicide Severity Rating Scale (Screener/Recent Self-Report) Question Answer Date of Assessment Author 1. Wish to be (Past 1 Month) No 025 1:02 AM EDT Lynn Parrish RN 2. Non-Specific Active Suici shayy Thoughts (Past 1 Month) No 04/29/2025 1:02 AM EDT Machelle Parrish ra, RN 6. Suicidal Behavior (Lifetime) No 1:02 AM EDT Lynn Parrish RN documented as of this encounter Plan of Treatment Upcoming Encounters Date Type Department Care Team (Late st Contact Info) Description 07/01/2025 10:00 AM EDT Home Care Visit Self [facility] [address] [place] [phone] Codi Powell RN [address] [place] [address] [email or web address] 07/04/2025 3:00 AM EDT Home Care Visit Self [facility] [address] [place] [phone] Codi Powell RN [address] [place] [phone] [email or web address] 07/11/2025 2:00 AM EDT Home Care Visit Self [facility] [address] [place] [phone] Codi Powell RN [address] [place] [phone] [email or web address] 07/18/2025 3:30 AM EDT Home Care Visit Self [facility] [address] [place] [phone] Codi Powell RN [address] [place] [address] 07/25/2025 1:30 AM EDT Home Care Visit Self [facility] [address] [place] [phone] Codi Powell RN [address] [place] [address] 08/01/2025 1:30 AM EDT Home Care Visit [facility] [address] [place] [address] Codi Powell RN [address] [place] [address] 08/10/2025 12:30 AM EDT Appointment [facility] [address] [place], [place] [phone] Codi Powell RN [address] [place] [address] documented as of this encounter Visit Diagnoses [...] documented as of this encounter Care Teams Market Analysis Director Relationship Specialty Start Date End Date Ana Farias MD [address] [place] [phone] PCP - General Family Medicine 01/28/19 Ana Farias MD [address] [place] [address] Historical LMR Provider 08/10/17 documented as of this encounter Additional Source Comments The information contained in this document represents components of the legal health record. It is not the complete legal health record.[facility]
--- OUTSIDE RECORDS SUMMARY | 2025-06-28 18:00 | XMS_ITS | Clinical Summary ---
Author Organization [facility], Address [address] [place] [address] [place] [phone] Phone Care Team Providers Care Rack Production Worker Name Role Phone Ana Farias MD Primary Care Provider + Allergies No known active allergies Medications finasteride (PROSCAR) 5 MG tablet Take 1 tablet by mouth daily Active hydroCHLOROthia zide (HYDRODIURIL) 25 MG tablet Take 1 tablet by mouth 1 (one) time each day 7 Active donepezil (ARICEPT) 10 MG tablet Take 10 mg by mouth every night Active ibuprofen (ADVIL,MOTRIN) 200 MG tablet Take 200 mg by mouth every night Active acetaminophen (TYLENOL) 500 MG tablet Take 500 mg by mouth every night Active Cholecalciferol (Vitamin D) 25 MCG (1000 UT) tablet Take 1,000 Units by mouth 1 (one) time each day Active buPROPion XL (WELLBUTRIN XL) 150 MG 24 hr tablet Take 1 tablet by mouth 1 (one) time each day 1 Active B Complex Vitamins (VITAMIN B COMPLEX PO) Take 1 capsule by mouth daily Active tamsulosin (FLOMAX) 0.4 MG 24 hr capsule Take 0.4 mg by mouth in the morning. 2 Active polyethylene glycol (GLYCOLAX) 17 GM/SCOOP powder Take 17 g by mouth in the morning. 2 Active dorzolamide (TRUSOPT) 2 % ophthalmic solution Administer 1 drop into affected eye(s) daily 2 Active amLODIPine (NORVASC) 5 MG tablet Take 5 mg by mouth 1 (one) time each day 2 Active lisinopril 10 MG tablet Take 10 mg by mouth 1 (one) time each day For 30 days 2 Active Active Problems Problem Noted Date Diagnosed Date Stage 3b chronic kidney disease 08/13/2023 Atherosclerosis of renal artery 06/03/2022 Lower urinary tract symptoms due to benign prostatic hypertrophy 06/03/2022 Megaloblastic anemia 06/03/2022 Vitamin D deficiency 06/03/2022 Acute nontraumatic kidney injury 02/01/2022 Overview (02/25/2022): Last Assessment & Plan: Resolved Continue [place] for now with voiding trial and urology office in 1 week, restart lisinopril and HCTZ follow-up with PCP Anemia in chronic kidney disease 05/07/2021 Aquired multiple cysts of kidney 05/07/2021 Chronic kidney disease, stage 4 (severe) 021 Essential (primary) hypertension 07/19/2019 Overview (06/03/2022): Last Assessment & Plan: Lisinopril and HCTZ were held, can restart at discharge time Resolved Problems Problem Noted Date Diagnosed Date Resolved Date Chronic kidney disease stage 3B 06/03/2022 08/12/2023 Simple renal cyst 05/07/2021 05/07/2021 Immunizations Immunization Administration Dates Next Due H1N1 All Forms 11/09/2009 Influenza (IM) Preservative Free 11/11/2008 Influenza Split High Dose Pr eservative Free IM 06/28/2021,07/14/2019,08/07/2018,07/15,09/11/2016,10/05/2014,07/16/2013 ,07/03/2012,06/19/2011 Influenza, Quadrivalent, Pre servative Free 08/14/2010,11/09/2009 Moderna SARS-COV-2 12/26/2020,11/24/2020 Pneumococcal Conjugate 13-Valent 02/10/2013 Pneumococcal Polysaccharide 03/12/2016 Shingrix 05/10/2020 Td 05/22/2009 Tdap 07/10/2021,03/24/2012 Family History Medical History Relation Comments Cancer Daughter Parkinsonism Father Cancer Maternal Grandfather Cancer Maternal Grandmother Breast cancer Mother Relation Status Comments Daughter Alive Father Maternal Grandfather Maternal Grandmother Mother Social History Tobacco Use Types Packs/Day [...] 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 N ot on file Not on file Last Filed Vital Signs Vital Sign Reading Time Taken Comments Blood Pressure 122/60 08/13/2023 2:23 PM EDT Pulse 68 08/13/2023 2:23 PM EDT Temperature - - Respiratory Rate 14 08/13/2023 2:23 PM EDT Oxygen Saturation - - Inhaled Oxygen Concentration - - Weight 97.5 kg (215 lb) 08/13/2023 2:23 PM EDT Height 172.7 cm (5' 8 ) 08/13/2023 2:23 PM EDT Body Mass Index 32.69 08/13/2023 2:23 PM EDT Plan of Treatment Health Maintenance Due Date Last Done Comments Influenza Vaccine (#1) 2025 , 07/14/2019, 08/07/2018, Additional history exists Pneumococcal Vaccine: 50+ Years Completed 03/12/2016, 02/10/2013 Hepatitis B Vaccine Aged Out No longe r eligible based on patient's age to complete this topic Insurance Medicare [facility] Care Teams Rack Production Worker Relationship Specialty Start Date End Date Ana Farias MD [address] [place] [phone] PCP - General Family Medicine 02/14/21
--- OUTSIDE RECORDS SUMMARY | 2025-06-28 18:00 | XMS_ITS | Encounter Summary ---
Author Organization [facility] Address [address] [place] [address] Phone Care Team Providers Care Industrial Boilermaker Name Role Phone Ana Farias MD Unavailable [phone] Ana Farias MD Primary Care Provider + Encounter Details Date Type Department Care Team (Late st Contact Info) Description 10/25/2023 Procedure Pass [facility], Ct Scan - [address] [phone] Social History Tobacco Use Types Packs/Day Years [...] Date of Assessment Author No Risk Indicated 10/25/2023 12:43 PM Soha Short RN * [place] Suicide Severity Rating Scale (Screener/Recent Self-Report) Question Answer Date of Assessment Author 1. Wish to be (Past 1 Month) No 024 12:43 PM Soha Short RN 2. Non-Specific Active Suici shayy Thoughts (Past 1 Month) No 10/25/2023 12:43 PM Arjun Short RN 6. Suicidal Behavior (Lifetime) No 12:43 PM Soha Short RN documented as of this encounter Plan of Treatment Upcoming Encounters Date Type Department Care Team (Late st Contact Info) Description 07/01/2025 10:00 AM EDT Home Care Visit Self [facility] [address] [place] [phone] Codi Powell RN [address] [place] [address] 07/04/2025 3:00 AM EDT Home Care Visit Self [facility] [address] [place] [phone] Codi Powell RN [address] [place] [address] 07/11/2025 2:00 AM EDT Home Care Visit Self [facility] [address] [place] [phone] Codi Powell RN [address] [place] [address] 07/18/2025 3:30 AM EDT Home Care Visit Self [facility] [address] [place] [phone] Codi Powell RN [address] [place] [address] 07/25/2025 1:30 AM EDT Home [facility] Visit [facility] [address] [place] [address] Codi Powell RN [address] [place] [address] 08/01/2025 1:30 AM EDT Home Care Visit [facility] [address] [place], [place] [phone] Codi Powell RN [address] [place] [address] 08/10/2025 12:30 AM EDT Appointment [facility] [address] [place], [place] [phone] Codi Powell RN [address] [place] [address] documented as of this encounter Visit Diagnoses Not on filedocumented in this encounter Additional Health Concerns Infection Onset Date Last Indicated Resolved Time CoV-Risk 10/25/2023 10/25/2023 10/26/2023 3:40 PM EST [...] documented as of this encounter Care Teams Industrial Boilermaker Relationship Specialty Start Date End Date Ana Farisa MD [address] [place] [phone] [email or web address] PCP - General Family Medicine 01/28/19 Ana Farias MD [address] [place] [address] Historical LMR Provider 08/10/17 documented as of this encounter Additional Source Comments The information contained in this document represents components of the legal health record. It is not the complete legal health record.[facility]
--- OUTSIDE RECORDS SUMMARY | 2025-06-28 18:00 | XMS_ITS | Encounter Summary ---
Author Organization [facility] Address [address] [place] [address] Phone Care Team Providers Care Silver Plater Name Role Phone Ana Farias MD Unavailable [phone] Ana Farias MD Primary Care Provider + Encounter Details Date Type Department Care Team (Late st Contact Info) Description 10/25/2023 Procedure Pass [facility], Ct Scan - [address] [phone] Social History Tobacco Use Types Packs/Day Years [...] 10/25/2023 12:43 PM Soha Short RN * [place] Suicide Severity Rating Scale (Screener/Recent Self-Report) Question [...] 10:00 AM EDT Home Care Visit Self [facility] [address] [place] [phone] Codi Powell RN [address] [place] [phone] [email or web address] 07/04/2025 3:00 AM EDT Home Care Visit Self [facility] [address] [place] [phone] Codi Powell RN [address] [place] [address] 07/11/2025 2:00 AM EDT Home Care Visit Self [facility] [address] [place] [phone] Codi Powell RN [address] [place] [address] 07/18/2025 3:30 AM EDT Home Care Visit Self [facility] [address] [place] [phone] Codi Powell RN [address] [place] [phone] [email or web address] 07/25/2025 1:30 AM EDT Home [facility] Visit [facility] [address] [place] [address] Codi Powell RN [address] [place] [address] 08/01/2025 1:30 AM EDT Home Care Visit [facility] [address] [place], [place] [phone] Codi Powell RN [address] [place] [phone] [email or web address] 08/10/2025 12:30 AM EDT Appointment [facility] [address] [place], [place] [phone] Codi Powell RN [address] [place] [address] [email or web address] documented as of this encounter Visit Diagnoses [...] documented as of this encounter Care Teams Silver Plater Relationship Specialty Start Date End Date Ana Farias MD [address] [place] [phone] [email or web address] PCP - General Family Medicine 01/28/19 Ana Farias MD [address] [place] [address] [email or web address] Historical LMR Provider 08/10/17 documented as of this encounter Additional Source Comments The information contained in this document represents components of the legal health record. It is not the complete legal health record.[facility]
--- OUTSIDE RECORDS SUMMARY | 2025-06-28 18:00 | XMS_ITS | Patient Health Record ---
Author Organization [facility] marshall Address [address] [place] [address] Care Team Providers Care Strategic Account Director Name Role Phone FariasAna Primary Care Provider Keisha Ding Unavailable [phone] Hans Johnson Unavailable [phone] Derrick Broderick Unavailable [phone] Allergies No Known Allergies Results Component Value Reference Range Flag Notes SURGICAL PATHOLOGY (HUME) Reviewed date:08/23/2024 12:17:44 PM Interpretation: Performing Lab:Testing performed or reported by [facility], a Service of [facility], [address] [place] [address] Cayden Duran MD, Support Clerk [facility]# [id number] Notes/Report: Patient Name: DELMAR JUNIOR Lab Patient : [id number] (Age: 89) Collection Date: 08/12/2024 Accession Date: 08/13/2024 Sign Out Date: 08/18/2024 Tissue Source: 1:CHEST Final Diagnosis: Skin, chest, biopsy: - Actinic keratosis. Primary Pathologist:Amanda Allred M.D. electronically signed out by: Michele Allred M.D. / MERY Clinical History: Atypical mole, chest Gross Description: Labeled chest (per bottle) . Received in formalin is a shave biopsy of a 0.9 x 0.4 x 0.3 cm well-circumscr ibed raised tiwari-marie lesion. The margin is marked with green ink and the lesion is bisected and entirely submitted in 1 cassette, 2 pieces, x 3. (KD)* As of December 27, 2023, the specimen processing and staining is performed at [facility], [address] [place] [address] (CLIA#[id number]). Its performance characteristic s determined by [facility]. Lincoln Julio M.D. Support Clerk of Surgical Pathology, Julianne Serrano M.D. Support Clerk Cytopathology Phone #: [phone], On-Call Pathologist: [id number] PANDEMIC RESPIRATORY VIRAL O RDER (PRO) Reviewed date:10/31/2024 02:35:50 PM Interpretation: Performing Lab: Notes/Report: SARS-CoV-2 not detected Negative results do not preclude SARS-CoV-2 infection and should not be used as the sole basis for patient management decisions. Negative results must be combined with clinical observations, patient history, and epidemiological information. This test has been authorized by the FDA under an Emergency Use Authorization (EUA) for use by authorized laboratories. TEST ORDERED COVID has been ordered SPECIMEN SOURCE/DESCRIPTION NASAL SARS-COV 2 (COVID-19) PCR Negative Negative XR LUMBOSACRAL SPINE 2-3 VIE WS Reviewed date:10/31/2024 02:35:53 PM Interpretation: Performing Lab: Notes/Report: XR LUMBOSACRAL SPINE 2-3 VIEWS, XR THORACIC SPINE 3 VIEW 10/30/2024 12:13 PM Referring clinician's provided indication for this examination in Epic: S/P Fall COMPARISON: None FINDINGS: Thoracic spine: There is no evidence of acute fracture or malalignment. There is multilevel flowing anterior marginal osteophytosis, marked through the lower thoracic spine, may be seen in the setting of diffuse idiopathic skeletal hyperostosis. There is mild loss of disc space height through the midthoracic spine. There is atherosclerotic calcification of the aortic arch. Lumbosacral spine: There is no evidence of acute fracture or malalignment. There is mild anterior degenerative endplate marginal osteophytosis. The disc space heights are grossly preserved. There is degenerative change of the lower lumbar facet joints. The sacroiliac joints are congruent. There is vascular calcification. IMPRESSION: No evidence of acute fracture or malalignment. Degenerative change as described above. Interpreted by: Renee Lee MD Signed by: Renee Lee MD 10/30/24 Final result P.s. recent falls with back pain XR THORACIC SPINE 3 VIEW Reviewed date:10/31/2024 02:36:11 PM Interpretation: Performing Lab: Notes/Report: XR LUMBOSACRAL SPINE 2-3 VIEWS, XR THORACIC SPINE 3 VIEW 10/30/2024 12:13 PM Referring clinician's provided indication for this examination in Epic: S/P Fall COMPARISON: None FINDINGS: Thoracic spine: There is no evidence of acute fracture or malalignment. There is multilevel flowing anterior marginal osteophytosis, marked through the lower thoracic spine, may be seen in the setting of diffuse idiopathic skeletal hyperostosis. There is mild loss of disc space height through the midthoracic spine. There is atherosclerotic calcification of the aortic arch. Lumbosacral spine: There is no evidence of acute fracture or malalignment. There is mild anterior degenerative endplate marginal osteophytosis. The disc space heights are grossly preserved. There is degenerative change of the lower lumbar facet joints. The sacroiliac joints are congruent. There is vascular calcification. IMPRESSION: No evidence of acute fracture or malalignment. Degenerative change as described above. Interpreted by: Renee Lee MD Signed by: Renee Lee MD 10/30/24 Final result P.s. recent falls with back pain COMP MET PANEL Reviewed date:11/04/2024 10:20:47 AM Interpretation: Performing Lab: Notes/Report: SODIUM 137 133-146 mmol/L POTASSIUM 4.1 3.3-5.1 mmol/L CHLORIDE 102 96-108 mmol/L CO2 21 21-35 mmol/L BUN 46 6-19 mg/dL H CREATININE 2.30 0.5-1.5 mg/dL H GLUCOSE 92 70-99 mg/dL ALBUMIN 3.3 3.9-4.8 g/dL L TOTAL PROTEIN 6.4 6.5-8.0 g/dL L CALCIUM 9.0 8.4-10.3 mg/dL ALKALINE PHOSPHATASE 46 39-117 U/L TOTAL BILIRUBIN 0.4 0.0-1.2 mg/dL AST 24 0-37 U/L ALT 26 0-40 U/L EGFR 27 >59 mL/min/1.73m2 L Estimated glomerular filtration rate calculated using the CKD-EPI refit equation. ANION GAP 18 10-20 mmol/L GLOBULIN 3.1 1-4.8 g/dL CBC AND DIFFERENTIAL Reviewed date:11/04/2024 10:20:43 AM Interpretation: Performing Lab: Notes/Report: WBC 7.66 4.00-11.00 K/uL RBC 2.72 4.50-5.90 M/uL L HGB 9.1 13.5-17.5 g/dL L HCT 28.3 41.0-53.0 % L PLT 229 150-450 K/uL MCV 104.0 80.0-100.0 fL H MCH 33.5 27.0-31.0 pg H MCHC 32.2 32.0-36.0 g/dL RDW 15.7 11.5-14.5 % H MPV 9.0 8.4-12.0 fL NRBC 0.00 0.00 /100 WBCs ABSOLUTE NRBC 0.00 0.00 K/uL DIFF METHOD Auto NEUTS 61.5 48.0-76.0 % LYMPHS 18.7 18.0-41.0 % MONOS 14.2 4.0-11.0 % H EOS 3.7 0.0-5.0 % BASOS 0.3 0.0-1.5 % GRANULOCYTES, IMMATURE (%) 1.6 0.0-0.9 % H ABSOLUTE NEUTS 4.72 1.92-7.60 K/uL ABSOLUTE LYMPHS 1.43 0.72-4.10 K/uL ABSOLUTE MONOS 1.09 0.16-1.10 K/uL ABSOLUTE EOS 0.28 0.00-0.50 K/uL ABSOLUTE BASOS 0.02 0.00-0.15 K/uL GRANULOCYTES, IMMATURE 0.12 0.00-0.09 K/uL H NOROVIRUS RNA, STOOL Reviewed date:11/14/2024 08:46:03 PM Interpretation: Performing Lab: Notes/Report: NOROVIRUS G1 PCR Negative Negative NOROVIRUS G2 PCR Negative Negative (NOTE) -----ADDITIONA L INFORMATION--- -- This test was developed and its performance characteristic s determined by [facility] in a manner consistent with CLIA requirements. This test has not been cleared or approved by the U.S. Food and Drug Administration . CBC Reviewed date:11/14/2024 08:41:14 PM Interpretation: Performing Lab: Notes/Report: WBC 12.11 4.00-11.00 K/uL H RBC 2.67 4.50-5.90 M/uL L HGB 8.9 13.5-17.5 g/dL L HCT 27.1 41.0-53.0 % L MCV 101.5 80.0-100.0 fL H MCH 33.3 27.0-31.0 pg H MCHC 32.8 32.0-36.0 g/dL RDW 15.7 11.5-14.5 % H MPV 8.9 8.4-12.0 fL PLT 235 150-450 K/uL NRBC 0.00 0.00 /100 WBCs ABSOLUTE NRBC 0.00 0.00 K/uL CBC Reviewed date:11/14/2024 08:41:11 PM Interpretation: Performing Lab: Notes/Report: WBC 11.90 4.00-11.00 K/uL H RBC 2.63 4.50-5.90 M/uL L HGB 8.6 13.5-17.5 g/dL L HCT 26.7 41.0-53.0 % L MCV 101.5 80.0-100.0 fL H MCH 32.7 27.0-31.0 pg H MCHC 32.2 32.0-36.0 g/dL RDW 15.6 11.5-14.5 % H MPV 9.1 8.4-12.0 fL PLT 236 150-450 K/uL NRBC 0.00 0.00 /100 WBCs ABSOLUTE NRBC 0.00 0.00 K/uL COMP MET PANEL Reviewed date:11/14/2024 08:41:08 PM Interpretation: Performing Lab: Notes/Report: SODIUM 138 133-146 mmol/L POTASSIUM 3.6 3.3-5.1 mmol/L CHLORIDE 101 96-108 mmol/L CO2 25 21-35 mmol/L BUN 64 6-19 mg/dL H CREATININE 2.00 0.5-1.5 mg/dL H GLUCOSE 90 70-99 mg/dL ALBUMIN 3.1 3.9-4.8 g/dL L TOTAL PROTEIN 6.7 6.5-8.0 g/dL CALCIUM 9.0 8.4-10.3 mg/dL ALKALINE PHOSPHATASE 50 39-117 U/L TOTAL BILIRUBIN 0.4 0.0-1.2 mg/dL AST 18 0-37 U/L ALT 12 0-40 U/L EGFR 32 >59 mL/min/1.73m2 L Estimated glomerular filtration rate calculated using the CKD-EPI refit equation. ANION GAP 16 10-20 mmol/L GLOBULIN 3.6 1-4.8 g/dL PANDEMIC RESPIRATORY VIRAL O RDER (PRO) Reviewed date:11/14/2024 07:16:58 PM Interpretation: Performing Lab: Notes/Report: SARS-CoV-2 not detected Negative results do not preclude SARS-CoV-2 infection and should not be used as the sole basis for patient management decisions. Negative results must be combined with clinical observations, patient history, and epidemiological information. This test has been authorized by the FDA under an Emergency Use Authorization (EUA) for use by authorized laboratories. TEST ORDERED COVID has been ordered SPECIMEN SOURCE/DESCRIPTION NASAL SARS-COV 2 (COVID-19) PCR Negative Negative CBC Reviewed date:11/14/2024 07:10:50 PM Interpretation: Performing Lab: Notes/Report: WBC 10.70 4.00-11.00 K/uL RBC 2.57 4.50-5.90 M/uL L HGB 8.8 13.5-17.5 g/dL L HCT 25.8 41.0-53.0 % L MCV 100.4 80.0-100.0 fL H MCH 34.2 27.0-31.0 pg H MCHC 34.1 32.0-36.0 g/dL RDW 15.5 11.5-14.5 % H MPV 8.9 8.4-12.0 fL PLT 218 150-450 K/uL NRBC 0.00 0.00 /100 WBCs ABSOLUTE NRBC 0.00 0.00 K/uL CBC Reviewed date:11/14/2024 07:09:53 PM Interpretation: Performing Lab: Notes/Report: WBC 6.55 4.00-11.00 K/uL RBC 2.36 4.50-5.90 M/uL L HGB 7.7 13.5-17.5 g/dL L HCT 24.3 41.0-53.0 % L MCV 103.0 80.0-100.0 fL H MCH 32.6 27.0-31.0 pg H MCHC 31.7 32.0-36.0 g/dL L RDW 15.3 11.5-14.5 % H MPV 9.2 8.4-12.0 fL PLT 231 150-450 K/uL NRBC 0.00 0.00 /100 WBCs ABSOLUTE NRBC 0.00 0.00 K/uL BASIC METABOLIC PANEL Reviewed date:11/14/2024 07:10:44 PM Interpretation: Performing Lab: Notes/Report: SODIUM 138 133-146 mmol/L CHLORIDE 101 96-108 mmol/L POTASSIUM 3.4 3.3-5.1 mmol/L CO2 26 21-35 mmol/L BUN 49 6-19 mg/dL H CREATININE 1.60 0.5-1.5 mg/dL H GLUCOSE 88 70-99 mg/dL CALCIUM 8.7 8.4-10.3 mg/dL EGFR 41 >59 mL/min/1.73m2 L Estimated glomerular filtration rate calculated using the CKD-EPI refit equation. ANION GAP 14 10-20 mmol/L PANDEMIC RESPIRATORY VIRAL O RDER (PRO) Reviewed date:11/14/2024 07:09:51 PM Interpretation: Performing Lab: Notes/Report: SARS-CoV-2 not detected Negative results do not preclude SARS-CoV-2 infection and should not be used as the sole basis for patient management decisions. Negative results must be combined with clinical observations, patient history, and epidemiological information. This test has been authorized by the FDA under an Emergency Use Authorization (EUA) for use by authorized laboratories. TEST ORDERED COVID has been ordered SPECIMEN SOURCE/DESCRIPTION NASAL SARS-COV 2 (COVID-19) PCR Negative Negative CBC Reviewed date:10/30/2024 10:07:21 AM Interpretation: Performing Lab: Notes/Report: WBC 10.32 4.00-11.00 K/uL RBC 2.69 4.50-5.90 M/uL L HGB 9.0 13.5-17.5 g/dL L HCT 27.6 41.0-53.0 % L MCV 102.6 80.0-100.0 fL H MCH 33.5 27.0-31.0 pg H MCHC 32.6 32.0-36.0 g/dL RDW 16.2 11.5-14.5 % H MPV 9.2 8.4-12.0 fL PLT 144 150-450 K/uL L NRBC 0.00 0.00 /100 WBCs ABSOLUTE NRBC 0.00 0.00 K/uL BASIC METABOLIC PANEL Reviewed date:10/30/2024 10:07:17 AM Interpretation: Performing Lab: Notes/Report: SODIUM 139 133-146 mmol/L CHLORIDE 105 96-108 mmol/L POTASSIUM 3.7 3.3-5.1 mmol/L CO2 24 21-35 mmol/L BUN 31 6-19 mg/dL H CREATININE 2.20 0.5-1.5 mg/dL H GLUCOSE 91 70-99 mg/dL CALCIUM 8.4 8.4-10.3 mg/dL EGFR 28 >59 mL/min/1.73m2 L Estimated glomerular filtration rate calculated using the CKD-EPI refit equation. ANION GAP 14 10-20 mmol/L HEPATIC FUNCTION PANEL Reviewed date:10/30/2024 10:07:14 AM Interpretation: Performing Lab: Notes/Report: ALKALINE PHOSPHATASE 46 39-117 U/L TOTAL BILIRUBIN 0.9 0.0-1.2 mg/dL DIRECT BILIRUBIN 0.3 0-0.3 mg/dL BILIRUBIN (INDIRECT) 0.6 0-1.5 mg/dL AST 13 0-37 U/L ALT 8 0-40 U/L TOTAL PROTEIN 6.4 6.5-8.0 g/dL L ALBUMIN 3.4 3.9-4.8 g/dL L A/G RATIO 1.13 1.00-4.80 RATIO GLOBULIN 3.0 1-4.8 g/dL Vancomycin, peak Reviewed date:10/30/2024 10:07:08 AM Interpretation: Performing Lab: Notes/Report: VANCOMYCIN,PEAK 9.1 30.0-40.0 ug/mL L Interpretation : Therapeutic Range: 30 - 40 ug/ml. Toxic: Greater than or equal to 50 ug/ml. XR CHEST PORTABLE Reviewed date:10/30/2024 10:07:11 AM Interpretation: Performing Lab: Notes/Report: XR CHEST PORTABLE Referring clinician's provided indication for this examination in Epic: Infection COMPARISON: XR CHEST PORTABLE ; CT CHEST WITHOUT CONTRAST ; XR CHEST PORTABLE FINDINGS: Devices/Tubes/Lines: None. Lungs: The lung volumes. Crowding of the bronchovascular interstitium. Linear opacity in the right upper lung zone, favored to represent atelectasis. Pleura: Normal. No pleural effusion or pneumothorax. Heart/Mediastinum: Stable size and contour of the cardiomediastinal silhouette with atherosclerotic calcification of the thoracic aorta. Bones/Soft Tissues: Multilevel spondylosis. Bilateral acromioclavicular arthropathy. IMPRESSION: Decreased lung volumes. Linear opacity in the right upper lung zone, favored to represent linear atelectasis. Interpreted by: Annette De Dios MD Signed by: Annette De Dios MD 10/29/24 Final result Infection CBC Reviewed date:10/30/2024 10:01:51 AM Interpretation: Performing Lab: Notes/Report: WBC 8.97 4.00-11.00 K/uL RBC 2.82 4.50-5.90 M/uL L HGB 9.4 13.5-17.5 g/dL L HCT 29.1 41.0-53.0 % L MCV 103.2 80.0-100.0 fL H MCH 33.3 27.0-31.0 pg H MCHC 32.3 32.0-36.0 g/dL RDW 15.9 11.5-14.5 % H MPV 9.3 8.4-12.0 fL PLT 152 150-450 K/uL NRBC 0.00 0.00 /100 WBCs ABSOLUTE NRBC 0.00 0.00 K/uL BLOOD CULTURE Reviewed date:11/05/2024 06:57:54 PM Interpretation: Performing Lab: Notes/Report: SPECIAL REQUESTS None BLOOD CULTURE NO GROWTH 5 DAYS Folate Reviewed date:10/30/2024 10:01:00 AM Interpretation: Performing Lab: Notes/Report: FOLIC ACID 13.6 4.2-19.9 ng/mL Vitamin B12 Reviewed date:10/30/2024 10:01:03 AM Interpretation: Performing Lab: Notes/Report: VITAMIN B12 738 399-6975 pg/mL Iron and iron binding capaci ty Reviewed date:10/30/2024 10:01:06 AM Interpretation: Performing Lab: Notes/Report: IRON 41 45-160 ug/dL L IRON BINDING CAPACITY 167 228-428 ug/dL L TRANSFERRIN SATURAT. 25 20-55 % BLOOD CULTURE Reviewed date:11/05/2024 06:57:13 PM Interpretation: Performing Lab: Notes/Report: SPECIAL REQUESTS None BLOOD CULTURE NO GROWTH 5 DAYS MRI LUMBAR SPINE (NEURO) WIT H AND WITHOUT CONTRAST Reviewed date:11/05/2024 06:57:47 PM Interpretation: Performing Lab: Notes/Report: [id number] Completed Important - [facility] HCM12 [id number] Completed Urgent [id number] Imaging Center - [facility] MRI SACRUM WITH AND WITHOUT CONTRAST Reviewed date:11/02/2024 12:38:37 PM Interpretation: Performing Lab: Notes/Report: MRI SACRUM WITH AND WITHOUT CONTRAST Referring clinician's provided indication for this examination in [facility]: * Coccydynia pain; bacteremia TECHNIQUE: Multi-sequence, multi-planar MRI of the sacrum with and without intravenous contrast. COMPARISON: XR LUMBOSACRAL SPINE 2-3 VIEWS 2024- FINDINGS: Bone: No bone marrow edema, marrow placement on the T1-weighted sequence, or suspicious osseous enhancement to suggest osteomyelitis. No fluid collection in the sacral spinal canal. No evidence of stress response or fracture. The sacral foramina are widely patent. Partially imaged degenerative changes in the lower lumbar spine. Sacroiliac Joints: Mild degenerative changes bilaterally with spurring anteriorly. No effusion, erosion, or subchondral bone marrow edema. Soft Tissues: Nonspecific mild presacral edema without fluid collection. Partially imaged edema and enhancement in the left psoas muscle; see dedicated MR lumbar spine. Dependent subcutaneous edema posteriorly. Visualized portions of the proximal sciatic nerves are within normal limits. Miscellaneous: Crowley catheter in the bladder. IMPRESSION: 1. No evidence of osteomyelitis in the sacrum or coccyx. 2. Mild nonspecific presacral edema, without fluid collection. 3. Partially imaged edema and enhancement in the left psoas muscle. Interpreted by: Sebastian Card MD Signed by: Sebastian Card MD 11/01/24 Final result bacteremia X-rays on [facility] MRI Sacrum WWO BLOOD CULTURE Reviewed date:11/05/2024 06:57:51 PM Interpretation: Performing Lab: Notes/Report: SPECIAL REQUESTS None BLOOD CULTURE NO GROWTH 5 DAYS BASIC METABOLIC PANEL Reviewed date:11/01/2024 03:33:16 PM Interpretation: Performing Lab: Notes/Report: SODIUM 137 133-146 mmol/L CHLORIDE 105 96-108 mmol/L POTASSIUM 4.5 3.3-5.1 mmol/L CO2 22 21-35 mmol/L BUN 24 6-19 mg/dL H CREATININE 1.80 0.5-1.5 mg/dL H GLUCOSE 95 70-99 mg/dL CALCIUM 8.9 8.4-10.3 mg/dL EGFR 36 >59 mL/min/1.73m2 L Estimated glomerular filtration rate calculated using the CKD-EPI refit equation. ANION GAP 15 10-20 mmol/L CBC AND DIFFERENTIAL Reviewed date:11/01/2024 03:33:19 PM Interpretation: Performing Lab: Notes/Report: WBC 7.22 4.00-11.00 K/uL RBC 2.89 4.50-5.90 M/uL L HGB 9.7 13.5-17.5 g/dL L HCT 30.0 41.0-53.0 % L PLT 186 150-450 K/uL MCV 103.8 80.0-100.0 fL H MCH 33.6 27.0-31.0 pg H MCHC 32.3 32.0-36.0 g/dL RDW 15.6 11.5-14.5 % H MPV 9.2 8.4-12.0 fL NRBC 0.00 0.00 /100 WBCs ABSOLUTE NRBC 0.00 0.00 K/uL DIFF METHOD Auto NEUTS 66.1 48.0-76.0 % LYMPHS 19.7 18.0-41.0 % MONOS 10.2 4.0-11.0 % EOS 2.5 0.0-5.0 % BASOS 0.3 0.0-1.5 % GRANULOCYTES, IMMATURE (%) 1.2 0.0-0.9 % H ABSOLUTE NEUTS 4.77 1.92-7.60 K/uL ABSOLUTE LYMPHS 1.42 0.72-4.10 K/uL ABSOLUTE MONOS 0.74 0.16-1.10 K/uL ABSOLUTE EOS 0.18 0.00-0.50 K/uL ABSOLUTE BASOS 0.02 0.00-0.15 K/uL GRANULOCYTES, IMMATURE 0.09 0.00-0.09 K/uL RESPIRATORY PATHOGEN PCR DE [place] EL Reviewed date:11/14/2024 08:48:33 PM Interpretation: Performing Lab: Notes/Report: Corrected on 11/13 AT 1741: previously reported as NASAL (NOTE) (NOTE) SARS-CoV-2 RNA absent. This result does not rule out This assay is not predicted to detect SARS-coronavirus COVID-19 in the patient, as the sensitivity of the test (CoV), or MERS-CoV. depends on the timing of the specimen collection and the quality of the specimen. Result should be correlated with ADDITIONAL INFORMATION patient's history and clinical presentation. This assay is performed using the FDA-Cleared Wild Needle Respiratory Panel 2.1 ([employer]). SPECIMEN SOURCE NASOPHARYNGEAL SWAB ADENOVIRUS Undetected Undetected CORONAVIRUS 229E Undetected Undetected CORONAVIRUS HKU1 Undetected Undetected CORONAVIRUS NL63 Undetected Undetected CORONAVIRUS OC43 Undetected Undetected SARS CORONAVIRUS-2 Undetected Undetected HUMAN METAPNEUMOVIRUS Undetected Undetected HUMAN RHINOVIRUS/ ENTEROVIRUS Undetected Undetected INFLUENZA A Undetected Undetected INFLUENZA B Undetected Undetected PARAINFLUENZA VIRUS 1 Undetected Undetected PARAINFLUENZA VIRUS 2 Undetected Undetected PARAINFLUENZA VIRUS 3 Undetected Undetected PARAINFLUENZA VIRUS 4 Undetected Undetected RESPIRATORY SYNCYTIAL VIRUS Undetected Undetected BORDETELLA PARAPERTUSSIS Undetected Undetected BORDETELLA PERTUSSIS Undetected Undetected CHLAMYDIA PNEUMONIAE Undetected Undetected MYCOPLASMA PNEUMONIAE Undetected Undetected INTERPRETATION SEE NOTE CBC Reviewed date:11/14/2024 08:46:07 PM Interpretation: Performing Lab: Notes/Report: WBC 15.64 4.00-11.00 K/uL H RBC 2.95 4.50-5.90 M/uL L HGB 9.8 13.5-17.5 g/dL L HCT 30.5 41.0-53.0 % L MCV 103.4 80.0-100.0 fL H MCH 33.2 27.0-31.0 pg H MCHC 32.1 32.0-36.0 g/dL RDW 15.4 11.5-14.5 % H MPV 9.0 8.4-12.0 fL PLT 285 150-450 K/uL NRBC 0.00 0.00 /100 WBCs ABSOLUTE NRBC 0.00 0.00 K/uL Lactate Reviewed date:11/12/2024 01:57:08 PM Interpretation: Performing Lab: Notes/Report: LACTATE 2.08 0.50-2.20 mmol/L Magnesium Reviewed date:11/12/2024 01:49:19 PM Interpretation: Performing Lab: Notes/Report: MAGNESIUM 2.8 1.6-2.6 mg/dL H CBC AND DIFFERENTIAL Reviewed date:11/12/2024 01:56:24 PM Interpretation: Performing Lab: Notes/Report: WBC 10.99 4.00-11.00 K/uL RBC 3.35 4.50-5.90 M/uL L HGB 10.9 13.5-17.5 g/dL L HCT 33.9 41.0-53.0 % L PLT 301 150-450 K/uL MCV 101.2 80.0-100.0 fL H MCH 32.5 27.0-31.0 pg H MCHC 32.2 32.0-36.0 g/dL RDW 15.3 11.5-14.5 % H MPV 9.0 8.4-12.0 fL NRBC 0.00 0.00 /100 WBCs ABSOLUTE NRBC 0.00 0.00 K/uL DIFF METHOD Auto NEUTS 74.9 48.0-76.0 % LYMPHS 11.6 18.0-41.0 % L MONOS 12.4 4.0-11.0 % H EOS 0.0 0.0-5.0 % BASOS 0.3 0.0-1.5 % GRANULOCYTES, IMMATURE (%) 0.8 0.0-0.9 % ABSOLUTE NEUTS 8.24 1.92-7.60 K/uL H ABSOLUTE LYMPHS 1.27 0.72-4.10 K/uL ABSOLUTE MONOS 1.36 0.16-1.10 K/uL H ABSOLUTE EOS 0.00 0.00-0.50 K/uL ABSOLUTE BASOS 0.03 0.00-0.15 K/uL GRANULOCYTES, IMMATURE 0.09 0.00-0.09 K/uL TYPE AND SCREEN Reviewed date:11/15/2024 12:35:58 PM Interpretation: Performing Lab: Notes/Report: ABO/RH A Positive ANTIBODY SCREEN Positive A EXPIRATION DATE OF SAMPLE 11/15/2024,233 RESULTING AGENCY [facility] ANTIBODY IDENTIFICATION Anti M (37c Active). TYPE AND SCREEN - COMMENT Critical value : Results called to and read back by: LEIF Maher (ED) AT 1126 UNABLE TO RULE OUT ANTI S RBC - UNIT NUMBER [id number] RBC - COMPONENT TYPE RBC LR RBC - PRODUCT CODE [id number] RBC - UNIT DIVISION 00 RBC - PRODUCT STATUS OF UNIT ISSUED,FINAL Lactate Reviewed date:11/12/2024 01:49:03 PM Interpretation: Performing Lab: Notes/Report: LACTATE 2.44 0.50-2.20 mmol/L H CBC Reviewed date:11/15/2024 12:35:38 PM Interpretation: Performing Lab: Notes/Report: WBC 8.18 4.00-11.00 K/uL RBC 2.95 4.50-5.90 M/uL L HGB 9.5 13.5-17.5 g/dL L HCT 28.2 41.0-53.0 % L MCV 95.6 80.0-100.0 fL MCH 32.2 27.0-31.0 pg H MCHC 33.7 32.0-36.0 g/dL RDW 18.5 11.5-14.5 % H MPV 9.1 8.4-12.0 fL PLT 227 150-450 K/uL NRBC 0.00 0.00 /100 WBCs ABSOLUTE NRBC 0.00 0.00 K/uL CBC Reviewed date:11/16/2024 12:49:20 PM Interpretation: Performing Lab: Notes/Report: WBC 8.56 4.00-11.00 K/uL RBC 2.89 4.50-5.90 M/uL L HGB 9.3 13.5-17.5 g/dL L HCT 28.0 41.0-53.0 % L MCV 96.9 80.0-100.0 fL MCH 32.2 27.0-31.0 pg H MCHC 33.2 32.0-36.0 g/dL RDW 17.9 11.5-14.5 % H MPV 8.7 8.4-12.0 fL PLT 234 150-450 K/uL NRBC 0.00 0.00 /100 WBCs ABSOLUTE NRBC 0.00 0.00 K/uL BASIC METABOLIC PANEL Reviewed date:11/16/2024 12:49:14 PM Interpretation: Performing Lab: Notes/Report: SODIUM 136 133-146 mmol/L CHLORIDE 103 96-108 mmol/L POTASSIUM 3.8 3.3-5.1 mmol/L CO2 23 21-35 mmol/L BUN 32 6-19 mg/dL H CREATININE 1.50 0.5-1.5 mg/dL GLUCOSE 120 70-99 mg/dL H CALCIUM 8.3 8.4-10.3 mg/dL L EGFR 45 >59 mL/min/1.73m2 L Estimated glomerular filtration rate calculated using the CKD-EPI refit equation. ANION GAP 14 10-20 mmol/L BASIC METABOLIC PANEL Reviewed date:11/22/2024 01:21:03 PM Interpretation: Performing Lab: Notes/Report: SODIUM 138 133-146 mmol/L CHLORIDE 102 96-108 mmol/L POTASSIUM 4.2 3.3-5.1 mmol/L CO2 26 21-35 mmol/L BUN 29 6-19 mg/dL H CREATININE 1.60 0.5-1.5 mg/dL H GLUCOSE 83 70-99 mg/dL CALCIUM 9.1 8.4-10.3 mg/dL EGFR 41 >59 mL/min/1.73m2 L Estimated glomerular filtration rate calculated using the CKD-EPI refit equation. ANION GAP 14 10-20 mmol/L Troponin T Reviewed date:04/10/2025 08:05:04 PM Interpretation: Performing Lab: Notes/Report: TROPONIN-T, HS GEN5 34 0-14 ng/L H Vancomycin, peak Reviewed date:04/10/2025 08:04:49 PM Interpretation: Performing Lab: Notes/Report: VANCOMYCIN,PEAK 21.4 30.0-40.0 ug/mL L Interpretation : Therapeutic Range: 30 - 40 ug/ml. Toxic: Greater than or equal to 50 ug/ml. CBC AND DIFFERENTIAL Reviewed date:04/10/2025 08:05:01 PM Interpretation: Performing Lab: Notes/Report: WBC 17.62 4.00-11.00 K/uL H RBC 2.71 4.50-5.90 M/uL L HGB 9.1 13.5-17.5 g/dL L HCT 28.8 41.0-53.0 % L PLT 195 150-450 K/uL MCV 106.3 80.0-100.0 fL H MCH 33.6 27.0-31.0 pg H MCHC 31.6 32.0-36.0 g/dL L RDW 14.8 11.5-14.5 % H MPV 9.1 8.4-12.0 fL NRBC 0.00 0.00 /100 WBCs ABSOLUTE NRBC 0.00 0.00 K/uL DIFF METHOD Auto NEUTS 77.2 48.0-76.0 % H LYMPHS 10.6 18.0-41.0 % L MONOS 9.9 4.0-11.0 % EOS 1.2 0.0-5.0 % BASOS 0.2 0.0-1.5 % GRANULOCYTES, IMMATURE (%) 0.9 0.0-0.9 % ABSOLUTE NEUTS 13.61 1.92-7.60 K/uL H ABSOLUTE LYMPHS 1.86 0.72-4.10 K/uL ABSOLUTE MONOS 1.75 0.16-1.10 K/uL H ABSOLUTE EOS 0.21 0.00-0.50 K/uL ABSOLUTE BASOS 0.04 0.00-0.15 K/uL GRANULOCYTES, IMMATURE 0.15 0.00-0.09 K/uL H BASIC METABOLIC PANEL Reviewed date:04/11/2025 09:28:42 AM Interpretation: Performing Lab: Notes/Report: SODIUM 142 133-146 mmol/L CHLORIDE 106 96-108 mmol/L POTASSIUM 3.9 3.3-5.1 mmol/L CO2 27 21-35 mmol/L BUN 30 6-19 mg/dL H CREATININE 1.90 0.5-1.5 mg/dL H GLUCOSE 86 70-99 mg/dL CALCIUM 8.9 8.4-10.3 mg/dL EGFR 34 >59 mL/min/1.73m2 L Estimated glomerular filtration rate calculated using the CKD-EPI refit equation. ANION GAP 13 10-20 mmol/L CBC AND DIFFERENTIAL Reviewed date:11/22/2024 01:21:07 PM Interpretation: Performing Lab: Notes/Report: WBC 6.02 4.00-11.00 K/uL RBC 3.05 4.50-5.90 M/uL L HGB 9.5 13.5-17.5 g/dL L HCT 30.6 41.0-53.0 % L PLT 226 150-450 K/uL MCV 100.3 80.0-100.0 fL H MCH 31.1 27.0-31.0 pg H MCHC 31.0 32.0-36.0 g/dL L RDW 17.0 11.5-14.5 % H MPV 8.9 8.4-12.0 fL NRBC 0.00 0.00 /100 WBCs ABSOLUTE NRBC 0.00 0.00 K/uL DIFF METHOD Auto NEUTS 61.3 48.0-76.0 % LYMPHS 24.6 18.0-41.0 % MONOS 9.1 4.0-11.0 % EOS 3.8 0.0-5.0 % BASOS 0.5 0.0-1.5 % GRANULOCYTES, IMMATURE (%) 0.7 0.0-0.9 % ABSOLUTE NEUTS 3.69 1.92-7.60 K/uL ABSOLUTE LYMPHS 1.48 0.72-4.10 K/uL ABSOLUTE MONOS 0.55 0.16-1.10 K/uL ABSOLUTE EOS 0.23 0.00-0.50 K/uL ABSOLUTE BASOS 0.03 0.00-0.15 K/uL GRANULOCYTES, IMMATURE 0.04 0.00-0.09 K/uL BASIC METABOLIC PANEL Reviewed date:11/23/2024 03:44:37 PM Interpretation: Performing Lab: Notes/Report: SODIUM 135 133-146 mmol/L CHLORIDE 99 96-108 mmol/L POTASSIUM 3.9 3.3-5.1 mmol/L CO2 25 21-35 mmol/L BUN 30 6-19 mg/dL H CREATININE 1.60 0.5-1.5 mg/dL H GLUCOSE 105 70-99 mg/dL H CALCIUM 9.2 8.4-10.3 mg/dL EGFR 41 >59 mL/min/1.73m2 L Estimated glomerular filtration rate calculated using the CKD-EPI refit equation. ANION GAP 15 10-20 mmol/L CRP Reviewed date:04/11/2025 09:28:39 AM Interpretation: Performing Lab: Notes/Report: C REACTIVE PROTEIN 91.6 0.0-4.0 mg/L H Ferritin Reviewed date:04/11/2025 09:28:32 AM Interpretation: Performing Lab: Notes/Report: FERRITIN 336 30-400 ug/L Folate Reviewed date:04/11/2025 09:28:13 AM Interpretation: Performing Lab: Notes/Report: FOLIC ACID 8.8 4.2-19.9 ng/mL Magnesium Reviewed date:04/11/2025 09:28:30 AM Interpretation: Performing Lab: Notes/Report: MAGNESIUM 1.8 1.6-2.6 mg/dL Phosphorus Reviewed date:04/11/2025 09:28:19 AM Interpretation: Performing Lab: Notes/Report: PHOSPHORUS 2.4 2.7-4.5 mg/dL L Lactate Reviewed date:11/23/2024 03:46:11 PM Interpretation: Performing Lab: Notes/Report: LACTATE 1.31 0.50-2.20 mmol/L Vitamin B12 Reviewed date:04/11/2025 09:28:15 AM Interpretation: Performing Lab: Notes/Report: VITAMIN B12 265 282-0300 pg/mL Iron and iron binding capaci ty Reviewed date:04/11/2025 09:28:17 AM Interpretation: Performing Lab: Notes/Report: IRON 38 45-160 ug/dL L IRON BINDING CAPACITY 156 228-428 ug/dL L TRANSFERRIN SATURAT. 24 20-55 % CBC AND DIFFERENTIAL Reviewed date:04/11/2025 09:28:48 AM Interpretation: Performing Lab: Notes/Report: WBC 7.31 4.00-11.00 K/uL RBC 2.53 4.50-5.90 M/uL L HGB 8.6 13.5-17.5 g/dL L HCT 26.5 41.0-53.0 % L PLT 175 150-450 K/uL MCV 104.7 80.0-100.0 fL H MCH 34.0 27.0-31.0 pg H MCHC 32.5 32.0-36.0 g/dL RDW 14.6 11.5-14.5 % H MPV 9.3 8.4-12.0 fL NRBC 0.00 0.00 /100 WBCs ABSOLUTE NRBC 0.00 0.00 K/uL DIFF METHOD Auto NEUTS 61.5 48.0-76.0 % LYMPHS 20.8 18.0-41.0 % MONOS 13.3 4.0-11.0 % H EOS 3.4 0.0-5.0 % BASOS 0.3 0.0-1.5 % GRANULOCYTES, IMMATURE (%) 0.7 0.0-0.9 % ABSOLUTE NEUTS 4.50 1.92-7.60 K/uL ABSOLUTE LYMPHS 1.52 0.72-4.10 K/uL ABSOLUTE MONOS 0.97 0.16-1.10 K/uL ABSOLUTE EOS 0.25 0.00-0.50 K/uL ABSOLUTE BASOS 0.02 0.00-0.15 K/uL GRANULOCYTES, IMMATURE 0.05 0.00-0.09 K/uL Sedimentation rate (ESR) Reviewed date:11/23/2024 03:46:04 PM Interpretation: Performing Lab: Notes/Report: ESR 57 0-20 mm/h H CBC AND DIFFERENTIAL Reviewed date:11/23/2024 03:46:08 PM Interpretation: Performing Lab: Notes/Report: WBC 5.83 4.00-11.00 K/uL RBC 3.29 4.50-5.90 M/uL L HGB 10.4 13.5-17.5 g/dL L HCT 31.7 41.0-53.0 % L PLT 218 150-450 K/uL MCV 96.4 80.0-100.0 fL MCH 31.6 27.0-31.0 pg H MCHC 32.8 32.0-36.0 g/dL RDW 16.5 11.5-14.5 % H MPV 8.7 8.4-12.0 fL NRBC 0.00 0.00 /100 WBCs ABSOLUTE NRBC 0.00 0.00 K/uL DIFF METHOD Auto NEUTS 58.1 48.0-76.0 % LYMPHS 24.9 18.0-41.0 % MONOS 10.5 4.0-11.0 % EOS 5.1 0.0-5.0 % H BASOS 0.5 0.0-1.5 % GRANULOCYTES, IMMATURE (%) 0.9 0.0-0.9 % ABSOLUTE NEUTS 3.39 1.92-7.60 K/uL ABSOLUTE LYMPHS 1.45 0.72-4.10 K/uL ABSOLUTE MONOS 0.61 0.16-1.10 K/uL ABSOLUTE EOS 0.30 0.00-0.50 K/uL ABSOLUTE BASOS 0.03 0.00-0.15 K/uL GRANULOCYTES, IMMATURE 0.05 0.00-0.09 K/uL CBC Reviewed date:04/12/2025 08:47:00 AM Interpretation: Performing Lab: Notes/Report: WBC 5.14 4.00-11.00 K/uL RBC 2.58 4.50-5.90 M/uL L HGB 8.5 13.5-17.5 g/dL L HCT 27.1 41.0-53.0 % L MCV 105.0 80.0-100.0 fL H MCH 32.9 27.0-31.0 pg H MCHC 31.4 32.0-36.0 g/dL L RDW 14.8 11.5-14.5 % H MPV 9.0 8.4-12.0 fL PLT 173 150-450 K/uL NRBC 0.00 0.00 /100 WBCs ABSOLUTE NRBC 0.00 0.00 K/uL BASIC METABOLIC PANEL Reviewed date:04/12/2025 08:46:57 AM Interpretation: Performing Lab: Notes/Report: SODIUM 141 133-146 mmol/L CHLORIDE 107 96-108 mmol/L POTASSIUM 3.9 3.3-5.1 mmol/L CO2 26 21-35 mmol/L BUN 30 6-19 mg/dL H CREATININE 1.90 0.5-1.5 mg/dL H GLUCOSE 92 70-99 mg/dL CALCIUM 8.9 8.4-10.3 mg/dL EGFR 34 >59 mL/min/1.73m2 L Estimated glomerular filtration rate calculated using the CKD-EPI refit equation. ANION GAP 12 10-20 mmol/L Sedimentation rate (ESR) Reviewed date:04/12/2025 08:46:45 AM Interpretation: Performing Lab: Notes/Report: ESR 31 0-20 mm/h H CRP Reviewed date:04/12/2025 08:46:54 AM Interpretation: Performing Lab: Notes/Report: C REACTIVE PROTEIN 43.4 0.0-4.0 mg/L H Magnesium Reviewed date:04/12/2025 08:46:50 AM Interpretation: Performing Lab: Notes/Report: MAGNESIUM 1.9 1.6-2.6 mg/dL Phosphorus Reviewed date:04/12/2025 08:46:47 AM Interpretation: Performing Lab: Notes/Report: PHOSPHORUS 3.2 2.7-4.5 mg/dL CBC Reviewed date:04/13/2025 01:59:58 PM Interpretation: Performing Lab: Notes/Report: WBC 5.85 4.00-11.00 K/uL RBC 2.69 4.50-5.90 M/uL L HGB 9.1 13.5-17.5 g/dL L HCT 28.2 41.0-53.0 % L MCV 104.8 80.0-100.0 fL H MCH 33.8 27.0-31.0 pg H MCHC 32.3 32.0-36.0 g/dL RDW 14.6 11.5-14.5 % H MPV 8.8 8.4-12.0 fL PLT 179 150-450 K/uL NRBC 0.00 0.00 /100 WBCs ABSOLUTE NRBC 0.00 0.00 K/uL BASIC METABOLIC PANEL Reviewed date:04/13/2025 01:59:55 PM Interpretation: Performing Lab: Notes/Report: SODIUM 141 133-146 mmol/L CHLORIDE 105 96-108 mmol/L POTASSIUM 4.0 3.3-5.1 mmol/L Specimen slightly hemolyzed, result may be falsely elevated. CO2 26 21-35 mmol/L BUN 29 6-19 mg/dL H CREATININE 1.80 0.5-1.5 mg/dL H GLUCOSE 89 70-99 mg/dL CALCIUM 8.9 8.4-10.3 mg/dL EGFR 36 >59 mL/min/1.73m2 L Estimated glomerular filtration rate calculated using the CKD-EPI refit equation. ANION GAP 14 10-20 mmol/L Magnesium Reviewed date:04/13/2025 01:43:58 PM Interpretation: Performing Lab: Notes/Report: MAGNESIUM 1.9 1.6-2.6 mg/dL Phosphorus Reviewed date:04/13/2025 01:43:55 PM Interpretation: Performing Lab: Notes/Report: PHOSPHORUS 2.8 2.7-4.5 mg/dL Urinalysis w/reflex Urine Cu lture Reviewed date:11/23/2024 03:43:21 PM Interpretation: Performing Lab: Notes/Report: COLOR Yellow Yellow CLARITY Clear GLUCOSE Negative Negative BILI Negative Negative KETONES Negative Negative SPECIFIC GRAVITY 1.010 1.005-1.030 BLOOD Negative Negative PH 6.0 5.0-8.0 PROTEIN Negative Negative NITRITE Negative Negative LEUKOCYTE ESTERASE, UR Negative Negative PANDEMIC RESPIRATORY VIRAL O RDER (PRO) Reviewed date:11/23/2024 03:44:41 PM Interpretation: Performing Lab: Notes/Report: SARS-CoV-2 not detected Negative results do not preclude SARS-CoV-2 infection and should not be used as the sole basis for patient management decisions. Negative results must be combined with clinical observations, patient history, and epidemiological information. TEST ORDERED Rapid COVID, Flu has been ordered SPECIMEN SOURCE/DESCRIPTION NASOPHARYNGEAL SWAB INFLUENZA A PCR Not Detected Not Detected INFLUENZA B PCR Not Detected Not Detected SARS-COV 2 (COVID-19) PCR Not Detected Not Detected CT HEAD WITHOUT CONTRAST Reviewed date:11/23/2024 03:43:34 PM Interpretation: Performing Lab: Notes/Report: CT HEAD WITHOUT CONTRAST Referring clinician's provided indication for this examination in [facility]: * Headache, chronic, new features or increased frequency TECHNIQUE: CT of the head was performed without intravenous contrast using tailored dose modulation techniques. Images were reconstructed in the axial, coronal, and sagittal planes. COMPARISON: CT HEAD WITHOUT CONTRAST FINDINGS: Motion artifacts degrading the image quality. Brain Parenchyma: No midline shift, mass effect, parenchymal hemorrhage, or evidence of acute territorial infarct. Hypodensities in the periventricular white matter, likely a manifestation of chronic small vessel disease. Ventricular System and Extra-Axial Spaces: The ventricles and sulci are prominent. No extra-axial fluid collections. Basilar cisterns are patent. No hydrocephalus. Osseous and Extracranial Structures: No calvarial fracture or significant soft tissue hematoma. No significant paranasal sinus disease. Bilateral lens replacements. IMPRESSION: No acute intracranial findings within the limits of motion degraded study.. Interpreted by: Celia Gonzalez MBBS Signed by: Celia Gonzalez MBBS 11/23/24 Final result The patient reports with eye pain for the past couple of days. The patient states that his eyes have been watering, they have become more red, and he has had some hypersensitivity to light. The patient denies any vomiting, diarrhea, abdominal pain, back pain, or fevers. The patient is alert and oriented x 3 at this time. The patient has had no word finding difficulty, no slurred speech, no numbness or tingling. The patient recently finished a course of antibiotics for presumed sepsis and had a Crowley catheter pulled out this morning as well. He is getting IV ceftriaxone for his previous sepsis diagnosis at his longterm facility. [facility] STREPTOCOCCUS, GROUP A CULTU RE Reviewed date:12/20/2024 01:00:28 PM Interpretation: Performing Lab: Notes/Report: SPECIAL REQUESTS None GROUP A STREP CULTURE NEGATIVE FOR GRP A BETA STREPTOCOCCI COMP MET PANEL Reviewed date:12/20/2024 12:54:42 PM Interpretation: Performing Lab: Notes/Report: SODIUM 138 133-146 mmol/L POTASSIUM 3.8 3.3-5.1 mmol/L CHLORIDE 102 96-108 mmol/L CO2 26 21-35 mmol/L BUN 27 6-19 mg/dL H CREATININE 1.70 0.5-1.5 mg/dL H GLUCOSE 105 70-99 mg/dL H ALBUMIN 3.5 3.9-4.8 g/dL L TOTAL PROTEIN 6.8 6.5-8.0 g/dL CALCIUM 8.8 8.4-10.3 mg/dL ALKALINE PHOSPHATASE 61 39-117 U/L TOTAL BILIRUBIN 0.5 0.0-1.2 mg/dL AST 16 0-37 U/L ALT 11 0-40 U/L EGFR 39 >59 mL/min/1.73m2 L Estimated glomerular filtration rate calculated using the CKD-EPI refit equation. ANION GAP 14 10-20 mmol/L GLOBULIN 3.3 1-4.8 g/dL CBC AND DIFFERENTIAL Reviewed date:12/20/2024 12:55:11 PM Interpretation: Performing Lab: Notes/Report: WBC 5.22 4.00-11.00 K/uL RBC 2.94 4.50-5.90 M/uL L HGB 9.6 13.5-17.5 g/dL L HCT 31.8 41.0-53.0 % L PLT 190 150-450 K/uL MCV 108.2 80.0-100.0 fL H MCH 32.7 27.0-31.0 pg H MCHC 30.2 32.0-36.0 g/dL L RDW 19.1 11.5-14.5 % H MPV 9.0 8.4-12.0 fL NRBC 0.00 0.00 /100 WBCs ABSOLUTE NRBC 0.00 0.00 K/uL DIFF METHOD Auto NEUTS 52.2 48.0-76.0 % LYMPHS 32.4 18.0-41.0 % MONOS 9.4 4.0-11.0 % EOS 4.4 0.0-5.0 % BASOS 0.8 0.0-1.5 % GRANULOCYTES, IMMATURE (%) 0.8 0.0-0.9 % ABSOLUTE NEUTS 2.73 1.92-7.60 K/uL ABSOLUTE LYMPHS 1.69 0.72-4.10 K/uL ABSOLUTE MONOS 0.49 0.16-1.10 K/uL ABSOLUTE EOS 0.23 0.00-0.50 K/uL ABSOLUTE BASOS 0.04 0.00-0.15 K/uL GRANULOCYTES, IMMATURE 0.04 0.00-0.09 K/uL COMP MET PANEL Reviewed date:12/27/2024 12:55:09 PM Interpretation: Performing Lab: Notes/Report: SODIUM 140 133-146 mmol/L POTASSIUM 4.3 3.3-5.1 mmol/L CHLORIDE 104 96-108 mmol/L CO2 27 21-35 mmol/L BUN 30 6-19 mg/dL H CREATININE 1.70 0.5-1.5 mg/dL H GLUCOSE 92 70-99 mg/dL ALBUMIN 3.8 3.9-4.8 g/dL L TOTAL PROTEIN 6.7 6.5-8.0 g/dL CALCIUM 9.5 8.4-10.3 mg/dL ALKALINE PHOSPHATASE 56 39-117 U/L TOTAL BILIRUBIN 0.4 0.0-1.2 mg/dL AST 13 0-37 U/L ALT 7 0-40 U/L EGFR 39 >59 mL/min/1.73m2 L Estimated glomerular filtration rate calculated using the CKD-EPI refit equation. ANION GAP 13 10-20 mmol/L GLOBULIN 2.9 1-4.8 g/dL CBC AND DIFFERENTIAL Reviewed date:12/27/2024 12:55:13 PM Interpretation: Performing Lab: Notes/Report: WBC 4.72 4.00-11.00 K/uL RBC 2.91 4.50-5.90 M/uL L HGB 9.5 13.5-17.5 g/dL L HCT 29.9 41.0-53.0 % L PLT 182 150-450 K/uL MCV 102.7 80.0-100.0 fL H Confirmed b y repeat analysis. MCH 32.6 27.0-31.0 pg H MCHC 31.8 32.0-36.0 g/dL L RDW 18.8 11.5-14.5 % H MPV 9.3 8.4-12.0 fL NRBC 0.00 0.00 /100 WBCs ABSOLUTE NRBC 0.00 0.00 K/uL DIFF METHOD Auto NEUTS 50.1 48.0-76.0 % LYMPHS 30.3 18.0-41.0 % MONOS 13.8 4.0-11.0 % H EOS 4.4 0.0-5.0 % BASOS 0.8 0.0-1.5 % GRANULOCYTES, IMMATURE (%) 0.6 0.0-0.9 % ABSOLUTE NEUTS 2.36 1.92-7.60 K/uL ABSOLUTE LYMPHS 1.43 0.72-4.10 K/uL ABSOLUTE MONOS 0.65 0.16-1.10 K/uL ABSOLUTE EOS 0.21 0.00-0.50 K/uL ABSOLUTE BASOS 0.04 0.00-0.15 K/uL GRANULOCYTES, IMMATURE 0.03 0.00-0.09 K/uL COMP MET PANEL Reviewed date:01/03/2025 02:47:41 PM Interpretation: Performing Lab: Notes/Report: SODIUM 141 133-146 mmol/L POTASSIUM 4.0 3.3-5.1 mmol/L CHLORIDE 104 96-108 mmol/L CO2 25 21-35 mmol/L BUN 31 6-19 mg/dL H CREATININE 1.70 0.5-1.5 mg/dL H GLUCOSE 78 70-99 mg/dL ALBUMIN 3.8 3.9-4.8 g/dL L TOTAL PROTEIN 6.7 6.5-8.0 g/dL CALCIUM 9.3 8.4-10.3 mg/dL ALKALINE PHOSPHATASE 53 39-117 U/L TOTAL BILIRUBIN 0.4 0.0-1.2 mg/dL AST 14 0-37 U/L ALT 8 0-40 U/L EGFR 39 >59 mL/min/1.73m2 L Estimated glomerular filtration rate calculated using the CKD-EPI refit equation. ANION GAP 16 10-20 mmol/L GLOBULIN 2.9 1-4.8 g/dL CBC AND DIFFERENTIAL Reviewed date:01/03/2025 02:47:47 PM Interpretation: Performing Lab: Notes/Report: WBC 4.88 4.00-11.00 K/uL RBC 2.94 4.50-5.90 M/uL L HGB 9.7 13.5-17.5 g/dL L HCT 30.5 41.0-53.0 % L PLT 194 150-450 K/uL MCV 103.7 80.0-100.0 fL H MCH 33.0 27.0-31.0 pg H MCHC 31.8 32.0-36.0 g/dL L RDW 17.9 11.5-14.5 % H MPV 9.2 8.4-12.0 fL NRBC 0.00 0.00 /100 WBCs ABSOLUTE NRBC 0.00 0.00 K/uL DIFF METHOD Auto NEUTS 41.8 48.0-76.0 % L LYMPHS 41.4 18.0-41.0 % H MONOS 10.5 4.0-11.0 % EOS 5.1 0.0-5.0 % H BASOS 0.6 0.0-1.5 % GRANULOCYTES, IMMATURE (%) 0.6 0.0-0.9 % ABSOLUTE NEUTS 2.04 1.92-7.60 K/uL ABSOLUTE LYMPHS 2.02 0.72-4.10 K/uL ABSOLUTE MONOS 0.51 0.16-1.10 K/uL ABSOLUTE EOS 0.25 0.00-0.50 K/uL ABSOLUTE BASOS 0.03 0.00-0.15 K/uL GRANULOCYTES, IMMATURE 0.03 0.00-0.09 K/uL COMP MET PANEL Reviewed date:01/10/2025 04:04:15 PM Interpretation: Performing Lab: Notes/Report: SODIUM 139 133-146 mmol/L POTASSIUM 4.2 3.3-5.1 mmol/L CHLORIDE 103 96-108 mmol/L CO2 27 21-35 mmol/L BUN 26 6-19 mg/dL H CREATININE 1.90 0.5-1.5 mg/dL H GLUCOSE 83 70-99 mg/dL ALBUMIN 3.5 3.9-4.8 g/dL L TOTAL PROTEIN 6.2 6.5-8.0 g/dL L CALCIUM 9.0 8.4-10.3 mg/dL ALKALINE PHOSPHATASE 51 39-117 U/L TOTAL BILIRUBIN 0.4 0.0-1.2 mg/dL AST 13 0-37 U/L ALT 8 0-40 U/L EGFR 34 >59 mL/min/1.73m2 L Estimated glomerular filtration rate calculated using the CKD-EPI refit equation. ANION GAP 13 10-20 mmol/L GLOBULIN 2.7 1-4.8 g/dL BASIC METABOLIC PANEL Reviewed date:10/31/2024 03:00:29 PM Interpretation: Performing Lab: Notes/Report: SODIUM 142 133-146 mmol/L CHLORIDE 104 96-108 mmol/L POTASSIUM 4.1 3.3-5.1 mmol/L CO2 27 21-35 mmol/L BUN 38 6-19 mg/dL H CREATININE 2.30 0.5-1.5 mg/dL H GLUCOSE 113 70-99 mg/dL H CALCIUM 9.3 8.4-10.3 mg/dL EGFR 27 >59 mL/min/1.73m2 L Estimated glomerular filtration rate calculated using the CKD-EPI refit equation. ANION GAP 15 10-20 mmol/L PT-INR Reviewed date:10/31/2024 03:00:11 PM Interpretation: Performing Lab: Notes/Report: PT 13.3 10.2-12.9 sec H INR 1.2 0.9-1.1 H Therapeutic range for oral Vitamin K antagonists: 2.0-3.5 HEPATIC FUNCTION PANEL Reviewed date:10/31/2024 03:00:19 PM Interpretation: Performing Lab: Notes/Report: ALKALINE PHOSPHATASE 58 39-117 U/L TOTAL BILIRUBIN 0.8 0.0-1.2 mg/dL DIRECT BILIRUBIN <0.2 0-0.3 mg/dL BILIRUBIN (INDIRECT) NOT CALCULATED 0-1.5 mg/dL AST 15 0-37 U/L ALT 9 0-40 U/L TOTAL PROTEIN 7.8 6.5-8.0 g/dL ALBUMIN 3.8 3.9-4.8 g/dL L A/G RATIO 0.95 1.00-4.80 RATIO L GLOBULIN 4.0 1-4.8 g/dL BLOOD CULTURE Reviewed date:11/05/2024 06:58:47 PM Interpretation: Performing Lab: Notes/Report: SPECIAL REQUESTS None BLOOD CULTURE NO GROWTH 5 DAYS Lactate Reviewed date:10/31/2024 03:00:39 PM Interpretation: Performing Lab: Notes/Report: LACTATE 2.65 0.50-2.20 mmol/L H Lipase Reviewed date:10/31/2024 03:00:23 PM Interpretation: Performing Lab: Notes/Report: LIPASE 70 16-63 U/L H CBC AND DIFFERENTIAL Reviewed date:01/10/2025 04:07:53 PM Interpretation: Performing Lab: Notes/Report: WBC 5.07 4.00-11.00 K/uL RBC 2.85 4.50-5.90 M/uL L HGB 9.3 13.5-17.5 g/dL L HCT 29.4 41.0-53.0 % L PLT 178 150-450 K/uL MCV 103.2 80.0-100.0 fL H MCH 32.6 27.0-31.0 pg H MCHC 31.6 32.0-36.0 g/dL L RDW 17.8 11.5-14.5 % H MPV 9.5 8.4-12.0 fL NRBC 0.00 0.00 /100 WBCs ABSOLUTE NRBC 0.00 0.00 K/uL DIFF METHOD Auto NEUTS 43.6 48.0-76.0 % L LYMPHS 37.3 18.0-41.0 % MONOS 12.4 4.0-11.0 % H EOS 4.9 0.0-5.0 % BASOS 0.8 0.0-1.5 % GRANULOCYTES, IMMATURE (%) 1.0 0.0-0.9 % H ABSOLUTE NEUTS 2.21 1.92-7.60 K/uL ABSOLUTE LYMPHS 1.89 0.72-4.10 K/uL ABSOLUTE MONOS 0.63 0.16-1.10 K/uL ABSOLUTE EOS 0.25 0.00-0.50 K/uL ABSOLUTE BASOS 0.04 0.00-0.15 K/uL GRANULOCYTES, IMMATURE 0.05 0.00-0.09 K/uL Magnesium Reviewed date:10/31/2024 03:00:15 PM Interpretation: Performing Lab: Notes/Report: MAGNESIUM 1.8 1.6-2.6 mg/dL CBC AND DIFFERENTIAL Reviewed date:10/31/2024 03:00:32 PM Interpretation: Performing Lab: Notes/Report: WBC 18.66 4.00-11.00 K/uL H RBC 3.28 4.50-5.90 M/uL L HGB 11.0 13.5-17.5 g/dL L HCT 34.2 41.0-53.0 % L PLT 184 150-450 K/uL MCV 104.3 80.0-100.0 fL H MCH 33.5 27.0-31.0 pg H MCHC 32.2 32.0-36.0 g/dL RDW 15.7 11.5-14.5 % H MPV 9.1 8.4-12.0 fL NRBC 0.00 0.00 /100 WBCs ABSOLUTE NRBC 0.00 0.00 K/uL DIFF METHOD Auto NEUTS 85.0 48.0-76.0 % H LYMPHS 5.6 18.0-41.0 % L MONOS 7.6 4.0-11.0 % EOS 0.0 0.0-5.0 % BASOS 0.2 0.0-1.5 % GRANULOCYTES, IMMATURE (%) 1.6 0.0-0.9 % H ABSOLUTE NEUTS 15.89 1.92-7.60 K/uL H ABSOLUTE LYMPHS 1.04 0.72-4.10 K/uL ABSOLUTE MONOS 1.41 0.16-1.10 K/uL H ABSOLUTE EOS 0.00 0.00-0.50 K/uL ABSOLUTE BASOS 0.03 0.00-0.15 K/uL GRANULOCYTES, IMMATURE 0.29 0.00-0.09 K/uL H Urinalysis w/reflex Urine Cu lture Reviewed date:10/31/2024 03:03:11 PM Interpretation: Performing Lab: Notes/Report: COLOR Yellow Yellow CLARITY Clear GLUCOSE Negative Negative BILI Negative Negative KETONES Negative Negative SPECIFIC GRAVITY 1.020 1.005-1.030 BLOOD Trace Negative A PH 6.0 5.0-8.0 PROTEIN Trace Negative A NITRITE Negative Negative LEUKOCYTE ESTERASE, UR Negative Negative PANDEMIC RESPIRATORY VIRAL O RDER (PRO) Reviewed date:10/31/2024 03:00:46 PM Interpretation: Performing Lab: Notes/Report: SARS-CoV-2 not detected Negative results do not preclude SARS-CoV-2 infection and should not be used as the sole basis for patient management decisions. Negative results must be combined with clinical observations, patient history, and epidemiological information. TEST ORDERED COVID, Flu has been ordered SPECIMEN SOURCE/DESCRIPTION NASOPHARYNGEAL SWAB INFLUENZA A PCR Not Detected Not Detected INFLUENZA B PCR Not Detected Not Detected SARS-COV 2 (COVID-19) PCR Not Detected Not Detected POCT GLUCOSE Reviewed date:10/31/2024 03:03:16 PM Interpretation: Performing Lab: Notes/Report: GLUCOSE, POCT 113 70-100 mg/dL H CT HEAD WITHOUT CONTRAST Reviewed date:10/31/2024 03:00:08 PM Interpretation: Performing Lab: Notes/Report: CT HEAD WITHOUT CONTRAST Referring clinician's provided indication for this examination in [facility]: * Mental status change, unknown cause; * Head trauma, minor (Age >= 65y) TECHNIQUE: CT of the head was performed without intravenous contrast using tailored dose modulation techniques. Images were reconstructed in the axial, coronal, and sagittal planes. COMPARISON: CT abdomen June 01, 2024 FINDINGS: Brain Parenchyma: No midline shift, mass effect, parenchymal hemorrhage, or evidence of acute territorial infarct. 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 Hypodensities in the periventricular white matter, likely a manifestation of chronic small vessel disease. Ventricular System and Extra-Axial Spaces: There is ventriculomegaly with an acute callosal angle and crowding of sulci near the vertex similar the prior study. No extra-axial fluid collection. The basilar cisterns are patent. Osseous and Extracranial Structures: No calvarial fracture or significant soft tissue hematoma. There are small fluid levels within the right sphenoid and maxillary sinuses. The mastoids are clear. IMPRESSION: 1. No acute intracranial findings. 2. Moderate ventriculomegaly with morphology that suggest the possibility of normal pressure hydrocephalus. No interval change from June 01, 2024. Interpreted by: Sree Kaur DO Signed by: Sree Kaur DO 10/28/24 Final result Pt arrived via [facility]. Per EMS, reported pt had a fall at 4am, and was assessed by EMS and assisted back to bed. Per to EMS, pt with dementia at baseline but has been altered since fall. Pt arrives oriented to self, re-oriented to day, time, place. Pt skin noted to be flaky to feet. Pt skin to groin with erythema, pt inc stool and urine and brief worn into hospital wet with urine. Pt with noted cough, reports, I cough all the time. COMP MET PANEL Reviewed date:01/17/2025 02:47:13 PM Interpretation: Performing Lab: Notes/Report: SODIUM 141 133-146 mmol/L POTASSIUM 4.1 3.3-5.1 mmol/L CHLORIDE 104 96-108 mmol/L CO2 27 21-35 mmol/L BUN 29 6-19 mg/dL H CREATININE 1.80 0.5-1.5 mg/dL H GLUCOSE 84 70-99 mg/dL ALBUMIN 3.7 3.9-4.8 g/dL L TOTAL PROTEIN 6.7 6.5-8.0 g/dL CALCIUM 9.1 8.4-10.3 mg/dL ALKALINE PHOSPHATASE 55 39-117 U/L TOTAL BILIRUBIN 0.5 0.0-1.2 mg/dL AST 12 0-37 U/L ALT 6 0-40 U/L EGFR 36 >59 mL/min/1.73m2 L Estimated glomerular filtration rate calculated using the CKD-EPI refit equation. ANION GAP 14 10-20 mmol/L GLOBULIN 3.0 1-4.8 g/dL XR CHEST PORTABLE Reviewed date:10/31/2024 02:55:13 PM Interpretation: Performing Lab: Notes/Report: XR CHEST PORTABLE Referring clinician's provided indication for this examination in [facility]: Fever COMPARISON: CT CHEST WITHOUT CONTRAST ; XR CHEST PORTABLE FINDINGS: Devices/Tubes/Lines: None. Lungs: Low lung volumes. Overall similar mild vascular engorgement could be due to poor respiratory effort with mild edema not excluded. Subtle opacity in the periphery of the left lower lobe could be atelectasis.. Pleura: Minimal blunting of the left costophrenic sulcus. Heart/Mediastinum: Unchanged in appearance. Bones/Soft Tissues: Degenerative changes of the visualized spine. IMPRESSION: 1. Overall similar mild vascular engorgement could be due to poor respiratory effort with mild edema not excluded. 2. Possible trace effusion and adjacent opacity could be atelectasis with early pneumonia not excluded given reported fever. Interpreted by: Rossi Nascimento MD Signed by: Rossi Nascimento MD 10/28/24 Final result Lactate Reviewed date:10/31/2024 02:46:16 PM Interpretation: Performing Lab: Notes/Report: LACTATE 2.11 0.50-2.20 mmol/L BLOOD CULTURE Reviewed date:11/05/2024 06:58:13 PM Interpretation: Performing Lab: Notes/Report: Anaerobic bottle: STREPTOCOCCUS DYSGALACTIAE SS EQUISIMILIS SPECIAL REQUESTS None BLOOD CULTURE Critical Result. Res ults called to and read back by: Malorie Muhammad in W2 at 2108 A BLOOD CULTURE 5032STREPTOCOCCUS DYSGALACTIAE SS EQUISIMILISSTREPTOCOCCUS DYSGALACTIAE SS EQUISIMILIS A Penicillin G <=0.06 SS Ampicillin <=0.25 SS Cefotaxime <=0.12 SS Ceftriaxone <=0.12 SS Levofloxacin 0.5 SS Erythromycin <=0.12 SS Clindamycin <=0.25 SS Linezolid <=2 SS Vancomycin 0.5 SS Tetracycline <=0.25 SS CBC AND DIFFERENTIAL Reviewed date:01/17/2025 02:47:18 PM Interpretation: Performing Lab: Notes/Report: WBC 5.77 4.00-11.00 K/uL RBC 2.82 4.50-5.90 M/uL L HGB 9.3 13.5-17.5 g/dL L HCT 29.6 41.0-53.0 % L PLT 177 150-450 K/uL MCV 105.0 80.0-100.0 fL H MCH 33.0 27.0-31.0 pg H MCHC 31.4 32.0-36.0 g/dL L RDW 17.5 11.5-14.5 % H MPV 9.4 8.4-12.0 fL NRBC 0.00 0.00 /100 WBCs ABSOLUTE NRBC 0.00 0.00 K/uL DIFF METHOD Auto NEUTS 52.1 48.0-76.0 % LYMPHS 30.2 18.0-41.0 % MONOS 12.5 4.0-11.0 % H EOS 4.2 0.0-5.0 % BASOS 0.7 0.0-1.5 % GRANULOCYTES, IMMATURE (%) 0.3 0.0-0.9 % ABSOLUTE NEUTS 3.01 1.92-7.60 K/uL ABSOLUTE LYMPHS 1.74 0.72-4.10 K/uL ABSOLUTE MONOS 0.72 0.16-1.10 K/uL ABSOLUTE EOS 0.24 0.00-0.50 K/uL ABSOLUTE BASOS 0.04 0.00-0.15 K/uL GRANULOCYTES, IMMATURE 0.02 0.00-0.09 K/uL BASIC METABOLIC PANEL Reviewed date:02/22/2025 09:28:36 AM Interpretation: Performing Lab: Notes/Report: SODIUM 137 133-146 mmol/L CHLORIDE 102 96-108 mmol/L POTASSIUM 4.3 3.3-5.1 mmol/L Specimen slightly hemolyzed, result may be falsely elevated. CO2 28 21-35 mmol/L BUN 36 6-19 mg/dL H CREATININE 2.00 0.5-1.5 mg/dL H GLUCOSE 91 70-99 mg/dL CALCIUM 9.7 8.4-10.3 mg/dL EGFR 32 >59 mL/min/1.73m2 L Estimated glomerular filtration rate calculated using the CKD-EPI refit equation. ANION GAP 11 10-20 mmol/L HEPATIC FUNCTION PANEL Reviewed date:02/22/2025 09:28:23 AM Interpretation: Performing Lab: Notes/Report: ALKALINE PHOSPHATASE 58 39-117 U/L TOTAL BILIRUBIN 0.4 0.0-1.2 mg/dL DIRECT BILIRUBIN 0.1 0.0-0.2 mg/dL BILIRUBIN (INDIRECT) NOT CALCULATED 0-1.5 mg/dL AST 19 0-37 U/L ALT 9 0-40 U/L TOTAL PROTEIN 7.5 6.5-8.0 g/dL ALBUMIN 4.0 3.9-4.8 g/dL A/G RATIO 1.14 1.00-4.80 RATIO GLOBULIN 3.5 1-4.8 g/dL URINE MICROSCOPIC Reviewed date:02/22/2025 09:28:11 AM Interpretation: Performing Lab: Notes/Report: WBC TOO NUMEROUS TO COUNT NONE SEEN /hpf A RBC TOO NUMEROUS TO COUNT NONE SEEN /hpf A URINE EPITHELIAL 0-4 NONE SEEN A MUCUS NONE SEEN NONE SEEN /hpf BACTERIA 2+ NONE SEEN /hpf A CAST 0-2 GRANULAR CAST URINE CULTURE/SMEAR Reviewed date:02/23/2025 10:06:25 AM Interpretation: Performing Lab: Notes/Report: 10,000 to 100,000 colony forming units per mL ESCHERICHIA COLI SPECIAL REQUESTS None SPECIAL REQUESTS Reflexed from [id number] URINE CULTURE 202ESCHERICHIA COLIESCHERICHIA COLI A Ampicillin <=2 SS Amoxicillin + Clavulanate <=2 SS Ampicillin + Sulbactam <=2 SS Cefazolin <=4 SS Cefepime <=1 SS Ceftazidime <=1 SS Ceftriaxone <=1 SS Ciprofloxacin <=0.25 SS Gentamicin <=1 SS Levofloxacin <=0.12 SS Nitrofurantoin <=16 SS Piperacillin-tazobactam <=4 SS Trimethoprim/sulfamethoxa zole <=20 SS Lipase Reviewed date:02/22/2025 09:28:29 AM Interpretation: Performing Lab: Notes/Report: LIPASE 91 16-63 U/L H CBC AND DIFFERENTIAL Reviewed date:02/22/2025 09:28:48 AM Interpretation: Performing Lab: Notes/Report: WBC 7.03 4.00-11.00 K/uL RBC 3.07 4.50-5.90 M/uL L HGB 10.5 13.5-17.5 g/dL L HCT 32.6 41.0-53.0 % L PLT 189 150-450 K/uL MCV 106.2 80.0-100.0 fL H MCH 34.2 27.0-31.0 pg H MCHC 32.2 32.0-36.0 g/dL RDW 16.0 11.5-14.5 % H MPV 9.1 8.4-12.0 fL NRBC 0.00 0.00 /100 WBCs ABSOLUTE NRBC 0.00 0.00 K/uL DIFF METHOD Auto NEUTS 50.3 48.0-76.0 % LYMPHS 27.6 18.0-41.0 % MONOS 14.1 4.0-11.0 % H EOS 6.4 0.0-5.0 % H BASOS 0.7 0.0-1.5 % GRANULOCYTES, IMMATURE (%) 0.9 0.0-0.9 % ABSOLUTE NEUTS 3.54 1.92-7.60 K/uL ABSOLUTE LYMPHS 1.94 0.72-4.10 K/uL ABSOLUTE MONOS 0.99 0.16-1.10 K/uL ABSOLUTE EOS 0.45 0.00-0.50 K/uL ABSOLUTE BASOS 0.05 0.00-0.15 K/uL GRANULOCYTES, IMMATURE 0.06 0.00-0.09 K/uL Urinalysis w/reflex Urine Cu lture Reviewed date:02/22/2025 09:28:19 AM Interpretation: Performing Lab: Notes/Report: COLOR Yellow Yellow CLARITY HAZY GLUCOSE Negative Negative BILI Negative Negative KETONES Negative Negative SPECIFIC GRAVITY 1.020 1.005-1.030 BLOOD 3+ Negative A PH 6.0 5.0-8.0 PROTEIN 1+ Negative A NITRITE Positive Negative A LEUKOCYTE ESTERASE, UR 3+ Negative A URINE CULTURE/SMEAR Reviewed date:04/14/2025 07:22:04 PM Interpretation: Performing Lab: Notes/Report: 10,000 to 100,000 colony forming units per mL PROBABLE CORYNEBACTERIUM SPECIES >100,000 colony forming units per mL METHICILLIN RESISTANT STAPH AUREUS >100,000 colony forming units per mL ENTEROCOCCUS FAECALIS SPECIAL REQUESTS None SPECIAL REQUESTS Reflexed from [id number] URINE CULTURE [id number] CORYNEBACTERIUM SPECIESPROBABLE CORYNEBACTERIUM SPECIES URINE CULTURE 9321METHICILLIN RESI STANT STAPH AUREUSMETHICILLIN RESISTANT STAPH AUREUS A Penicillin G >=0.5 R Gentamicin <=0.5 SS Levofloxacin >=8 NI Linezolid 2 SS Nitrofurantoin <=16 NI Oxacillin(methicillin) >=4 NI Rifampin <=0.5 NI Tetracycline <=1 NI Trimethoprim/sulfamethoxa zole <=10 NI Vancomycin 1 SS URINE CULTURE 189ENTEROCOCCUS FAECALISENTEROCOCCUS FAECALIS A Ampicillin <=2 SS Penicillin G 2 SS Levofloxacin >=8 R Nitrofurantoin <=16 SS Tetracycline >=16 R Vancomycin 1 SS COMP MET PANEL Reviewed date:11/11/2024 07:46:46 PM Interpretation: Performing Lab: Notes/Report: SODIUM 136 133-146 mmol/L POTASSIUM 4.6 3.3-5.1 mmol/L CHLORIDE 96 96-108 mmol/L CO2 25 21-35 mmol/L BUN 55 6-19 mg/dL H CREATININE 2.00 0.5-1.5 mg/dL H GLUCOSE 108 70-99 mg/dL H ALBUMIN 4.2 3.9-4.8 g/dL TOTAL PROTEIN 8.1 6.5-8.0 g/dL H CALCIUM 9.9 8.4-10.3 mg/dL ALKALINE PHOSPHATASE 72 39-117 U/L TOTAL BILIRUBIN 0.5 0.0-1.2 mg/dL AST 24 0-37 U/L ALT 18 0-40 U/L EGFR 32 >59 mL/min/1.73m2 L Estimated glomerular filtration rate calculated using the CKD-EPI refit equation. ANION GAP 20 10-20 mmol/L GLOBULIN 3.9 1-4.8 g/dL CBC AND DIFFERENTIAL Reviewed date:11/11/2024 07:46:43 PM Interpretation: Performing Lab: Notes/Report: WBC 13.35 4.00-11.00 K/uL H RBC 3.59 4.50-5.90 M/uL L HGB 11.7 13.5-17.5 g/dL L HCT 36.8 41.0-53.0 % L PLT 339 150-450 K/uL MCV 102.5 80.0-100.0 fL H MCH 32.6 27.0-31.0 pg H MCHC 31.8 32.0-36.0 g/dL L RDW 15.3 11.5-14.5 % H MPV 8.8 8.4-12.0 fL NRBC 0.00 0.00 /100 WBCs ABSOLUTE NRBC 0.00 0.00 K/uL DIFF METHOD Auto NEUTS 77.7 48.0-76.0 % H LYMPHS 10.9 18.0-41.0 % L MONOS 8.1 4.0-11.0 % EOS 2.1 0.0-5.0 % BASOS 0.4 0.0-1.5 % GRANULOCYTES, IMMATURE (%) 0.8 0.0-0.9 % ABSOLUTE NEUTS 10.37 1.92-7.60 K/uL H ABSOLUTE LYMPHS 1.46 0.72-4.10 K/uL ABSOLUTE MONOS 1.08 0.16-1.10 K/uL ABSOLUTE EOS 0.28 0.00-0.50 K/uL ABSOLUTE BASOS 0.05 0.00-0.15 K/uL GRANULOCYTES, IMMATURE 0.11 0.00-0.09 K/uL H BASIC METABOLIC PANEL Reviewed date:11/14/2024 08:48:36 PM Interpretation: Performing Lab: Notes/Report: SODIUM 134 133-146 mmol/L CHLORIDE 93 96-108 mmol/L L POTASSIUM 4.5 3.3-5.1 mmol/L CO2 24 21-35 mmol/L BUN 71 6-19 mg/dL H CREATININE 2.70 0.5-1.5 mg/dL H GLUCOSE 110 70-99 mg/dL H CALCIUM 9.4 8.4-10.3 mg/dL EGFR 22 >59 mL/min/1.73m2 L Estimated glomerular filtration rate calculated using the CKD-EPI refit equation. ANION GAP 22 10-20 mmol/L H CBC AND DIFFERENTIAL Reviewed date:11/14/2024 08:48:41 PM Interpretation: Performing Lab: Notes/Report: WBC 8.42 4.00-11.00 K/uL RBC 3.33 4.50-5.90 M/uL L HGB 11.1 13.5-17.5 g/dL L HCT 33.1 41.0-53.0 % L PLT 291 150-450 K/uL MCV 99.4 80.0-100.0 fL MCH 33.3 27.0-31.0 pg H MCHC 33.5 32.0-36.0 g/dL RDW 15.4 11.5-14.5 % H MPV 9.1 8.4-12.0 fL NRBC 0.00 0.00 /100 WBCs ABSOLUTE NRBC 0.00 0.00 K/uL DIFF METHOD Auto NEUTS 72.1 48.0-76.0 % LYMPHS 13.9 18.0-41.0 % L MONOS 12.8 4.0-11.0 % H EOS 0.0 0.0-5.0 % BASOS 0.2 0.0-1.5 % GRANULOCYTES, IMMATURE (%) 1.0 0.0-0.9 % H ABSOLUTE NEUTS 6.07 1.92-7.60 K/uL ABSOLUTE LYMPHS 1.17 0.72-4.10 K/uL ABSOLUTE MONOS 1.08 0.16-1.10 K/uL ABSOLUTE EOS 0.00 0.00-0.50 K/uL ABSOLUTE BASOS 0.02 0.00-0.15 K/uL GRANULOCYTES, IMMATURE 0.08 0.00-0.09 K/uL BASIC METABOLIC PANEL Reviewed date:11/12/2024 01:49:30 PM Interpretation: Performing Lab: Notes/Report: SODIUM 140 133-146 mmol/L CHLORIDE 98 96-108 mmol/L POTASSIUM 3.9 3.3-5.1 mmol/L CO2 25 21-35 mmol/L BUN 74 6-19 mg/dL H CREATININE 2.60 0.5-1.5 mg/dL H GLUCOSE 128 70-99 mg/dL H CALCIUM 9.6 8.4-10.3 mg/dL EGFR 23 >59 mL/min/1.73m2 L Estimated glomerular filtration rate calculated using the CKD-EPI refit equation. ANION GAP 21 10-20 mmol/L H HEPATIC FUNCTION PANEL Reviewed date:11/12/2024 01:49:22 PM Interpretation: Performing Lab: Notes/Report: ALKALINE PHOSPHATASE 67 39-117 U/L TOTAL BILIRUBIN 0.4 0.0-1.2 mg/dL DIRECT BILIRUBIN <0.2 0-0.3 mg/dL BILIRUBIN (INDIRECT) NOT CALCULATED 0-1.5 mg/dL AST 21 0-37 U/L ALT 14 0-40 U/L TOTAL PROTEIN 8.2 6.5-8.0 g/dL H ALBUMIN 3.5 3.9-4.8 g/dL L A/G RATIO 0.74 1.00-4.80 RATIO L GLOBULIN 4.7 1-4.8 g/dL PROCALCITONIN Reviewed date:04/10/2025 08:05:21 PM Interpretation: Performing Lab: Notes/Report: <=0.25 ng/mL: Bacterial pneumonia is unlikely. <0.5 [...] the [facility] Procalcitonin Guidelines, available at http://[email or web address].mgb.org/3817/Content/4-138-251 PROCALCITONIN 1.01 0.00-0.25 ng/mL H PANDEMIC RESPIRATORY VIRAL O RDER (PRO) Reviewed date:04/10/2025 08:05:50 PM Interpretation: Performing Lab: Notes/Report: SARS-CoV-2 not detected Negative results do not preclude SARS-CoV-2 infection and should not be used as the sole basis for patient management decisions. Negative results must be combined with clinical observations, patient history, and epidemiological information. TEST ORDERED Rapid COVID, Flu has been ordered SPECIMEN SOURCE/DESCRIPTION NASOPHARYNGEAL SWAB INFLUENZA A PCR Not Detected Not Detected INFLUENZA B PCR Not Detected Not Detected SARS-COV 2 (COVID-19) PCR Not Detected Not Detected CT ABDOMEN/PELVIS WITHOUT CO NTRAST Reviewed date:04/10/2025 08:05:16 PM Interpretation: Performing Lab: Notes/Report: CT ABDOMEN/PELVIS WITHOUT CONTRAST Referring clinician's provided [...] IMPRESSION: Circumferential bladder wall thickening with surrounding inflammatory stranding, intraluminal gas, and possible foci of intramural gas likely reflecting cystitis, possible emphysematous cystitis. Recommended correlation with history of recent catheterization given known chronic Crowley use. ATTESTATION: I, Dr. Christian Alan as teaching physician, have reviewed the images for this case and if necessary edited the report originally created by Jose Goel M.D.. Interpreted by: Christian Bah MD Nguyen, Phat, MD Signed by: Christian Bah MD 04/09/25 Final result [facility] XR CHEST PORTABLE Reviewed date:04/10/2025 08:06:23 PM Interpretation: Performing Lab: Notes/Report: XR CHEST PORTABLE Referring clinician's provided indication for this examination in Epic: Fatigue COMPARISON: XR CHEST PORTABLE ; CT CHEST WITHOUT CONTRAST FINDINGS: Devices/Tubes/Lines: None. Lungs: Low lung volumes. No focal consolidation or pulmonary edema. Pleura: No pleural effusion or pneumothorax. Heart/Mediastinum: Unchanged in appearance. Bones/Soft Tissues: Degenerative changes of thoracic spine and bilateral shoulders. IMPRESSION: No focal consolidation or pulmonary edema. Interpreted by: Rossi Nascimento MD Signed by: Rossi Nascimento MD 04/09/25 Final result P.s. fever [facility] Lactate Reviewed date:04/10/2025 08:05:13 PM Interpretation: Performing Lab: Notes/Report: LACTATE 2.02 0.50-2.20 mmol/L Lactate Reviewed date:04/10/2025 08:05:10 PM Interpretation: Performing Lab: Notes/Report: LACTATE 2.03 0.50-2.20 mmol/L Troponin T Reviewed date:04/10/2025 08:05:07 PM Interpretation: Performing Lab: Notes/Report: TROPONIN-T, HS GEN5 32 0-14 ng/L H BLOOD CULTURE Reviewed date:04/12/2025 09:33:05 AM Interpretation: Performing Lab: Notes/Report: Aerobic and Anaerobic bottles: METHICILLIN RESISTANT STAPH AUREUS SEE EARLIER CULTURE FOR SENSITIVITIES Aerobic and Anaerobic bottles: ENTEROCOCCUS FAECALIS SEE EARLIER CULTURE FOR SENSITIVITIES SPECIAL REQUESTS None BLOOD CULTURE 9321METHICILLIN RESI STANT STAPH AUREUSMETHICILLIN RESISTANT STAPH AUREUS A BLOOD CULTURE 189ENTEROCOCCUS FAECALISENTEROCOCCUS FAECALIS A BLOOD CULTURE Critical Result. Res ults called to and read back by: Reji HOLLINS, 0415 X2 A COMP MET PANEL Reviewed date:04/10/2025 08:04:58 PM Interpretation: Performing Lab: Notes/Report: SODIUM 141 133-146 mmol/L POTASSIUM 4.2 3.3-5.1 mmol/L CHLORIDE 106 96-108 mmol/L CO2 25 21-35 mmol/L BUN 33 6-19 mg/dL H CREATININE 2.00 0.5-1.5 mg/dL H GLUCOSE 93 70-99 mg/dL ALBUMIN 3.4 3.9-4.8 g/dL L TOTAL PROTEIN 6.6 6.5-8.0 g/dL CALCIUM 9.1 8.4-10.3 mg/dL ALKALINE PHOSPHATASE 56 39-117 U/L TOTAL BILIRUBIN 0.6 0.0-1.2 mg/dL AST 15 0-37 U/L ALT 8 0-40 U/L EGFR 32 >59 mL/min/1.73m2 L Estimated glomerular filtration rate calculated using the CKD-EPI refit equation. ANION GAP 14 10-20 mmol/L GLOBULIN 3.2 1-4.8 g/dL Magnesium Reviewed date:04/10/2025 08:04:55 PM Interpretation: Performing Lab: Notes/Report: MAGNESIUM 1.8 1.6-2.6 mg/dL Phosphorus Reviewed date:04/10/2025 08:04:52 PM Interpretation: Performing Lab: Notes/Report: PHOSPHORUS 3.3 2.7-4.5 mg/dL BLOOD CULTURE Reviewed date:04/17/2025 04:18:35 PM Interpretation: Performing Lab: Notes/Report: SPECIAL REQUESTS None BLOOD CULTURE NO GROWTH 5 DAYS MRSA PCR screen Reviewed date:04/11/2025 04:31:35 PM Interpretation: Performing Lab: Notes/Report: MRSA PCR SCREEN Negative Negative The Xpert MRSA Assay is intended to aid in the prevention and control of MRSA infections in healthcare settings. The assay is not intended to diagnose nor to guide or monitor treatment for MRSA infections. Vancomycin, trough Reviewed date:04/11/2025 04:31:38 PM Interpretation: Performing Lab: Notes/Report: VANCOMYCIN,TROUGH 11.1 10.0-20.0 ug/mL Interpretation : Therapeutic Range: 10.0 - 20.0 ug/ml. Toxic: Greater than 30.0 ug/ml. PANDEMIC RESPIRATORY VIRAL O RDER (PRO) Reviewed date:04/11/2025 04:31:41 PM Interpretation: Performing Lab: Notes/Report: SARS-CoV-2 not detected Negative results do not preclude SARS-CoV-2 infection and should not be used as the sole basis for patient management decisions. Negative results must be combined with clinical observations, patient history, and epidemiological information. This test has been authorized by the FDA under an Emergency Use Authorization (EUA) for use by authorized laboratories. TEST ORDERED COVID has been ordered SPECIMEN SOURCE/DESCRIPTION [facility] SARS-COV 2 (COVID-19) PCR Negative Negative BLOOD CULTURE Reviewed date:04/17/2025 04:18:03 PM Interpretation: Performing Lab: Notes/Report: SPECIAL REQUESTS None BLOOD CULTURE NO GROWTH 5 DAYS CBC Reviewed date:04/14/2025 07:14:09 PM Interpretation: Performing Lab: Notes/Report: WBC 7.20 4.00-11.00 K/uL RBC 2.79 4.50-5.90 M/uL L HGB 9.4 13.5-17.5 g/dL L HCT 28.8 41.0-53.0 % L MCV 103.2 80.0-100.0 fL H MCH 33.7 27.0-31.0 pg H MCHC 32.6 32.0-36.0 g/dL RDW 14.3 11.5-14.5 % MPV 8.8 8.4-12.0 fL PLT 186 150-450 K/uL NRBC 0.00 0.00 /100 WBCs ABSOLUTE NRBC 0.00 0.00 K/uL BASIC METABOLIC PANEL Reviewed date:04/14/2025 07:14:04 PM Interpretation: Performing Lab: Notes/Report: SODIUM 140 133-146 mmol/L CHLORIDE 106 96-108 mmol/L POTASSIUM 4.0 3.3-5.1 mmol/L CO2 26 21-35 mmol/L BUN 28 6-19 mg/dL H CREATININE 1.70 0.5-1.5 mg/dL H GLUCOSE 87 70-99 mg/dL CALCIUM 9.0 8.4-10.3 mg/dL EGFR 39 >59 mL/min/1.73m2 L Estimated glomerular filtration rate calculated using the CKD-EPI refit equation. ANION GAP 12 10-20 mmol/L Magnesium Reviewed date:04/14/2025 07:13:58 PM Interpretation: Performing Lab: Notes/Report: MAGNESIUM 2.0 1.6-2.6 mg/dL Phosphorus Reviewed date:04/14/2025 07:13:54 PM Interpretation: Performing Lab: Notes/Report: PHOSPHORUS 2.9 2.7-4.5 mg/dL COMP MET PANEL Reviewed date:12/09/2024 04:45:07 PM Interpretation: Performing Lab: Notes/Report: SODIUM 143 133-146 mmol/L POTASSIUM 4.1 3.3-5.1 mmol/L CHLORIDE 106 96-108 mmol/L CO2 28 21-35 mmol/L BUN 29 6-19 mg/dL H CREATININE 1.90 0.5-1.5 mg/dL H GLUCOSE 129 70-99 mg/dL H ALBUMIN 3.5 3.9-4.8 g/dL L TOTAL PROTEIN 6.7 6.5-8.0 g/dL CALCIUM 8.8 8.4-10.3 mg/dL ALKALINE PHOSPHATASE 66 39-117 U/L TOTAL BILIRUBIN 0.3 0.0-1.2 mg/dL AST 16 0-37 U/L ALT 11 0-40 U/L EGFR 34 >59 mL/min/1.73m2 L Estimated glomerular filtration rate calculated using the CKD-EPI refit equation. ANION GAP 13 10-20 mmol/L GLOBULIN 3.2 1-4.8 g/dL CBC AND DIFFERENTIAL Reviewed date:12/09/2024 04:45:12 PM Interpretation: Performing Lab: Notes/Report: WBC 5.08 4.00-11.00 K/uL RBC 2.96 4.50-5.90 M/uL L HGB 9.5 13.5-17.5 g/dL L HCT 30.5 41.0-53.0 % L PLT 197 150-450 K/uL MCV 103.0 80.0-100.0 fL H MCH 32.1 27.0-31.0 pg H MCHC 31.1 32.0-36.0 g/dL L RDW 19.1 11.5-14.5 % H MPV 9.1 8.4-12.0 fL NRBC 0.00 0.00 /100 WBCs ABSOLUTE NRBC 0.00 0.00 K/uL DIFF METHOD Auto NEUTS 56.9 48.0-76.0 % LYMPHS 25.6 18.0-41.0 % MONOS 11.2 4.0-11.0 % H EOS 5.1 0.0-5.0 % H BASOS 0.6 0.0-1.5 % GRANULOCYTES, IMMATURE (%) 0.6 0.0-0.9 % ABSOLUTE NEUTS 2.89 1.92-7.60 K/uL ABSOLUTE LYMPHS 1.30 0.72-4.10 K/uL ABSOLUTE MONOS 0.57 0.16-1.10 K/uL ABSOLUTE EOS 0.26 0.00-0.50 K/uL ABSOLUTE BASOS 0.03 0.00-0.15 K/uL GRANULOCYTES, IMMATURE 0.03 0.00-0.09 K/uL COMP MET PANEL Reviewed date:12/17/2024 01:33:44 PM Interpretation: Performing Lab: Notes/Report: SODIUM 143 133-146 mmol/L POTASSIUM 4.0 3.3-5.1 mmol/L CHLORIDE 105 96-108 mmol/L CO2 28 21-35 mmol/L BUN 26 6-19 mg/dL H CREATININE 1.70 0.5-1.5 mg/dL H GLUCOSE 101 70-99 mg/dL H ALBUMIN 3.2 3.9-4.8 g/dL L TOTAL PROTEIN 6.4 6.5-8.0 g/dL L CALCIUM 8.6 8.4-10.3 mg/dL ALKALINE PHOSPHATASE 64 39-117 U/L TOTAL BILIRUBIN 0.3 0.0-1.2 mg/dL AST 15 0-37 U/L ALT 11 0-40 U/L EGFR 39 >59 mL/min/1.73m2 L Estimated glomerular filtration rate calculated using the CKD-EPI refit equation. ANION GAP 14 10-20 mmol/L GLOBULIN 3.2 1-4.8 g/dL CBC AND DIFFERENTIAL Reviewed date:12/17/2024 01:33:40 PM Interpretation: Performing Lab: Notes/Report: WBC 4.63 4.00-11.00 K/uL RBC 2.76 4.50-5.90 M/uL L HGB 8.9 13.5-17.5 g/dL L HCT 28.7 41.0-53.0 % L PLT 187 150-450 K/uL MCV 104.0 80.0-100.0 fL H MCH 32.2 27.0-31.0 pg H MCHC 31.0 32.0-36.0 g/dL L RDW 18.9 11.5-14.5 % H MPV 9.1 8.4-12.0 fL NRBC 0.00 0.00 /100 WBCs ABSOLUTE NRBC 0.00 0.00 K/uL DIFF METHOD Auto NEUTS 44.6 48.0-76.0 % L LYMPHS 38.7 18.0-41.0 % MONOS 11.7 4.0-11.0 % H EOS 3.5 0.0-5.0 % BASOS 0.9 0.0-1.5 % GRANULOCYTES, IMMATURE (%) 0.6 0.0-0.9 % ABSOLUTE NEUTS 2.07 1.92-7.60 K/uL ABSOLUTE LYMPHS 1.79 0.72-4.10 K/uL ABSOLUTE MONOS 0.54 0.16-1.10 K/uL ABSOLUTE EOS 0.16 0.00-0.50 K/uL ABSOLUTE BASOS 0.04 0.00-0.15 K/uL GRANULOCYTES, IMMATURE 0.03 0.00-0.09 K/uL BASIC METABOLIC PANEL Reviewed date:04/29/2025 02:51:47 PM Interpretation: Performing Lab: Notes/Report: SODIUM 144 133-146 mmol/L CHLORIDE 106 96-108 mmol/L POTASSIUM 4.3 3.3-5.1 mmol/L CO2 25 21-35 mmol/L BUN 42 6-19 mg/dL H CREATININE 2.10 0.5-1.5 mg/dL H GLUCOSE 116 70-99 mg/dL H CALCIUM 9.1 8.4-10.3 mg/dL EGFR 30 >59 mL/min/1.73m2 L Estimated glomerular filtration rate calculated using the CKD-EPI refit equation. ANION GAP 17 10-20 mmol/L HEPATIC FUNCTION PANEL Reviewed date:04/29/2025 02:51:37 PM Interpretation: Performing Lab: Notes/Report: ALKALINE PHOSPHATASE 54 39-117 U/L TOTAL BILIRUBIN 0.4 0.0-1.2 mg/dL DIRECT BILIRUBIN 0.2 0.0-0.2 mg/dL BILIRUBIN (INDIRECT) 0.2 0-1.5 mg/dL AST 16 0-37 U/L ALT 16 0-40 U/L TOTAL PROTEIN 7.1 6.5-8.0 g/dL ALBUMIN 3.8 3.9-4.8 g/dL L A/G RATIO 1.15 1.00-4.80 RATIO GLOBULIN 3.3 1-4.8 g/dL URINE MICROSCOPIC Reviewed date:04/29/2025 02:50:59 PM Interpretation: Performing Lab: Notes/Report: WBC 11-20 NONE SEEN /hpf A RBC 11-20 NONE SEEN /hpf A URINE EPITHELIAL 0-4 NONE SEEN A MUCUS Trace NONE SEEN /hpf A BACTERIA Trace NONE SEEN /hpf A URINE CULTURE/SMEAR Reviewed date:05/02/2025 07:55:43 AM Interpretation: Performing Lab: Notes/Report: >100,000 colony forming units per mL KLEBSIELLA PNEUMONIAE SPECIAL REQUESTS None SPECIAL REQUESTS Reflexed from [id number] URINE CULTURE 534KLEBSIELLA PNEUMONIAEKLEBSIELLA PNEUMONIAE A Ampicillin 16 R Amoxicillin + Clavulanate 4 SS Ampicillin + Sulbactam 8 SS Cefazolin <=4 SS Cefepime <=1 SS Ceftazidime <=1 SS Ceftriaxone <=1 SS Ciprofloxacin <=0.25 SS Gentamicin <=1 SS Levofloxacin 1 SS Nitrofurantoin 128 R Piperacillin-tazobactam 16 SS Trimethoprim/sulfamethoxa zole <=20 SS STREPTOCOCCUS, GROUP A CULTU RE Reviewed date:12/25/2024 11:25:40 AM Interpretation: Performing Lab: Notes/Report: SPECIAL REQUESTS None GROUP A STREP CULTURE NEGATIVE FOR GRP A BETA STREPTOCOCCI Urinalysis w/reflex Urine Cu lture Reviewed date:12/22/2024 09:59:59 AM Interpretation: Performing Lab: Notes/Report: COLOR Yellow Yellow CLARITY Clear GLUCOSE Negative Negative BILI Negative Negative KETONES Negative Negative SPECIFIC GRAVITY 1.010 1.005-1.030 BLOOD Negative Negative PH 6.0 5.0-8.0 PROTEIN Negative Negative NITRITE Negative Negative LEUKOCYTE ESTERASE, UR Negative Negative BLOOD CULTURE Reviewed date:05/04/2025 09:10:50 AM Interpretation: Performing Lab: Notes/Report: SPECIAL REQUESTS None BLOOD CULTURE NO GROWTH 5 DAYS Lactate Reviewed date:04/29/2025 02:52:05 PM Interpretation: Performing Lab: Notes/Report: Critical value: Results called to and read back by: Sia Becerra ED [id number] LACTATE 3.99 0.50-2.20 mmol/L HH Magnesium Reviewed date:04/29/2025 02:51:32 PM Interpretation: Performing Lab: Notes/Report: MAGNESIUM 1.8 1.6-2.6 mg/dL CBC AND DIFFERENTIAL Reviewed date:04/29/2025 02:51:55 PM Interpretation: Performing Lab: Notes/Report: WBC 8.77 4.00-11.00 K/uL RBC 2.52 4.50-5.90 M/uL L HGB 8.5 13.5-17.5 g/dL L HCT 26.7 41.0-53.0 % L PLT 115 150-450 K/uL L MCV 106.0 80.0-100.0 fL H MCH 33.7 27.0-31.0 pg H MCHC 31.8 32.0-36.0 g/dL L RDW 14.0 11.5-14.5 % MPV 8.9 8.4-12.0 fL NRBC 0.00 0.00 /100 WBCs ABSOLUTE NRBC 0.00 0.00 K/uL DIFF METHOD Auto NEUTS 83.8 48.0-76.0 % H LYMPHS 6.0 18.0-41.0 % L MONOS 7.9 4.0-11.0 % EOS 1.4 0.0-5.0 % BASOS 0.3 0.0-1.5 % GRANULOCYTES, IMMATURE (%) 0.6 0.0-0.9 % ABSOLUTE NEUTS 7.35 1.92-7.60 K/uL ABSOLUTE LYMPHS 0.53 0.72-4.10 K/uL L ABSOLUTE MONOS 0.69 0.16-1.10 K/uL ABSOLUTE EOS 0.12 0.00-0.50 K/uL ABSOLUTE BASOS 0.03 0.00-0.15 K/uL GRANULOCYTES, IMMATURE 0.05 0.00-0.09 K/uL Urinalysis w/reflex Urine Cu lture Reviewed date:04/29/2025 02:51:07 PM Interpretation: Performing Lab: Notes/Report: COLOR Yellow Yellow CLARITY Clear GLUCOSE Negative Negative BILI Negative Negative KETONES Negative Negative SPECIFIC GRAVITY 1.010 1.005-1.030 BLOOD 2+ Negative A PH 6.0 5.0-8.0 PROTEIN Trace Negative A NITRITE Positive Negative A LEUKOCYTE ESTERASE, UR Trace Negative A PANDEMIC RESPIRATORY VIRAL O RDER (PRO) Reviewed date:04/29/2025 02:50:50 PM Interpretation: Performing Lab: Notes/Report: SARS-CoV-2 not detected Negative results do not preclude SARS-CoV-2 infection and should not be used as the sole basis for patient management decisions. Negative results must be combined with clinical observations, patient history, and epidemiological information. TEST ORDERED Rapid COVID, Flu has been ordered SPECIMEN SOURCE/DESCRIPTION NASOPHARYNGEAL SWAB INFLUENZA A PCR Not Detected Not Detected INFLUENZA B PCR Not Detected Not Detected SARS-COV 2 (COVID-19) PCR Not Detected Not Detected CT ABDOMEN/PELVIS WITH CONTR AST Reviewed date:04/29/2025 02:50:45 PM Interpretation: Performing Lab: Notes/Report: CT ABDOMEN/PELVIS WITH CONTRAST TECHNIQUE: Multidetector-row CT [...] Multilevel spinal degeneration. No suspicious bony lesions. IMPRESSION: 1. Above findings suggestive of cystitis. Gas within the urinary bladder may be related to recent instrumentation or emphysematous cystitis. Correlation with urinalysis suggested. Interpreted by: Sree Calvillo DO Signed by: Sree Calvillo DO 04/29/25 Final result Pt presents to ED with fever/concern for sepsis. Recent suprapubic catheter placement 04/13. Was lift assist at home today d/t weakness. Hx dementia, non contributory to triage. Febrile to 101.2F rectal on arrival. Imaging Center [facility] XR CHEST PORTABLE Reviewed date:04/29/2025 02:51:16 PM Interpretation: Performing Lab: Notes/Report: XR CHEST PORTABLE Referring clinician's provided indication for this examination in [facility]: Dyspnea (Shortness of Breath) COMPARISON: XR [...] the report originally created by Lucinda Tillman. Interpreted by: Sree Calvillo DO Walker, Stephanie M, MD Signed by: Sree Calvillo DO 04/29/25 Final result [facility] Lactate Reviewed date:04/29/2025 02:50:38 PM Interpretation: Performing Lab: Notes/Report: LACTATE 2.75 0.50-2.20 mmol/L H BLOOD CULTURE Reviewed date:05/04/2025 09:10:47 AM Interpretation: Performing Lab: Notes/Report: SPECIAL REQUESTS None BLOOD CULTURE NO GROWTH 5 DAYS CBC Reviewed date:04/30/2025 08:31:09 AM Interpretation: Performing Lab: Notes/Report: WBC 5.27 4.00-11.00 K/uL RBC 2.03 4.50-5.90 M/uL L HGB 6.8 13.5-17.5 g/dL LL This result has been called to Reji HOLLINS by CRISTINA on 04/30/2025 07:05:22, and has been read back. HCT 21.0 41.0-53.0 % L MCV 103.4 80.0-100.0 fL H MCH 33.5 27.0-31.0 pg H MCHC 32.4 32.0-36.0 g/dL RDW 14.0 11.5-14.5 % MPV 9.4 8.4-12.0 fL PLT 79 150-450 K/uL L NRBC 0.00 0.00 /100 WBCs ABSOLUTE NRBC 0.00 0.00 K/uL BASIC METABOLIC PANEL Reviewed date:04/30/2025 08:31:17 AM Interpretation: Performing Lab: Notes/Report: SODIUM 141 133-146 mmol/L CHLORIDE 105 96-108 mmol/L POTASSIUM 3.9 3.3-5.1 mmol/L CO2 24 21-35 mmol/L BUN 33 6-19 mg/dL H CREATININE 2.00 0.5-1.5 mg/dL H GLUCOSE 87 70-99 mg/dL CALCIUM 8.7 8.4-10.3 mg/dL EGFR 32 >59 mL/min/1.73m2 L Estimated glomerular filtration rate calculated using the CKD-EPI refit equation. ANION GAP 16 10-20 mmol/L LDH Reviewed date:04/30/2025 08:31:04 AM Interpretation: Performing Lab: Notes/Report: LDH 121 118-273 U/L LAB ADD ON Reviewed date:04/30/2025 08:31:08 AM Interpretation: Performing Lab: Notes/Report: TEST REQUESTED LDH, HAPTOGLOBIN STATUS Add on order being processed. Floor or provider will be notified if testing cannot be performed TYPE AND SCREEN Reviewed date:05/03/2025 08:04:12 PM Interpretation: Performing Lab: Notes/Report: ABO/RH A Positive ANTIBODY SCREEN Positive A EXPIRATION DATE OF SAMPLE 05/03/2025,235 RESULTING AGENCY SUNQUEST [facility] ANTIBODY IDENTIFICATION Anti M (37c Active). RBC - UNIT NUMBER [id number] RBC - COMPONENT TYPE RBC LR RBC - PRODUCT CODE [id number] RBC - UNIT DIVISION 00 RBC - PRODUCT STATUS OF UNIT ISSUED,FINAL TYPE AND SCREEN - UNIT TAG COMMENT M NEG. PANDEMIC RESPIRATORY VIRAL O RDER (PRO) Reviewed date:05/02/2025 07:52:54 AM Interpretation: Performing Lab: Notes/Report: SARS-CoV-2 not detected Negative results do not preclude SARS-CoV-2 infection and should not be used as the sole basis for patient management decisions. Negative results must be combined with clinical observations, patient history, and epidemiological information. This test has been authorized by the FDA under an Emergency Use Authorization (EUA) for use by authorized laboratories. TEST ORDERED COVID has been ordered SPECIMEN SOURCE/DESCRIPTION NASAL SARS-COV 2 (COVID-19) PCR Negative Negative Haptoglobin Reviewed date:05/02/2025 07:47:35 AM Interpretation: Performing Lab: Notes/Report: HAPTOGLOBIN 260 30-200 mg/dL H Fecal immunochemical test x1 (FIT) Reviewed date:05/02/2025 07:47:43 AM Interpretation: Performing Lab: Notes/Report: IMMUNO FECAL OCCULT Negative Negative CBC Reviewed date:05/02/2025 07:47:47 AM Interpretation: Performing Lab: Notes/Report: Consistent with previous. WBC 4.81 4.00-11.00 K/uL RBC 2.15 4.50-5.90 M/uL L HGB 7.1 13.5-17.5 g/dL L HCT 22.7 41.0-53.0 % L MCV 105.6 80.0-100.0 fL H MCH 33.0 27.0-31.0 pg H MCHC 31.3 32.0-36.0 g/dL L RDW 13.8 11.5-14.5 % MPV 9.4 8.4-12.0 fL PLT 87 150-450 K/uL L NRBC 0.00 0.00 /100 WBCs ABSOLUTE NRBC 0.00 0.00 K/uL HEPATIC FUNCTION PANEL Reviewed date:05/02/2025 07:50:36 AM Interpretation: Performing Lab: Notes/Report: ALKALINE PHOSPHATASE 43 39-117 U/L TOTAL BILIRUBIN 0.4 0.0-1.2 mg/dL DIRECT BILIRUBIN 0.2 0.0-0.2 mg/dL BILIRUBIN (INDIRECT) 0.2 0-1.5 mg/dL AST 12 0-37 U/L ALT 12 0-40 U/L TOTAL PROTEIN 6.6 6.5-8.0 g/dL ALBUMIN 3.4 3.9-4.8 g/dL L A/G RATIO 1.06 1.00-4.80 RATIO GLOBULIN 3.2 1-4.8 g/dL CBC Reviewed date:05/02/2025 07:43:45 AM Interpretation: Performing Lab: Notes/Report: WBC 5.20 4.00-11.00 K/uL RBC 2.30 4.50-5.90 M/uL L HGB 7.7 13.5-17.5 g/dL L HCT 24.1 41.0-53.0 % L MCV 104.8 80.0-100.0 fL H MCH 33.5 27.0-31.0 pg H MCHC 32.0 32.0-36.0 g/dL RDW 13.7 11.5-14.5 % MPV 9.3 8.4-12.0 fL PLT 102 150-450 K/uL L NRBC 0.00 0.00 /100 WBCs ABSOLUTE NRBC 0.00 0.00 K/uL BASIC METABOLIC PANEL Reviewed date:05/02/2025 07:43:41 AM Interpretation: Performing Lab: Notes/Report: SODIUM 142 133-146 mmol/L CHLORIDE 108 96-108 mmol/L POTASSIUM 4.1 3.3-5.1 mmol/L CO2 26 21-35 mmol/L BUN 23 6-19 mg/dL H CREATININE 1.70 0.5-1.5 mg/dL H GLUCOSE 89 70-99 mg/dL CALCIUM 8.8 8.4-10.3 mg/dL EGFR 39 >59 mL/min/1.73m2 L Estimated glomerular filtration rate calculated using the CKD-EPI refit equation. ANION GAP 12 10-20 mmol/L POCT GLUCOSE Reviewed date:05/03/2025 07:59:50 PM Interpretation: Performing Lab: Notes/Report: GLUCOSE, POCT 141 70-100 mg/dL H CBC Reviewed date:05/03/2025 10:58:37 AM Interpretation: Performing Lab: Notes/Report: WBC 5.88 4.00-11.00 K/uL RBC 2.66 4.50-5.90 M/uL L HGB 8.5 13.5-17.5 g/dL L HCT 26.5 41.0-53.0 % L MCV 99.6 80.0-100.0 fL VERIFIED MCH 32.0 27.0-31.0 pg H MCHC 32.1 32.0-36.0 g/dL RDW 16.3 11.5-14.5 % H MPV 9.4 8.4-12.0 fL PLT 100 150-450 K/uL L NRBC 0.00 0.00 /100 WBCs ABSOLUTE NRBC 0.00 0.00 K/uL BASIC METABOLIC PANEL Reviewed date:05/03/2025 10:58:42 AM Interpretation: Performing Lab: Notes/Report: SODIUM 141 133-146 mmol/L CHLORIDE 108 96-108 mmol/L POTASSIUM 4.2 3.3-5.1 mmol/L CO2 24 21-35 mmol/L BUN 24 6-19 mg/dL H CREATININE 1.80 0.5-1.5 mg/dL H GLUCOSE 86 70-99 mg/dL CALCIUM 8.6 8.4-10.3 mg/dL EGFR 36 >59 mL/min/1.73m2 L Estimated glomerular filtration rate calculated using the CKD-EPI refit equation. ANION GAP 13 10-20 mmol/L TSH with reflex Reviewed date:04/10/2025 08:05:36 PM Interpretation: Performing Lab: Notes/Report: TSH 1.87 0.27-4.20 uIU/mL BASIC METABOLIC PANEL Reviewed date:04/10/2025 08:06:10 PM Interpretation: Performing Lab: Notes/Report: SODIUM 140 133-146 mmol/L CHLORIDE 102 96-108 mmol/L POTASSIUM 4.4 3.3-5.1 mmol/L CO2 28 21-35 mmol/L BUN 37 6-19 mg/dL H CREATININE 2.00 0.5-1.5 mg/dL H GLUCOSE 99 70-99 mg/dL CALCIUM 9.7 8.4-10.3 mg/dL EGFR 32 >59 mL/min/1.73m2 L Estimated glomerular filtration rate calculated using the CKD-EPI refit equation. ANION GAP 14 10-20 mmol/L PT-INR Reviewed date:04/10/2025 08:06:12 PM Interpretation: Performing Lab: Notes/Report: PT 12.2 10.2-12.9 sec INR 1.0 0.9-1.1 Therapeutic range for oral Vitamin K antagonists: 2.0-3.5 HEPATIC FUNCTION PANEL Reviewed date:04/10/2025 08:05:57 PM Interpretation: Performing Lab: Notes/Report: ALKALINE PHOSPHATASE 66 39-117 U/L TOTAL BILIRUBIN 0.5 0.0-1.2 mg/dL DIRECT BILIRUBIN 0.2 0.0-0.2 mg/dL BILIRUBIN (INDIRECT) 0.3 0-1.5 mg/dL AST 16 0-37 U/L ALT 9 0-40 U/L TOTAL PROTEIN 7.8 6.5-8.0 g/dL ALBUMIN 4.1 3.9-4.8 g/dL A/G RATIO 1.11 1.00-4.80 RATIO GLOBULIN 3.7 1-4.8 g/dL URINE MICROSCOPIC Reviewed date:04/10/2025 08:06:21 PM Interpretation: Performing Lab: Notes/Report: WBC TOO NUMEROUS TO COUNT NONE SEEN /hpf A Standard 12 mL volume not received. Microscopic performed on centrifuged urine, volume: 2.5 mL RBC TOO NUMEROUS TO COUNT NONE SEEN /hpf A URINE EPITHELIAL NONE SEEN NONE SEEN MUCUS 1+ NONE SEEN /hpf A BACTERIA 3+ NONE SEEN /hpf A BLOOD CULTURE Reviewed date:04/12/2025 10:55:45 AM Interpretation: Performing Lab: Notes/Report: Aerobic and Anaerobic bottles: METHICILLIN RESISTANT STAPH AUREUS Aerobic and Anaerobic bottles: ENTEROCOCCUS FAECALIS SPECIAL REQUESTS None BLOOD CULTURE Critical Result. Res ults called to and read back by: GREYSON Muhammad AT N3 AT 0730 A BLOOD CULTURE 9321METHICILLIN RESI STANT STAPH AUREUSMETHICILLIN RESISTANT STAPH AUREUS A Penicillin G >=0.5 R Clindamycin <=0.25 SS Erythromycin >=8 R Gentamicin <=0.5 SS Levofloxacin >=8 R Linezolid 2 SS Oxacillin(methicillin) >=4 R Rifampin <=0.5 SS Tetracycline <=1 SS Trimethoprim/sulfamethoxa zole <=10 SS Vancomycin <=0.5 SS BLOOD CULTURE 189ENTEROCOCCUS FAECALISENTEROCOCCUS FAECALIS A Ampicillin <=2 SS Penicillin G 8 SS Erythromycin >=8 R Vancomycin 1 SS Lactate Reviewed date:04/10/2025 08:06:15 PM Interpretation: Performing Lab: Notes/Report: LACTATE 2.16 0.50-2.20 mmol/L Sedimentation rate (ESR) Reviewed date:04/10/2025 08:05:30 PM Interpretation: Performing Lab: Notes/Report: ESR 19 0-20 mm/h CRP Reviewed date:04/10/2025 08:05:24 PM Interpretation: Performing Lab: Notes/Report: C REACTIVE PROTEIN 18.6 0.0-4.0 mg/L H Lipase Reviewed date:04/10/2025 08:06:05 PM Interpretation: Performing Lab: Notes/Report: LIPASE 107 16-63 U/L H Magnesium Reviewed date:04/10/2025 08:05:53 PM Interpretation: Performing Lab: Notes/Report: MAGNESIUM 2.0 1.6-2.6 mg/dL NT-proBNP Reviewed date:04/10/2025 08:05:44 PM Interpretation: Performing Lab: Notes/Report: NT-PROBNP 176 0-450 pg/mL Troponin T Reviewed date:04/10/2025 08:05:42 PM Interpretation: Performing Lab: Notes/Report: TROPONIN-T, HS GEN5 21 0-14 ng/L H Venous blood gas Reviewed date:04/10/2025 08:05:32 PM Interpretation: Performing Lab: Notes/Report: PH, VENOUS 7.42 7.31-7.41 H PCO2, VENOUS 38.90 41.00-51.00 mmHg L PO2, VENOUS 63.40 35.00-40.00 mmHg H HCO3, VENOUS 25 23-28 mmol/L BASE EXCESS VENOUS 0.3 0.0-3.0 mmol/L SO2, VENOUS 92.30 60.00-80.00 % H FO2HB, VENOUS 90.40 71.00-74.00 % H CARBOXY HGB 1.80 0-1.50 % H METHGB % 0.30 0-1.50 % CBC AND DIFFERENTIAL Reviewed date:04/10/2025 08:06:18 PM Interpretation: Performing Lab: Notes/Report: WBC 12.90 4.00-11.00 K/uL H RBC 3.26 4.50-5.90 M/uL L HGB 10.9 13.5-17.5 g/dL L HCT 35.0 41.0-53.0 % L PLT 221 150-450 K/uL MCV 107.4 80.0-100.0 fL H MCH 33.4 27.0-31.0 pg H MCHC 31.1 32.0-36.0 g/dL L RDW 14.9 11.5-14.5 % H MPV 8.8 8.4-12.0 fL NRBC 0.00 0.00 /100 WBCs ABSOLUTE NRBC 0.00 0.00 K/uL DIFF METHOD Auto NEUTS 83.5 48.0-76.0 % H LYMPHS 9.8 18.0-41.0 % L MONOS 4.7 4.0-11.0 % EOS 1.2 0.0-5.0 % BASOS 0.3 0.0-1.5 % GRANULOCYTES, IMMATURE (%) 0.5 0.0-0.9 % ABSOLUTE NEUTS 10.78 1.92-7.60 K/uL H ABSOLUTE LYMPHS 1.27 0.72-4.10 K/uL ABSOLUTE MONOS 0.60 0.16-1.10 K/uL ABSOLUTE EOS 0.15 0.00-0.50 K/uL ABSOLUTE BASOS 0.04 0.00-0.15 K/uL GRANULOCYTES, IMMATURE 0.06 0.00-0.09 K/uL Urinalysis w/reflex Urine Cu lture Reviewed date:04/10/2025 08:06:28 PM Interpretation: Performing Lab: Notes/Report: COLOR Abnormal Urine Color May Yield False Positive Results - Interpret Dipstick Results with Caution Yellow A RED Corrected on 04/09 AT 1703: previously reported as Red CLARITY TURBID GLUCOSE Negative Negative BILI 3+ Negative A KETONES 1+ Negative A SPECIFIC GRAVITY 1.015 1.005-1.030 BLOOD 3+ Negative A PH 7.0 5.0-8.0 PROTEIN 3+ Negative A NITRITE Positive Negative A LEUKOCYTE ESTERASE, UR 3+ Negative A CBC Reviewed date:05/06/2025 08:14:13 PM Interpretation: Performing Lab: Notes/Report: WBC 6.90 4.00-11.00 K/uL RBC 2.83 4.50-5.90 M/uL L HGB 9.2 13.5-17.5 g/dL L HCT 28.4 41.0-53.0 % L MCV 100.4 80.0-100.0 fL H MCH 32.5 27.0-31.0 pg H MCHC 32.4 32.0-36.0 g/dL RDW 16.4 11.5-14.5 % H MPV 9.4 8.4-12.0 fL PLT 148 150-450 K/uL L NRBC 0.00 0.00 /100 WBCs ABSOLUTE NRBC 0.00 0.00 K/uL Reason For Referral No Information Medications Medication SIG (Take, Route, Frequency, Duration) Notes Start Date End Date Status Vitamin D 25 MCG (1000 UT) Tablet [...] of fluid Orally Once a day Active buPROPion HCl ER (XL) 150 MG Tablet Extended Release 24 Hour 1 tablet Orally Once a day; Duration: 90 days Active Bactrim DS 800-160 MG Tablet 1 tablet Orally twice a day Active Lisinopril 10 MG Tablet 1 tablet Orally once a day; Duration: 90 days Active Albuterol Sulfate HFA 108 (90 Base) MCG/ACT Aerosol Solution 1 puff as needed Inhalation every 4 hrs as needed for wheeze; Duration: 15 days Active Advil 200 MG Tablet 1 tab(s) orally ever y 6 hours prn Active Aspirin 325 MG Tablet 1 tab(s) orally QD Active Immunizations Vaccine Route Administration Date Status Comme nts Tdap Adacel,purchased IM Intramuscular 03/24/2012 Administered office purchas ed TDAP >7 PURCHASED (ADACEL) IM Intramuscular 07/10/2021 Administered Td vaccine, state IM Intramuscular 05/22/2009 Administered SHINGRIX PURCHASED IM Intramuscular 05/10/2020 Administere d SHINGRIX PURCHASED IM Intramuscular 02/19/2024 Administere d PREVNAR 20 PURCHASED IM Intramuscular 02/19/2024 Administered PREVNAR 13 STATE SUPPLIED IM Intramuscular 02/10/2013 Administered PNEUMOVAX 23 PURCHASED IM Intramuscular 03/12/2016 Administered H1N1 injection, State supplied IM Intramuscular 11/09/2009 Administered State provided H1N1 injection Fluzone High-Dose IM Intramuscular 06/19/2011 Administered office purchased fluzone high dose, signed ABN Fluzone High-Dose IM Intramuscular 07/03/2012 Administered Fluzone High-Dose IM Intramuscular 07/16/2013 Administered Fluzone High-Dose IM Intramuscular 10/05/2014 Administered Fluzone High-Dose IM Intramuscular 09/11/2016 Administered Fluzone High-Dose IM Intramuscular 07/15/2017 Administered FLUZONE HIGH DOSE 65+ PURCHASED IM Intramuscular 08/07/2018 Administered FLUZONE HIGH DOSE 65+ PURCHASED IM Intramuscular 07/14/2019 Administered FLUZONE HIGH DOSE 65+ PURCHASED IM Intramuscular 06/28/2021 Administered FLUZONE HIGH DOSE 65+ PURCHASED IM Intramuscular 09/04/2023 Administered Fluzone (6mos & up), purchased IM Intramuscular 11/09/2009 Administered Fluzone (6mos & up), purchased IM Intramuscular 08/14/2010 Administered office purchase d Fluzone, Signed ABN Fluvirin, state IM Intramuscular 11/11/2008 Administered s carballo purchased flu vaccine COVID-19 Vaccine, Moderna, State Supplied IM Intramuscular 11/24/2020 Administered COVID-19 Vaccine, Moderna, State Supplied IM Intramuscular 12/26/2020 Administered Covid Vaccine Booster (Moderna), History Unknown 08/06/2021 Administered COVID VACC 19+ PFIZER PURCHASED IM Intramuscular 09/04/2023 Administered COVID VACC 19+ PFIZER PURCHASED IM Intramuscular 12/31/2023 Administered Covid Vac Bivalent Moderna,History Unknown 10/03/2022 Administered Social History Social History Additional Details Category Social Info Options Details Social History Occupation: retired [employer], [employer] Alcohol: 1-2 drinks per w [place] Exercise: walking 3-4 x a week. [place] is really having trouble walking. Caffeine: 2 cups of tea Marital Status: Children: 5 -3 sons, 2 devan ghters lives in [place] in [place] Notes: loves to sail loves to sail loves to sail loves to sail loves to sail loves to sail loves to sail loves to sail loves to sail loves to sail loves to sail loves to sail loves to sail loves to sail loves to sail loves to sail loves to sail loves to sail loves to sail loves to sail loves to sail loves to sail loves to sail loves to sail loves to sail loves to sail loves to sail loves to sail loves to sail loves to sail loves to sail loves to sail loves to sail loves to sail loves to sail loves to sail loves to sail loves to sail loves to sail loves to sail loves to sail loves to sail loves to sail loves to sail loves to sail loves to sail loves to sail loves to sail loves to sail loves to sail loves to sail loves to sail loves to sail loves to sail loves to sail loves to sail loves to sail loves to sail loves to sail loves to sail loves to sail loves to sail loves to sail loves to sail loves to sail loves to sail loves to sail loves to sail loves to sail loves to sail loves to sail loves to sail loves to sail loves to sail loves to sail loves to sail loves to sail loves to sail loves to sail loves to sail loves to sail loves to sail loves to sail loves to sail loves to sail loves to sail loves to sail loves to sail loves to sail loves to sail loves to sail loves to sail loves to sail loves to sail loves to sail loves to sail loves to sail loves to sail loves to sail loves to sail loves to sail loves to sail loves to sail loves to sail loves to sail loves to sail loves to sail loves to sail loves to sail loves to sail loves to sail loves to sail loves to sail loves to sail loves to sail loves to sail loves to sail loves to sail loves to sail loves to sail loves to sail loves to sail loves to sail loves to sail loves to sail loves to sail loves to sail loves to sail loves to sail loves to sail loves to sail loves to sail loves to sail loves to sail loves to sail loves to sail loves to sail loves to sail loves to sail loves to sail loves to sail loves to sail loves to sail loves to sail loves to sail loves to sail loves to sail loves to sail loves to sail loves to sail loves to sail loves to sail loves to sail loves to sail loves to sail loves to sail loves to sail loves to sail loves to sail loves to sail loves to sail loves to sail loves to sail loves to sail loves to sail loves to sail Problems Problem Type SNOMED Code ICD Code Onset Dates Problem Status W/U Status Risk Notes Problem Chronic renal failur e syndrome (67884182) Kidney Disease, Chronic (N18.9) Active confirmed Problem Allergic rhinitis (35575075) Allergic rhinitis, unspecified (J30.9) Active confirmed Problem Joint pain (21515992) Arthralgia, (M25.50) Activ e confirmed Problem Hernia of anterior abdominal wall (disorder) (191591210) Ventral hernia without obstruction or gangrene (K43.9) Active confirmed Problem Seasonal allergic rhinitis (363770745) Seasonal allergic rhinitis, Other (J30.2) Active confirmed Problem Skin sensation disturbance (64598148) Paresthesia of skin (R20.2) Active confirmed Problem Constipation (33068652) Constipation, unspecified (K59.00) Active confirmed Problem Vitamin D deficiency (21349261) Vitamin D deficiency, unspecified (E55.9) Active confirmed Problem Parkinson's disease (88492157) Parkinson's disease (G20) Active confirmed Problem 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 Problem Alzheimer's disease (38373855) Alzheimer's disease, other (G30.8) Active confirmed Problem Alzheimer's disease (56933365) Alzheimer's disease, unspecified (G30.9) Active confirmed Problem 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 confirmed Problem Obstructive sleep apnea syndrome (33085017) SHARYN (G47.33) Active confirmed Problem Sensorineural hearin g loss (20589260) Hearing loss Unspecified (H90.5) Active confirmed Problem Atherosclerosis of renal artery (24622041) Atherosclerosis of renal artery (I70.1) Active confirmed Problem Chronic rhinitis (88453905) Rhinitis Chronic (J31.0) Active confirmed Problem 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, lumbar region (M51.36) Active confirmed Problem Chronic renal failur e syndrome (42039670) CKD, unspecified (N18.9) Active confirmed Problem Gait abnormality (26858083) Gait abnormality (R26.9) Active confirmed Problem C-reactive protein abnormal (006824804) Elevated C-reactive protein (CRP) (R79.82) Active confirmed Problem Injury of head (19956141) Unspecified injury of head, initial encounter (S09.90XA) Active confirmed Problem Unspecified open wound, left thigh, subsequent encounter (S71.102D) Active confirmed Problem Family history of malignant neoplasm of breast (750001511) Family hx Breast CA (Z80.3) Active confirmed Problem Family history of sudden cardiac (736147138878922) Family history of sudden cardiac (Z82.41) Active confirmed Problem History of fall (368612591) History of falling (Z91.81) Active confirmed Problem 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) Active confirmed Problem Alzheimer's disease (58940829) Alzheimer's disease, other (G30.8) Active confirmed Problem Hyperlipidemia (58626576) Hyperlipidemia unspecified (E78.5) Active confirmed Problem Hypertension (80084817) HTN (I10) Active confirmed Problem Urinary tract infection (08192084) UTI (N39.0) Active confirmed Problem Urinary incontinence (085755596) Incontinence urinary (R32) Active confirmed Problem Hypercholesterolemia (00509727) Hypercholesterolemia (E78.00) Active confirmed Problem 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, 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 confirmed Problem Lower urinary tract symptoms due to benign prostatic hypertrophy (15537819281081) Benign prostatic hyperplasia with lower urinary tract symptoms (N40.1) Active confirmed Problem Dementia (47049625) Dementia NOS (F03.90) Active confirmed Problem Abrasion of left forearm (76718575410394937) Abrasion of left forearm, initial encounter (S50.812A) Active confirmed Problem Chronic kidney disease stage 3B (disorder) (022882045) Chronic kidney disease, stage 3b (N18.32) Active confirmed Problem Chronic kidney disease stage 3B (disorder) (814074612) CKD Stage 3B (N18.32) Active confirmed Problem Diffuse Lewy body disease (10662345) 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) Active confirmed Vital Signs Temperature 98.6 degrees Fahrenheit 05/13/2025 Blood pressure diastolic 88 mm Hg 06/27/2025 Oximetry 98 06/27/2025 Blood pressure systolic 138 mm Hg 06/27/2025 Encounters Encounter Location Date Provider Diagnosis [facility] [address] [place] [address] 06/24/2025 Ana Farias [facility] [address] [place] [address] 07/08/2024 Ana Lynnkinson [facility] [address] [place] [address] 07/08/2024 Ana Farias [facility] [address] [place] [address] 07/12/2024 Ana Farias [facility] [address] [place] [address] 07/12/2024 Ana [facility] [address] [place] [address] 07/12/2024 Ana [facility] [address] [place], [place] [address] 08/04/2024 Ana [facility] [address] [place] [address] 10/31/2024 Ana [facility] [address] [place], [place] [address] 11/05/2024 Ana [facility] [address] [place] [address] 11/[facility] [address] [place] [address] 11/18[facility] [address] [place] [address] 01/20/2025 [facility] [address] [place], [place] [address] 01/21/2025 Ana [facility] [address] [place] [address] 01/26/2025 [facility] [address] [place], [place] [address] 02/02/2025 Ana [facility] [address] [place] [address] 02/09/2025 Ana [facility] [address] [place] [address] 02/21/2025 Ana [facility] [address] [place] [address] 02/28/2025 Ana [facility] [address] [place] [address] 03/04/2025 Ana [facility] [address] [place] [address] 03/09/2025 Ana [facility] [address] [place] [address] 03/09/2025 Ana [facility] [address] [place] [address] 04/04/2025 Ana [facility] [address] [place] [address] 04/10/2025 Ana [facility] [address] [place] [address] 04/11/2025 [facility] [address] [place] [address] 04/15/2025 Ana [facility] [address] [place] [address] 04/18/2025 Ana [facility] [address] [place] [address] 04/19/2025 Ana [facility] [address] [place] [address] 04/26/2025 [facility] [address] [place] [address] 05/05/2025 [facility] [address] [place] [address] 05/06/2025 [facility] [address] [place] [address] 05/09/2025 [facility] [address] [place] [address] 05/13/2025 [facility] [address] [place] [address] 05/16/2025 Ana [facility] [address] [place] [address] 05/18/2025 Ana [facility] [address] [place] [address] 06/07/2025 Ana [facility] [address] [place] [address] 08/12/2024 Ana Farias Dementia NOS F03.90 and Mole Atypical D22.9 [facility] [address] [place] [address] 01/20/2025 Ana Farias Alzheimer's disease, other G30.8 and Kidney Disease, Chronic N18.9 [facility] [address] [place] [address] 05/09/2025 Derrick Broderick No Show or Late Canc el NS.LTCX [facility] [place] [address] [place] [address] 03/01/2025 Ana Farias Adult physical NORMAL Z00.00 and No Show or Late Cancel NS.LTCX [facility] [place] [address] [place] [address] 07/05/2024 Keisah Ding Cough, unspecified R 05.9 ; Neurocognitive disorder with Lewy bodies G31.83 ; Hearing loss Unspecified H90.5 ; HTN I10 and Alzheimer's disease, other G30.8 [facility] [address] [place] [address] 08/10/2024 Keisha Ding COVID-19 CONFIRMED D X U07.1 ; Cough, unspecified R05.9 ; Neurocognitive disorder with Lewy bodies G31.83 ; HTN I10 and Alzheimer's disease, other G30.8 [facility] [address] [place] [address] 09/21/2024 Keisha Ding Mole Atypical D22.9 ; Neurocognitive disorder with Lewy bodies G31.83 ; HTN I10 and Alzheimer's disease, other G30.8 [facility] [address] [place] [address] 02/21/2025 Hans Elizabeth No Show or Late Canc el NS.LTCX [facility] [address] [place] [address] 07/19/2024 Ana Farias COVID-19 CONFIRMED DX U07.1 [facility] [address] [place] [address] 01/23/2025 Ana Farias Sepsis due to Escherichia coli [E. coli] A41.51 ; Dementia NOS F03.90 and CKD Stage 3B N18.32 [place] [address] [place] [address] 02/14/2025 Keisha Ding Alzheimer's disease, other G30.8 ; Kidney Disease, Chronic N18.9 ; Neurocognitive disorder with Lewy bodies G31.83 and HTN I10 [place] [address] [place] [address] 02/28/2025 Keisha Timur Alzheimer's disease, other G30.8 ; Kidney Disease, Chronic N18.9 ; Neurocognitive disorder with Lewy bodies G31.83 ; HTN I10 and UTI N39.0 [place] [address] [place] [address] 05/23/2025 Keisha Timur Sepsis, unspecified organism A41.9 ; Alzheimer's disease, other G30.8 ; Chronic kidney disease, stage 3b N18.32 and SHARYN G47.33 [place] [address] [place] [address] 06/27/2025 Keisha Timur Other asthma J45.998 ; Alzheimer's disease, unspecified [...] NOS F03.90 and Hearing loss Unspecified H90.5 [place] [address] [place] [address] 05/13/2025 Ana Lynnkinson Sepsis, unspecified organism A41.9 ; Alzheimer's disease, other G30.8 ; Chronic kidney disease, stage 3b N18.32 and SHARYN G47.33 Assessments Encounter Date Diagnosis (ICD Code) Assessment Notes Treatment Notes Treatment Clinical Notes Section Notes 07/05/2024 Cough, unspecified (ICD-10 - R05.9) try 2 sprays flonase and 1 zyrtec every night for a few weeks and see if it calms down the coughnot an ]not an issue that is bothering them right now 07/19/2024 COVID-19 CONFIRMED D X (ICD-10 - U07.1) Reviewed patient risk factors and determined that patient warrant treatment.. teach re meds, need to check Pulse ox 2x a day for 2 weeks and call if oxygen level stays below 93%. start a daily regular strength aspirin. activate EMS is severe symptoms or shortness of breath or chest pain i 08/10/2024 COVID-19 CONFIRMED D X (ICD-10 - U07.1) Reviewed patient risk factors and determined that patient warrant treatment.. teach re meds, need to check Pulse ox 2x a day for 2 weeks and call if oxygen level stays below 93%. start a daily regular strength aspirin. activate EMS is severe symptoms or shortness of breath or chest pain pt seen 08/10/24 doing well - all resolved with some residual cough (not heard) but states that he is much better and getting better every day. not needing albuterol - has appt to see GENOVEVA on . i 08/12/2024 Mole Atypical (ICD-1 0 - D22.9) following informed consent and using sterile technique anesthesia obtained with 0.1 cc to lesion of 1% lido with epi and bicarb. cleansed and lesion(s) fully excised, cautery and DSD. specs sent to pathology. tolerated proc well. postop instructions 08/12/2024 Dementia NOS (ICD-10 - F03.90) 01/20/2025 Kidney Disease, Chronic (ICD-10 - N18.9) 01/20/2025 Alzheimer's disease, other (ICD-10 - G30.8) dw 01/23/2025 Sepsis due to Escherichia coli [E. coli] (ICD-10 - A41.51) home visit w pt and his wfe to assess how he is since dc home. they are both doing well 31 minutes spent on a home visit 09/21/2024 Mole Atypical (ICD-1 0 - D22.9) all clear - can't locate i 02/21/2025 No Show or Late Canc el (ICD-10 - NS.LTCX) 02/28/2025 Kidney Disease, Chronic (ICD-10 - N18.9) i 02/28/2025 Alzheimer's disease, other (ICD-10 - G30.8) dw i 02/14/2025 Alzheimer's disease, other (ICD-10 - G30.8) dw i 03/01/2025 Adult physical CARL L (ICD-10 - Z00.00) 03/01/2025 No Show or Late Canc el (ICD-10 - NS.LTCX) 05/09/2025 No Show or Late Canc el (ICD-10 - NS.LTCX) 05/13/2025 Sepsis, unspecified organism (ICD-10 - A41.9) review hospital notes and labs review plan of care w and dsicuss w [facility] 40 minutes total spent 05/13/2025 Alzheimer's disease, other (ICD-10 - G30.8) 05/23/2025 Sepsis, unspecified organism (ICD-10 - A41.9) PLAN 1) continue monthly visits, he has good connection w/ pcp - my visits are to keep an eye on more chronic changing situation - reviewing care taking situation at home 2) urology: has switched to [facility] Mustafa in [place] - and the situation seem stable at the moment 3) caregiving someone coming in almost daily while [facility] is involved. PT 3 x a week, hired support 2 x week,family 2 x week (few hours). 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) i 02/14/2025 Kidney Disease, Chronic (ICD-10 - N18.9) i 01/23/2025 Dementia NOS (ICD-10 - F03.90) 08/10/2024 Cough, unspecified (ICD-10 - R05.9) this issue is not currently accounting for cough (leftover coughing from covid) - but reinforced that need to continue w/ this to eliminiate that upper resp cough she speaks of i 07/05/2024 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) 07/05/2024 Hearing loss Unspecified (ICD-10 - H90.5) 08/10/2024 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) i 01/23/2025 CKD Stage 3B (ICD-10 - N18.32) 09/21/2024 HTN (ICD-10 - I10) i 02/14/2025 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 the house hold is well supported. i will follow up in 2 months - she feels that the holidays will be ok this year. i 08/10/2024 HTN (ICD-10 - I10) i 07/05/2024 HTN (ICD-10 - I10) 07/05/2024 Alzheimer's disease, other (ICD-10 - G30.8) plan continues as before - however things are going well at the moment and there is enough support around. just conitinue to monitor and respond to changes as needed she has gotten some extra support /cleaning 08/10/2024 Alzheimer's disease, other (ICD-10 - G30.8) supports are adequate at the moment. the house hold is well supported. 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 I will check in once a month now that summer is ending they will be around more and it feels that the 2 month window is not sufficient at this time. she agrees. 02/14/2025 Other PLAN 1) continue visits - I will see in a few weeks given instability in the home situation (wifes concerns about her well being 2) encourage continue to increase support 3) message sent to pcp to update on the situation in home i 02/21/2025 Other Medical decision-making was shared with the patient, and all questions were addressed. Please excuse any typos or grammatical errors. Contact our office for clarification if needed 02/28/2025 Other PLAN 1) continue to monitor - asked to decrease again for the summer so I will come in 2 months she will reach out to me easily in email if there is any change needing a sooner visit 2) caregivers have increased and caregiver appears stronger/happie r 3)delmar himself appears well - no issues seen today i 05/13/2025 Other Patient's medication as of hospital discharge reconciled today in office. Hospital discharge summary and associated documentation are on file and reviewed in detail. Review the need for diagnostic tests/treatment s and/or follow-up on pending diagnostic tests/treatment . Reviewed need for new referrals, community resources, and/or durable medical equipment at this time. Patient education regarding signs/symptoms of worsening illness to report immediately or activate the EMS system provided during office visit. Patient is verbalizing good understanding of the instructions and will follow up as planned. 06/27/2025 Other plan 1) they have good services at this time and things seems stable but since it's been pretty unpredictable I will return in a month. 2) continue to monitor esquivel care, PT, Urology, Cognition, Advanced care planning/courtney , Plan Of Treatment Pending Test Test Name Order Date X ray : Chest PA and LAT 03/02/2018 X ray : Chest PA and LAT 03/27/2019 X ray : Chest PA and LAT 01/08/2019 X ray : Chest PA and LAT 03/03/2018 Urine Dip --in house 04/16/2023 X ray : Spines, cervical 09/23/2016 X ray : Hands, bilateral 03/06/2012 Spirometry 05/08/2023 Spirometry 04/23/2023 Spirometry 04/28/2018 Rapid Strep 02/12/2018 Rapid Strep 04/07/2023 Colonoscopy 06/26/2016 Colonoscopy 11/23/2009 Sinus Series 03/03/2018 -DEEP WOUND CULTURE 01/29/2022 X ray : Sinus series 01/08/2019 Ultrasound : Renal, Bilateral 12/01/2008 MRI : Spine, lumbar 10/09/2016 CT Head w/o contrast 04/15/2016 X ray : SI joints 07/22/2012 FOBT (colon screen) 02/10/2013 X ray : Lumbosacral Spine 07/22/2012 X ray : Lumbosacral Spine 09/25/2016 PSA 03/25/2017 HSCRP 03/25/2017 HSCRP 11/06/2018 HSCRP 05/06/2019 COMPREHENSIVE METABOLIC PANL 05/06/2019 COMPREHENSIVE METABOLIC PANL 11/06/2018 COMPREHENSIVE METABOLIC PANL 03/25/2017 LIPID PANEL 03/25/2017 LIPID PANEL 11/06/2018 LIPID PANEL 05/06/2019 TSH WITH REFLEX TO T4 05/06/2019 MICROALBUMIN 02/12/2021 MICROALBUMIN 10/05/2014 TSH 11/06/2018 Vitamin D25 OH 11/06/2018 CBC AUTO DIFF 11/06/2018 CBC AUTO DIFF 05/06/2019 URINE CULTURE 04/16/2023 URINE CULTURE 01/23/2015 URINE CULTURE 02/09/2021 URINALYSIS, COMPLETE 02/09/2021 Ultrasound : Head and Neck, Soft Tissue 05/04/2021 CT CHEST WITH AND WITHOUT CONTRAST 04/23 CT CHEST WITHOUT CONTRAST 04/23/2023 MRI BRAIN WITH AND WITHOUT CONTRAST 06/21 US Duplex leg, left 04/12/2019 Covid-19 PCR (use this one) 04/07/2023 Covid-19 PCR (use this one) 10/04/2021 Rapid Covid 19 10/04/2021 Rapid Covid 19 04/07/2023 Future Test Test Name Order Date RENAL FUNCTION PANEL 01/29/2021 Next Appt Details Provider Name:Ana grady, 06/30/2025 09:30:00 AM, [address] , [place], [id number], Provider Name:Keisha Ding , 07/25/2025 11:30:00 AM, [address], [place], [id number], Insurance Providers Payer Name Payer Address Payer Phone Subscriber Number Group Number Insured Name Patient Relationship to Insured Coverage Start Date Coverage End Date MEDICARE [address] [place] [phone] [id number] [employer]IOR Self - patient is the insured 2 [employer] [facility] [address] [place] [phone] [id number] [employer]IOR Self - patient is the insured Medical (General) History Medical History History ICD Code HTN Presumptive ADHD identified as an adult 2018 Alzheimer's - dr Logan lewy body dementia- followed by [facility] elevated creatinine 2019 covid + 06/2022 covid + 06/2024 ADHD, combined type F90.2 Surgical History Surgery Date(Month/Year) bilat cataract surgery -Dr Garcia 2007 Hospitalization History Reason Date(Month/Year) [facility]- severe sepsis 04/29/25-05/03/25 [facility] - sepsis from pneumonia 06/01/24 [facility]- bowel obstruction & pneumonia 10/25-10/31/23 [facility] ER for cough, hematuria, sore throat , and fall 04/07/23 flu 01/22/2015-01/23/2015 COLONOSCOPY-; repeat 5 yrs 11/23-had colonoscopy at [facility] 2008
== END 2025-06-28 17:10 | disposition home or self-care (01) ==
LOC: HO.HUSH 15:48
PROVIDERS: PCP Family Medicine; Visit Provider Urology
DX: N31.9 Neuromuscular dysfunction of bladder, unspecified (principal); Z93.59 Other cystostomy status; Z43.5 Encounter for attention to cystostomy
CPT/HCPCS: 51705; 99204

== ENCOUNTER → 2025-06-28 15:48 | Outpatient (BNVA) | payer OTHER, MEDICARE, SELFPAY | PROVIDERS: PCP Family Medicine; Visit Provider Urology | DX: N31.9 Neuromuscular dysfunction of bladder, unspecified (principal); Z93.59 Other cystostomy status | CPT/HCPCS: 51705 ==